=== PATIENT | female | born 1965 | race Caucasian/White ===

== ENCOUNTER 2022-05-13 11:18 | Outpatient (REF) | payer OTHER, SELFPAY ==
[2022-05-13 14:03] LABS: Hematocrit 38.7 % (37.0-47.0); Hemoglobin 13.1 g/dl (12.0-16.0); Mean Corpuscular HGB Conc 33.9 g/dl (31.0-35.0); Mean Corpuscular Hemoglobin 29.7 pg (27.0-33.0); Mean Corpuscular Volume 87.8 fL (80.0-98.0); Mean Platelet Volume 10.4 fL (9.4-12.3); Platelet Count 281 X10*3/uL (160-400); Red Blood Count 4.41 X10*6/uL (4.20-5.50); White Blood Count 8.4 X10*3/uL (4.8-10.8)
[2022-05-13 14:30] LABS: Alanine Aminotransferase 6 U/L (0-31); Albumin Level 4.1 g/dL (3.5-5.0); Alkaline Phosphatase 124 U/L (39-117); Anion Gap 16 (12-20); Aspartate Amino Transferase 16 U/L (5-31); Bilirubin Total 0.3 mg/dL (0.0-1.0); Blood Urea Nitrogen 9 mg/dL (9-16); Calcium 8.9 mg/dL (8.4-10.2); Carbon Dioxide 24 mmol/L (22-29); Chloride 100 mmol/L (96-108); Cholesterol 265 mg/dL; Estimated Glomerular Filt Rate > 60; Glucose Fasting 84 mg/dL (60-99); HDL Cholesterol 49 mg/dL; LDL Cholesterol Calculated 197 mg/dl; Potassium 4.6 mmol/L (3.3-5.1); Sodium 135 mmol/L (135-145); Total Protein 6.6 g/dL (6.5-8.0); Triglycerides 96 mg/dL
[2022-05-13 14:50] LABS: TSH reflex Free T4 3.21 uIU/mL (0.32-4.0)
[2022-05-17 15:56] LABS: Vitamin D 25-OH, D2 26 ng/mL; Vitamin D 25-OH, D3 8 ng/mL; Vitamin D 25-OH, Total 34 ng/mL (30-100)
== END 2022-05-13 11:19 | disposition home or self-care (01) ==
LOC: HO.WFDLDS 11:18
PROVIDERS: Visit Provider Hospitalist
DX: Z00.00 Encounter for general adult medical examination without abnormal findings (principal); E55.9 Vitamin D deficiency, unspecified
CPT/HCPCS: 36415; 80053; 80061; 82306; 84443; 85027

== ENCOUNTER 2022-11-09 12:59 | Outpatient (REF) | payer OTHER, SELFPAY ==
--- NOTE | ~2022-11-09 | XR_ITS ---
EXAMINATION: XR LUMBOSACRAL SPINE CLINICAL INFORMATION: Lumbar radiculopathy COMPARISON: None available. TECHNIQUE: Three views of the lumbosacral spine. FINDINGS: There is 8mm anterior subluxation of L4 with respect L5. Bone alignment is otherwise normal. No fracture or dislocation. Degenerative disc disease at T12-L1. Mild degenerative disc disease at L4-L5. Lower lumbar spine facet arthritis. Atherosclerotic disease. XR/XR lumbar spine 2-3V IMPRESSION: 8 mm anterior subluxation of L4 with respect L5. Degenerative disc disease at T12-L1 and L4-L5. Lower lumbar spine facet arthritis.
== END 2022-11-09 13:00 | disposition home or self-care (01) ==
LOC: HO.XRAY 12:59
PROVIDERS: PCP Hospitalist; Visit Provider Hospitalist
DX: M54.16 Radiculopathy, lumbar region (principal)
CPT/HCPCS: 72100

== ENCOUNTER 2022-11-17 12:06 | Outpatient (REF) | payer OTHER, SELFPAY ==
[2022-11-17 15:12] LABS: TSH reflex Free T4 2.74 uIU/mL (0.32-4.0)
[2022-11-22 15:39] LABS: Vitamin D 25-OH, D2 8 ng/mL; Vitamin D 25-OH, D3 15 ng/mL; Vitamin D 25-OH, Total 23 ng/mL (30-100)
== END 2022-11-17 12:07 | disposition home or self-care (01) ==
LOC: HO.WFDLDS 12:06
PROVIDERS: Visit Provider Hospitalist
DX: E66.01 Morbid (severe) obesity due to excess calories (principal); E55.9 Vitamin D deficiency, unspecified; E03.9 Hypothyroidism, unspecified
CPT/HCPCS: 36415; 82306; 84443

== ENCOUNTER 2022-11-27 15:02 | Outpatient (REF) | payer OTHER, SELFPAY ==
--- NOTE | ~2022-11-27 | XR_ITS ---
EXAMINATION: XR LUMBOSACRAL SPINE WITH OBLIQUES CLINICAL INFORMATION: Spondylolisthesis COMPARISON: Previous x-ray October 2022 TECHNIQUE: AP lateral and flexion-extension views of the lumbar spine, 4 views FINDINGS: There is 1 cm anterior subluxation of L4 respect L5. This increases to 1.3 cm with flexion. Is unchanged with extension. Bone alignment is otherwise normal. Degenerative changes of the lower thoracic spine and at T12-L1. Mild disc space narrowing at L4-L5. Lower lumbar spine facet arthritis. Atherosclerotic disease. XR/XR lumbar spine 4V min IMPRESSION: 1 cm anterior subluxation of L4 with respect L5. This increases to 1.3 cm with flexion.
== END 2022-11-27 15:03 | disposition home or self-care (01) ==
LOC: HO.HOSX 15:02
PROVIDERS: PCP Hospitalist; Visit Provider Physician Assistant
DX: M43.16 Spondylolisthesis, lumbar region (principal); R20.0 Anesthesia of skin
CPT/HCPCS: 72110; 99202

== ENCOUNTER → 2022-12-07 11:23 | Outpatient (BNVA) | payer OTHER, SELFPAY | PROVIDERS: PCP Hospitalist; Visit Provider Nurse Practitioner Family | DX: M43.16 Spondylolisthesis, lumbar region (principal); M54.16 Radiculopathy, lumbar region; S33.140A Subluxation of L4/L5 lumbar vertebra, initial encounter; R51.9 Headache, unspecified; B02.29 Other postherpetic nervous system involvement | CPT/HCPCS: 99202 ==

== ENCOUNTER → 2022-12-25 10:57 | Outpatient (BNVA) | payer OTHER, SELFPAY | PROVIDERS: PCP Hospitalist; Visit Provider Physician Assistant | DX: S33.140A Subluxation of L4/L5 lumbar vertebra, initial encounter (principal) | CPT/HCPCS: 99212 ==

== ENCOUNTER → 2023-01-20 14:03 | Outpatient (BNVA) | payer OTHER, SELFPAY | PROVIDERS: PCP Hospitalist; Visit Provider Neurological Surgery | DX: S33.140A Subluxation of L4/L5 lumbar vertebra, initial encounter (principal) | CPT/HCPCS: Q3014 ==

== ENCOUNTER → 2023-02-02 13:07 | Outpatient (BNV) | payer OTHER, SELFPAY | PROVIDERS: Admitting Provider Neurological Surgery; PCP Hospitalist; Visit Provider Internal Medicine Cardiovascular Disease | DX: R00.1 Bradycardia, unspecified (principal) | CPT/HCPCS: 93010 ==

== ENCOUNTER 2023-02-16 05:58 | Inpatient (IN) | payer OTHER, SELFPAY ==
--- NOTE | 2023-02-02 | ECG_ITS ---
Test Reason : preop Blood Pressure : / mmHG Vent. Rate : 057 BPM Atrial Rate : 057 BPM P-R Int : 156 ms QRS Dur : 076 ms QT Int : 422 ms P-R-T Axes : 058 054 053 degrees QTc Int : 410 ms Sinus bradycardia Otherwise normal ECG No previous ECGs available Referred By: Quin Adrian Electronically Signed By:Ralph Jeong
[2023-02-02 12:33] VITALS: BP 131/80; PULSE 58; RESP 20; O2SAT 97; BMI 39.9
--- NOTE | 2023-02-02 12:46 | P.CONAN_ITS ---
Documented by User: Quin Adrian NP 02/11/23 12:18 HPI - Anesthesia Eval Consult details Narrative: 57yo F for L4-5 Oblique Lumbar Interbody Fusion, 02/16/23 No recent illness No CP/SOB with housework, groceries (limited to back pain) Smoker GERD controlled with ppi Hypothyroid with nml TSH 11/2022 ON LICENSE OF [facility] Active Problems Active Problems: All Active Problems (Updated 02/02/23 @ 12:19 by Keila Stewart RN) Normal physical exam (Acute) Hypothyroidism (acquired) (Acute) High cholesterol (Acute) Obesity (BMI 30-39.9) (Acute) Lumbar back pain with radiculopathy affecting left lower extremity (Acute) Subluxation of L4-L5 lumbar vertebra (Acute) Spondylolisthesis, lumbar region (Acute) Numbness in both hands (Acute) Post herpetic neuralgia (Acute) Chronic daily headache (Acute) History of shingles (Acute) Morbid obesity (Acute) Feeling grief (Acute) Vitamin D deficiency (Acute) Past Medical History Medical History (Updated 02/02/23 @ 12:19 by Keila Stewart RN) Arthritis Back pain Chronic daily headache Depression Elevated cholesterol Feeling grief Fibromyalgia GERD (gastroesophageal reflux disease) History of shingles Morbid obesity Numbness Thyroid disease Vitamin D deficiency Family History Family history of problems with anesthesia: No Surgical History Surgical History (Updated 02/02/23 @ 12:20 by Keila Stewart RN) History of carpal tunnel repair Hx of bariatric surgery Hx of section Hx of neck surgery History of Problems with Anesthesia: No Social History Social History Household Members: Children Household Members Other:: son Housing: House Are you a primary resident care director to a significant other at home: No Do you presently have visiting nurse or other home services: No Alcohol intake: never Patient Tobacco Use Status: Current everyday Tobacco user Tobacco use type: Cigarette Cigarette Packs Per Day: 1 Cigarettes Per Day: 20.0 Years Smoked: 42 Smoked in Last 30 Days: Yes e-Cigarette/Vaping Use: Never Used Patient Interested in Nicotine Replacement: No Use of substances other than those prescribed or required for medical reasons: Yes Substance Use Type: Marijuana Substance Use Frequency: Daily Have you been hit, kicked, punched, or otherwise hurt by someone within the past year? If so, by whom?: No Are you DNR?: No Advance Directives: No Advance Directives Information Provided: No Advance Directives on File: No Eating poorly because of decreased appetite: No Nutrition Risks: No Nutritional Risk Patient : No : No Poor oral hygiene: No Meds Allergies Allergy/AdvReac Type Severity Reaction Status Date / Time prednisone Allergy Unknown Verified 12/07/22 11:33 Home Medications Medication Instructions Recorded Confirmed Last Taken Type sumatriptan succinate 100 mg tablet 100 mg PO DAILY PRN migraine 05/13/22 02/16/23 11/16/22 History cetirizine 10 mg tablet (Zyrtec) 10 mg PO DAILY 02/02/23 02/16/23 02/16/23 History hydroxyzine HCl 25 mg tablet 25 mg PO BEDTIME PRN Insomnia 02/02/23 02/16/23 02/15/23 History omeprazole 20 mg tablet,delayed 20 mg PO BID 02/02/23 02/16/23 02/15/23 History release sertraline 100 mg tablet 100 mg PO DAILY 02/02/23 02/16/23 02/16/23 History Exam Exam Date and Time: February 02, 2023 1246 Height,Weight and Vital Signs: Height 5 ft 2 in Weight 98.883 kg Last Vital Signs Pulse 58 02/02/23 12:33 Resp 20 02/02/23 12:33 BP 131/80 02/02/23 12:33 Pulse Ox 97 02/02/23 12:33 O2 Del Method Room Air 02/02/23 12:33 Pertinent Lab Results Pertinent Lab Results: Lab Results 02/02/23 02/02/23 Range/Units 13:18 13:18 WBC 6.6 (4.8-10.8) X10*3/uL RBC 4.39 (4.20-5.50) X10*6/uL Hgb 11.8 L (12.0-16.0) g/dl Hct 36.1 L (37.0-47.0) % MCV 82.2 (80.0-98.0) fL MCH 26.9 L (27.0-33.0) pg MCHC 32.7 (31.0-35.0) g/dl RDW 17.4 H (11.0-16.0) % Plt Count 261 (160-400) X10*3/uL MPV 10.9 (9.4-12.3) fL Absolute Nucleated RBC 0.000 (0.0-0.012) X10*3/uL Nucleated RBC % (auto) 0.0 (0.0-0.2) /100WBC Sodium 138 (135-145) mmol/L Potassium 4.3 (3.3-5.1) mmol/L Chloride 105 (96-108) mmol/L Carbon Dioxide 26 (22-29) mmol/L Anion Gap 11 L (12-20) BUN 8 L (9-16) mg/dL Creatinine 0.77 (0.5-1.4) mg/dL Estim Creat Clear Calc 87.5 Estimated GFR > 60 Random Glucose 84 (60-115) mg/dL Calcium 9.0 (8.4-10.2) mg/dL Narrative Narrative: EKG 01/2023 Vent. Rate : 057 BPM ? ? Atrial Rate : 057 BPM ?? P-R Int : 156 ms? QRS Dur : 076 ms ? ? QT Int : 422 ms ? ? ? P-R-T Axes : 058 054 053 degrees ?? QTc Int : 410 ms ? Sinus bradycardia Otherwise normal ECG No previous ECGs available Airway Mallampati Class: II TM Dist: >3cm Neck ROM: Limited Loose/Missing/Broken Teeth: No Heart: RRR Lungs: CTAB Assessment and Plan Assessment Anesthesia Assessment: Anesthesia Plan Discussed, Smoking Cess. Discussed and PAT Visit Final Anesthetic Review Family History of Problems with Anesthesia: No History of Problems with Anesthesia: No Documented by User: Moreno Doty MD 02/16/23 07:29 ON LICENSE OF [facility] Past Medical History Medical History (Updated 02/02/23 @ 12:19 by Keila Stewart RN) Arthritis Back pain Chronic daily headache Depression Elevated cholesterol Feeling grief Fibromyalgia GERD (gastroesophageal reflux disease) History of shingles Morbid obesity Numbness Thyroid disease Vitamin D deficiency Surgical History Surgical History (Updated 02/02/23 @ 12:20 by Keila Stewart RN) History of carpal tunnel repair Hx of bariatric surgery Hx of section Hx of neck surgery Social History Social History Household Members: Children Household Members Other:: son Housing: House Are you a primary resident care director to a significant other at home: No Do you presently have visiting nurse or other home services: No Alcohol intake: never Patient Tobacco Use Status: Current everyday Tobacco user Tobacco use type: Cigarette Cigarette Packs Per Day: 1 Cigarettes Per Day: 20.0 Years Smoked: 42 Smoked in Last 30 Days: Yes e-Cigarette/Vaping Use: Never Used Patient Interested in Nicotine Replacement: No Use of substances other than those prescribed or required for medical reasons: Yes Substance Use Type: Marijuana Substance Use Frequency: Daily Have you been hit, kicked, punched, or otherwise hurt by someone within the past year? If so, by whom?: No Are you DNR?: No Advance Directives: No Advance Directives Information Provided: No Advance Directives on File: No Eating poorly because of decreased appetite: No Nutrition Risks: No Nutritional Risk Patient : No : No Poor oral hygiene: No Meds Allergies Allergy/AdvReac Type Severity Reaction Status Date / Time prednisone Allergy Unknown Verified 12/07/22 11:33 Home Medications Medication Instructions Recorded Confirmed Last Taken Type sumatriptan succinate 100 mg tablet 100 mg PO DAILY PRN migraine 05/13/22 02/16/23 11/16/22 History cetirizine 10 mg tablet (Zyrtec) 10 mg PO DAILY 02/02/23 02/16/23 02/16/23 History hydroxyzine HCl 25 mg tablet 25 mg PO BEDTIME PRN Insomnia 02/02/23 02/16/23 02/15/23 History omeprazole 20 mg tablet,delayed 20 mg PO BID 02/02/23 02/16/23 02/15/23 History release sertraline 100 mg tablet 100 mg PO DAILY 02/02/23 02/16/23 02/16/23 History Assessment and Plan Final Anesthetic Review NPO: Yes ASA Class: III Final Preanesthetic Review: No Changes in Pt Med Stat, Meds/Allgs Chart Reviewed, Consent Obtained/Reviewed and Anes Risks/Benef Reviewed Patient Risk: Intermediate Procedure Risk: Intermediate Anesthetic Plan Anesthetic Plan: GA and Agree w/ Assess. and Plan Disposition: Standard PACU
[2023-02-02 14:08] LABS: Hematocrit 36.1 % (37.0-47.0); Hemoglobin 11.8 g/dl (12.0-16.0); Mean Corpuscular HGB Conc 32.7 g/dl (31.0-35.0); Mean Corpuscular Hemoglobin 26.9 pg (27.0-33.0); Mean Corpuscular Volume 82.2 fL (80.0-98.0); Mean Platelet Volume 10.9 fL (9.4-12.3); Platelet Count 261 X10*3/uL (160-400); Red Blood Count 4.39 X10*6/uL (4.20-5.50); Red Cell Distribution Width 17.4 % (11.0-16.0); White Blood Count 6.6 X10*3/uL (4.8-10.8)
[2023-02-02 14:46] LABS: Anion Gap 11 (12-20); Blood Urea Nitrogen 8 mg/dL (9-16); Carbon Dioxide 26 mmol/L (22-29); Chloride 105 mmol/L (96-108); Creatinine Clr Calc Pharmacy 87.5; Estimated Glomerular Filt Rate > 60; Glucose Random 84 mg/dL (60-115); Potassium 4.3 mmol/L (3.3-5.1); Sodium 138 mmol/L (135-145)
[2023-02-16] VITALS (13 sets, daily range): BP systolic 90–128; BP diastolic 50–74; PULSE 65–85; RESP 12–20; TEMP 36.1–36.8; O2SAT 92–98
--- NOTE | ~2023-02-16 | FL_ITS ---
EXAMINATION: XR FLUOROSCOPY WITH IMAGES CLINICAL INFORMATION: Low back pain. Interbody fusion. COMPARISON: None available. TECHNIQUE: Fluoroscopy Supervised By: Dr. Pineda. Fluoroscopy Time: 1.2 minutes. Cumulative Dose: 23.23 mGy. DAP: 0.927 Gy-cm2. Images: 3. FINDINGS: There are 3 digital images obtained with disc prosthesis at the L4-L5 disc level stabilized with bilateral L4 and L5 pedicle screws and interconnecting brynn. Visualized L4 and L5 vertebral height and L5-S1 disc level is preserved. FL/FL guidance in OR IMPRESSION: L4-L5 disc fusion with hardware as described above. Fluoroscopy guidance was provided to referring physician during surgery.
[2023-02-16] MEDS: Lactated Ringers 1,000 ML 100 ML IVCONT (06:28)
[2023-02-16] MEDS: Gabapentin 300 MG CAPSULE PO (06:29)
[2023-02-16] MEDS: methocarbamoL 750 MG TABLET PO (06:29)
--- NOTE | 2023-02-16 07:06 | MHC.SHP ---
Pre-Procedural Eval Section A Date of Service: 02/16/23 The patient is an INPATIENT: No Changes since office visit: No Cold of Flu in the past 2 weeks, No New Medical Problems, No Changes in Medication and No Patient answered all questions The History & Physical has been completed within 30 days and I have reviewed it.: No Section B Chief Complaint: Subluxation of L4/L5 lumbar vertebra, initial enco Allergies: Allergies Allergy/AdvReac Type Severity Reaction Status Date / Time prednisone Allergy Unknown Verified 12/07/22 11:33 Review of Systems Sugical H&P ROS: Negative: Constitution, Cardiovascular, Respiratory, Neurological, Psychiatric, Hem-Onc, Allergic/Immunologic, Gastrointestinal, Genitourinary, Musculoskeletal, Integumentary, Endocrine and Eyes/Ears/Nose/Throat Exam Surgical H&P Exam: Not Evaluated: HEENT, Not Evaluated: Heart, Not Evaluated: Lungs, Not Evaluated: Extremities, Not Evaluated: Abdomen, Not Evaluated: Skin and Not Evaluated: Neurological Plan Diagnosis/Plan: Unchanged I have reviewed the history and physical and performed a pertinent physical examination on my patient. No changes have occurred unless specified. L4-5 OLIF Time Spent With Patient Time: Total time managing care of this patient today _10___ minutes.
--- NOTE | 2023-02-16 08:04 | PM.DS ---
DS: Providers Provider Date of Service: 02/16/23 Date of admission: 02/16/23 05:58 Date of discharge: 02/16/23 Primary care physician: Yamel Ann NP Admitting clinician: Ta Pineda DS: Diagnosis Discharge Diagnosis (1) Subluxation of L4-L5 lumbar vertebra: Status: Acute DS: Summary Time Spent with Patient Time attestation: Total time managing care of this patient today ____ minutes. Discharge coordination time: Less than 30 minutes Quality: Safe Use of Opioids Does Pt have an Active Cancer Diagnosis on the Problem List?: No Quality: Stroke Does the patient have a stroke diagnosis?: No Physical Exam Vital Signs: Vital Signs: Last Vital Signs Temp 98.2 F 02/16/23 06:02 Pulse 65 02/16/23 06:02 Resp 20 02/16/23 06:02 BP 128/69 02/16/23 06:02 Pulse Ox 96 02/16/23 06:02 O2 Del Method Room Air 02/16/23 06:02 BMI result Body Mass Index 39.9 Discharge Plan Discharge Anticipated Discharge Date/Time: 02/16/23 15:06 Patient Disposition: Home, Self-Care Discharge Diagnosis: L4-5 spondylolisthesis Referrals: Yamel nAn NP [Primary Care Provider] - 1 Week Discharge Medications: New docusate sodium [Colace] 100 mg capsule 100 mg PO BID Qty: 20 0RF oxycodone 5 mg tablet See Rx Instructions .ROUTE .COMPLEX PRN (Reason: pain) Qty: 40 0RF Rx Instructions: 1-2 tabs po q 4 hours prn pain Partial Fill upon patient request. 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 We ask you avoid heavy lifting or acitivities that cause pain. As a general rule, 8lbs is a safe limit for lifting right after surgery. Walk as much as you feel comfortable but not to exhaustion. You will feel extra tired the first few days after surgery. Stay well hydrated. It is OK to walk up and down stairs You may return to driving when you are off narcotics (such as vicodin, oxycodone, dilaudid, etc), and you are back to normal functional capacity. If you have any concerns please check with office before driving. Return to work is specific to each patient and each surgery, so please speak with your doctor/PA at first follow up. Please bring paperwork such as FMLA at that time if you need it filled out. Medications: For optimum pain control, it is best to start with a combination of 500 mg of Tylenol every 4 hours with 600 mg of Motrin every 8 hours, and use narcotics as needed in between for breakthrough pain. We will give you a short supply of narcotics after surgery (usually one weeks worth). If you need more please call the office but do not use more than prescribed. You will need to give our office 48 hours notice if you need narcotics refilled and we do not fill narcotics on weekends or evenings. If you are on a narcotic, it is a good idea to take a stool softener such as colace or senna to avoid constipation If you take blood thinner such as aspirin, Plavix, Coumadin, Effient, Eliquis etc for conditions such as Afib, DVT, Pulmonary embolus, coronary disease, stents etc please speak with your surgeon about specific details as to when you can resume these medications. Follow up: Please call the office, , after surgery to arrange a 3 week follow up for wound check. Wound Care: You may remove your dressing on the first day after surgery. You may leave open to air. Please do not remove the steri strips underneath. they will fall off on their own in one week. IT IS NORMAL FOR THE WOUND TO OOZE OR BE BLOODY FOR A FEW DAYS AFTER SURGERY. IF THIS HAPPENS JUST PLACE NEW DRESSING OVER IT TO AVOID STAINING CLOTHES. You may shower on post op day # 1 We ask that you do not let the water soak the wound. If it does get wet, just towel dry lightly. Please do not scrub your incision or place any type of chemical/ointment on the wound. No tub baths, pools or jacuzzis for one month. If you have any leaking or redness from your wound, or fevers, please call office Care Plan Goals: discharge home Health Concerns: none Plan of Treatment: discharge home Assessment: stable
--- NOTE | 2023-02-16 10:54 | W.PM.OPN ---
Operative Note Operative Note Date of Service: 02/16/23 Narrative: Preop Diagnosis: 1.) lumbar degenerative spondylolisthesis L4-5 with neurogenic claudication Procedure: L4-5 discectomy, arthrodesis and implantation cage through an anterolateral, retroperitoneal approach; posterior instrumented fusion L4- L5; allograft Consent Informed Consent was obtained for this operation. I have explained the nature, purpose and benefits of the operation. I have discussed the risks and benefit of the operation including possible complications or adverse events with patient/family. Alternative(s) were discussed with the patient with their relative benefits and risks as well as the consequences of not accepting the operation were included in obtaining consent. Surgeon: BRENDAN BRENNER MD, PHD Procedure Assisted By: Guilherme Lira PA-C Description of Procedure Tthis 57-year-old female is suffering from back pain and neurogenic claudication due to a grade 2 spondylolisthesis The patient was offered an oblique lumbar interbody fusion L4-5. The procedure complications were explained. The patient was consented. The patient was brought to the operating room and endotracheally intubated. The patient was turned in a lateral position with the left side up. Prep and drape was done followed by timeout. A small incision was made in the left lower abdominal quadrant. The muscle fascia was opened after which the 3 muscle layer was split to enter the retroperitoneal space. Dilators were docked in the anterior one third of the L4-5 disc space followed by a retractor. The retractor was opened. The L4-5 disc space was exposed. An annulotomy was done after which an elevator Childs was used to release the disc material from its endplates and to perforate the contralateral side. A partial discectomy was done. An 8 and 10 mm height trial implant were inserted. The discectomy was completed. The endplates were prepared. An 10 x 45 mm with 6 degree lordosis 4 web cage filled with allograft was inserted into the disc space under fluoroscopic guidance. This resulted in reduction of the spondylolisthesis. The retractor was removed. Hemostasis was done. The incision was closed in 2 layers. Steri-Strips used to approximate incision. An OpSite with Tegaderm was used to cover the incision. This marked first part of the procedure. The patient was turned prone on the David spine table. 2C arms were installed for fluoroscopy. Prep and drape was done followed by a second timeout. 2 paramedian incisions were made lateral from the L4-5 pedicles. The muscle fascia was opened after which the muscle layer was split bluntly to expose the posterolateral gutter. The following steps were taken. A pediguard tap was used to create a transpedicular trajectory into the vertebral body. A K wire was placed. A specially designed instrument was advanced over the K wire to decorticate the posterolateral gutter in preparation for the posterolateral fusion. A pedicle screw was advanced over the K wire and the K wire was removed. The steps were done for the bilateral L4-5 pedicles. A total of 4 screws were placed with a diameter of 6.5 x 40 mm. Pedicle screws were connected with 40 mm brynn bilaterally and locked down with locking caps. The extension towers were removed. The posterolateral gutter was filled with allograft to complete the posterolateral [] fusion Hemostasis was done and the incision was closed in 2 layers. Steri-Strips were used to approximate the incision. An OpSite were taken and was used to cover the incision. All sponge and needle counts were correct. Patient was extubated and transferred in stable is to recovery room. Anesthesia: General Estimated Blood Loss (ml): 30 Duration of Surgery: 2 hours Postoperative Plan: Admit to inpatient for observation Complications: None
[2023-02-16] MEDS: oxyCODONE HCl Immed Release 5 MG TABLET PO (11:24)
[2023-02-16] MEDS: fentaNYL citrate/PF 100 MCG/2 ML VIAL 25 MCG IVPUSH (11:24)
--- NOTE | 2023-02-16 12:50 | HO.NEURO.PN ---
Neurosurgery Operative Note Date of Service: 02/16/23 Narrative: Postop day 0 minimally invasive L4-5 oblique lumbar interbody fusion patient seen in PACU, overall looks great, pain is reasonably well controlled. She has been able to drink some liquids and hold that down without an issue. She has been up walking with PT and did well. She has been able to void on her own. Afebrile, vital signs are stable physical exam: Patient is awake alert oriented sitting up in a chair, full strength of bilateral lower extremities, abdomen obese nondistended nontender, no signs of hematoma the left lower quadrant incision, back dressings of small amount of standing but no signs of hematoma. Impression: Patient is postop day 0 minimally invasive L4-5 oblique lumbar interbody fusion for correction of spondylolisthesis. Patient requesting for discharge same day of surgery. She otherwise looks okay and has met criteria as outlined above. Dr. Pineda aware. I I gave the patient's family thorough discharge instructions and will contact him later just to check on her home.
--- NOTE | 2023-02-16 13:41 | PM.DS ---
DS: Providers Provider Date of Service: 02/16/23 Date of admission: 02/16/23 05:58 Date of discharge: 02/16/23 Primary care physician: Yamel Ann NP Admitting clinician: Ta Pineda DS: Diagnosis Discharge Diagnosis (1) Subluxation of L4-L5 lumbar vertebra: Status: Acute DS: Summary Time Spent with Patient Time attestation: Total time managing care of this patient today ____ minutes. Discharge coordination time: Less than 30 minutes Quality: Safe Use of Opioids Does Pt have an Active Cancer Diagnosis on the Problem List?: No Quality: Stroke Does the patient have a stroke diagnosis?: No Physical Exam Vital Signs: Vital Signs: Last Vital Signs Temp 97.0 F 02/16/23 12:33 Pulse 85 02/16/23 12:45 Resp 20 02/16/23 12:33 BP 116/74 02/16/23 12:45 Pulse Ox 96 02/16/23 12:45 O2 Del Method Room Air 02/16/23 12:33 O2 Flow Rate 2 02/16/23 12:03 BMI result Body Mass Index 39.9 Discharge Plan Discharge Anticipated Discharge Date/Time: 02/16/23 15:06 Patient Disposition: Home, Self-Care Discharge Diagnosis: L4-5 spondylolisthesis Referrals: Yamel Ann NP [Primary Care Provider] - 1 Week Discharge Medications: New docusate sodium [Colace] 100 mg capsule 100 mg PO BID Qty: 20 0RF oxycodone 5 mg tablet See Rx Instructions .ROUTE .COMPLEX PRN (Reason: pain) Qty: 40 0RF Rx Instructions: 1-2 tabs po q 4 hours prn pain Partial Fill upon patient request. 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 We ask you avoid heavy lifting or acitivities that cause pain. As a general rule, 8lbs is a safe limit for lifting right after surgery. Walk as much as you feel comfortable but not to exhaustion. You will feel extra tired the first few days after surgery. Stay well hydrated. It is OK to walk up and down stairs You may return to driving when you are off narcotics (such as vicodin, oxycodone, dilaudid, etc), and you are back to normal functional capacity. If you have any concerns please check with office before driving. Return to work is specific to each patient and each surgery, so please speak with your doctor/PA at first follow up. Please bring paperwork such as FMLA at that time if you need it filled out. Medications: For optimum pain control, it is best to start with a combination of 500 mg of Tylenol every 4 hours with 600 mg of Motrin every 8 hours, and use narcotics as needed in between for breakthrough pain. We will give you a short supply of narcotics after surgery (usually one weeks worth). If you need more please call the office but do not use more than prescribed. You will need to give our office 48 hours notice if you need narcotics refilled and we do not fill narcotics on weekends or evenings. If you are on a narcotic, it is a good idea to take a stool softener such as colace or senna to avoid constipation If you take blood thinner such as aspirin, Plavix, Coumadin, Effient, Eliquis etc for conditions such as Afib, DVT, Pulmonary embolus, coronary disease, stents etc please speak with your surgeon about specific details as to when you can resume these medications. Follow up: Please call the office, , after surgery to arrange a 3 week follow up for wound check. Wound Care: You may remove your dressing on the first day after surgery. You may leave open to air. Please do not remove the steri strips underneath. they will fall off on their own in one week. IT IS NORMAL FOR THE WOUND TO OOZE OR BE BLOODY FOR A FEW DAYS AFTER SURGERY. IF THIS HAPPENS JUST PLACE NEW DRESSING OVER IT TO AVOID STAINING CLOTHES. You may shower on post op day # 1 We ask that you do not let the water soak the wound. If it does get wet, just towel dry lightly. Please do not scrub your incision or place any type of chemical/ointment on the wound. No tub baths, pools or jacuzzis for one month. If you have any leaking or redness from your wound, or fevers, please call office Care Plan Goals: discharge home Health Concerns: none Plan of Treatment: discharge home Assessment: stable
== END 2023-02-16 13:25 | disposition home or self-care (01) | DRG 459 ==
PROVIDERS: Nurse Practitioner; Admitting Provider Neurological Surgery; PCP Hospitalist; Visit Provider Neurological Surgery
PROC: 0SG00A0 Fusion of Lumbar Vertebral Joint with Interbody Fusion Device, Anterior Approach, Anterior Column, Open Approach (ICD-10-PCS; principal; 2023-02-16 07:30)
DX: M43.16 Spondylolisthesis, lumbar region (principal); G95.19 Other vascular myelopathies; M79.7 Fibromyalgia; K21.9 Gastro-esophageal reflux disease without esophagitis; Z98.84 Bariatric surgery status; F17.210 Nicotine dependence, cigarettes, uncomplicated; Z71.6 Tobacco abuse counseling; Z79.899 Other long term (current) drug therapy
CPT/HCPCS: 36415; 80048; 85027; 93005; 97161; C1713; J0131; J0690; J1100; J1170; J1885; J2250; J2370; J2405; J3010; L8699

== ENCOUNTER → 2023-02-16 05:58 | Outpatient (BNV) | payer OTHER, SELFPAY | PROVIDERS: Admitting Provider Neurological Surgery; PCP Hospitalist; Visit Provider Neurological Surgery | DX: M48.062 Spinal stenosis, lumbar region with neurogenic claudication (principal); Z48.89 Encounter for other specified surgical aftercare | CPT/HCPCS: 22558; 22612; 22840; 22853 ==

== ENCOUNTER 2023-03-09 13:47 | Outpatient (REF) | payer OTHER, SELFPAY ==
--- NOTE | ~2023-03-09 | XR_ITS ---
EXAMINATION: XR LUMBOSACRAL SPINE WITH OBLIQUES CLINICAL INFORMATION: Pain COMPARISON: 11/27/2022 TECHNIQUE: AP, both oblique, and lateral views of the lumbar spine. Lateral view of the lumbosacral junction. FINDINGS: Patient is status post L5-L4 fusion and placement of intervertebral disc spacer. There is no instability on flexion and extension views. There is persistent mild L4 over L5 listhesis no evidence of fractures. And soft tissues are unremarkable. XR/XR lumbar spine 4V min IMPRESSION: Stable position of hardware at the level of L4-L5
--- NOTE | ~2023-03-09 | XR_ITS ---
EXAMINATION: XR CHEST CLINICAL INFORMATION: Pain after fall COMPARISON: None available. TECHNIQUE: 2 views of the chest were obtained. FINDINGS: No significant abnormality is noted involving the heart, lungs, mediastinum, bony thorax or soft tissues. XR/XR chest 2V IMPRESSION: Unremarkable examination.
== END 2023-03-09 13:48 | disposition home or self-care (01) ==
LOC: HO.HOSX 13:47
PROVIDERS: PCP Hospitalist; Visit Provider Physician Assistant
DX: M54.16 Radiculopathy, lumbar region (principal); W19.XXXA Unspecified fall, initial encounter
CPT/HCPCS: 71046; 72110; 99212

== ENCOUNTER 2023-03-09 13:47 | Outpatient (AMB) | payer OTHER, SELFPAY ==
--- NOTE | 2023-03-09 14:21 | HO.SPINEOV ---
Intake Intake Visit Reasons: 3 weeks after surgery Intake Note: Ms. Duenas is here today for her 1st post-op visit. 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 She is 3 weeks s/p ?L4-5 discectomy and fusion. She reports continued concern that she fell on her first day home post op. She states she fell off her toilet into her bathtub, hitting her R ribs under the breast area. She called the office after and was encouraged at that time to seek emergency medical services if she felt her rib pain was severe enough to warrant concern or affect breathing. She opted out of receiving treatment and came into the office today concerned about her rib pain. She also endorsed continued L leg pain and weakness, but reports her low back pain is significantly reduced. She inquired about X-ray imaging to rule out a rib fracture. She was informed that a CT scan would be the best diagnostic modality to review rib fractures, and she was encouraged to go to [facility] across the street for this imaging. She declined to do so and continued to request XR imaging of her chest. On physical exam the patients incision sites have healed well without signs of erythema or flutuance. No erythema or abraison noted on the ribs where the patient reports she fell. She has 5/5 strength in her RLE and 4/5 strength in her LLE (pain limiting). She is hyper-reflexive more so on the R than the L (both upper extremities and lower extremities). She has (+) non-sustained clonus, (+) duran's. (-) straight leg raise bilaterally. Sensation grossly intact. This exam is relatively consistent with JOHN Lira's previous exam which states Cervical MRI shows spondylolisthesis at C7-T1 with some foraminal narrowing.? There is artifact in the study, I do not see any significant central canal stenosis or any T2 cord signal change that would explain her hyperreflexia on the right side. It was determined the patients back was her primary issue of concern. The patient does endorse this. Due to the patient's obvious continued concern for injury post-fall, we will order lumbar X-rays to ensure there is no damage to the instruments placed during surgery. We will also order a 2 view CXR to evaluate for any gross injury to the area where the patient claims to have fallen. We will see her back in the office in 6 weeks for her second post-operative visit. Patient case was discussed with Dr. Pineda and he is agreeable to this plan. Total amount of time spent in this visit was 30 minutes in discussion of symptoms, MRI imaging review and subsequent plan of care. Timothy Pineda MD,PhD [facility] Orders: Orders XR lumbar spine 4V min Today M54.16 - Radiculopathy, lumbar region XR chest 2V Today W19.XXXA - Unspecified fall, initial encounter Medications: Discontinued sertraline 150 mg (1.5 x 100 mg) PO DAILY 45 tabs 2RF hydroxyzine HCl 25 mg PO DAILY PRN 20 tabs 3RF for anxiety lorazepam Take one tab 30-60 min prior to a rescheduled MRI on 12/19/22 1 mg PO DAILY 1 day 1 tab 0RF anxiety F40.240 - Claustrophobia, M54.16 - Radiculopathy, lumbar region Coding Level of Care Code Est Pt Level 4 (17624) Diagnoses Lumbar back pain with radiculopathy affecting left lower extremity M54.16
== END 2023-03-09 14:41 | disposition home or self-care (01) ==
PROVIDERS: PCP Hospitalist; Visit Provider Physician Assistant
DX: M54.16 Radiculopathy, lumbar region (principal)
CPT/HCPCS: 99214

== ENCOUNTER 2023-03-10 08:47 | Outpatient (AMB) | payer OTHER, SELFPAY ==
--- NOTE | 2023-03-10 08:51 | MHC.PC.OV ---
Vital Signs 03/10/23 08:52 Height 5 ft 2 in Weight 214 lb BMI 39.1 BP 122/82 Blood Pressure Location Lt brachial Position Sitting Pulse 63 Pulse Source Pulse Oximeter Pulse Oximetry (%) 97 Oxygen Delivery Method Room Air Intake Visit Reasons: f/u fall, redness/irritation on abdomen Intake Note: Patient is here to follow up on fall, and redness, irritation in armpit area, and some on her scalp. Allergies prednisone Allergy (Verified 03/10/23 08:56) Unknown Medication List - Last Reconciled 03/10/23 by Favian Kelly MD bupropion HCl 300 mg PO DAILY 90 days calcitriol 0.25 mcg PO DAILY cetirizine (Zyrtec) 10 mg PO DAILY docusate sodium (Colace) 100 mg PO BID hydroxyzine HCl 25 mg PO BEDTIME PRN levothyroxine 137 mcg PO DAILY 30 days omeprazole 20 mg PO BID oxycodone 5 mg PO Q6H PRN pregabalin 200 mg PO TID sertraline 100 mg PO DAILY 90 days sumatriptan succinate 100 mg PO DAILY PRN Tobacco use date assessed: 03/10/23 Dental Screening Dental Screen Date: 03/10/23 Did you have a dental visit in the last 12 months?: No Did you have a dental problem in the last 6 months where you did not have access to dental care?: No Was dental information given to patient?: Patient declined HPI f/u fall, redness/irritation on abdomen HPI Details 57 y/o female presents to f/u fall. She had fallen and had hit her ribs on her tub. X-ray yesterday and reading unavailable yet. She also reports redness/irritation on abdomen. She also reports irritation on her armpit area and scalp. HPI Comments History of Present Illness Details Documentation assistance for Favian Kelly MD, was provided by Milton Braden,? [employer] on 03/10/2023 9:46 AM EST. Arias, Dr. Kelly, have read, observed, and verified documentation.? [facility] Medical History (Updated 03/10/23 @ 09:54 by Milton Braden) Arthritis Back pain Chronic daily headache Depression Elevated cholesterol Feeling grief Fibromyalgia GERD (gastroesophageal reflux disease) History of shingles Morbid obesity Numbness Thyroid disease Vitamin D deficiency Surgical History (Updated 03/10/23 @ 08:58 by Rowena Aggarwal CMA) History of back surgery History of carpal tunnel repair Hx of bariatric surgery Hx of section Hx of neck surgery Social History Household Members: Children Household Members Other:: son Housing: House Are you a primary inpatient care manager rn to a significant other at home: No Do you presently have visiting nurse or other home services: No Alcohol intake: never Patient Tobacco Use Status: Current everyday Tobacco user Tobacco use type: Cigarette Cigarette Packs Per Day: 1 Cigarettes Per Day: 20.0 Years Smoked: 42 e-Cigarette/Vaping Use: Never Used Substance Use Type: Marijuana service: No Current occupational status: disabled Questionnaire PHQ-9 Over the last 2 weeks, how often have you been bothered by any of the following problems? 1. Little interest or pleasure in doing things: several days 2. Feeling down, depressed, or hopeless: nearly every day 3. Trouble falling or staying asleep, or sleeping too much: nearly every day 4. Feeling tired or having little energy: nearly every day 5. Poor appetite or overeating: more than half the days 6. Feeling bad about yourself - or that you are a failure or have let yourself or your family down: several days 7. Trouble concentrating on things, such as reading the newspaper or watching television: several days 8. Moving or speaking so slowly that other people could have noticed. Or the opposite - being so fidgety or restless that you have been moving around a lot more than usual: several days 9. Thoughts that you would be better off or of hurting yourself in some way: not at all Total score: 15 Source: Developed by Drs. Ab Rosales, Ruba Barnes, Kash Edwards and colleagues, with an educational kristyn from [employer]. Physical exam (Primary Care) Vital Signs: Last Vital Signs Pulse 63 03/10/23 08:52 BP 122/82 03/10/23 08:52 Pulse Ox 97 03/10/23 08:52 Oxygen Delivery Method Room Air 03/10/23 08:52 BMI result Body Mass Index 39.1 Tobacco/Smoking Status: Tobacco use Status Tobacco use date assessed 03/10/23 03/10/23 08:58 Patient Tobacco Use Status Current everyday Tobacco 03/10/23 08:58 Tobacco use type Cigarette 03/10/23 08:58 e-Cigarette/Vaping Use Never Used 03/10/23 08:58 PHQ-9: PHQ-9 Score PHQ-9: Total score 15 03/10/23 09:39 Assessment and Plan Assessment & Plan (1) Rib pain: Code(s): R07.81 - Pleurodynia Plan: Anterior rib pain after fall with impact of anterior chest in to tub wall Official x-ray read her chest x-ray is not available but I do not see any fractures of her ribs. No step-off or deformity of the ribs either. She can use meloxicam, ice/heat and splinting with a pillow when coughing or sneezing (2) Rash: Code(s): R21 - Rash and other nonspecific skin eruption Plan: Appears to be mild yeast rash under arms, at crease under pannus and in her scalp She can use not has rales shampoo Medications: New meloxicam 15 mg PO DAILY 30 tabs 2RF 30 days ketoconazole 1% (Nizoral A-D) 1 appl topical Q3D 200 mL 0RF 15 days Discontinued sertraline 150 mg (1.5 x 100 mg) PO DAILY 45 tabs 2RF hydroxyzine HCl 25 mg PO DAILY PRN 20 tabs 3RF for anxiety lorazepam Take one tab 30-60 min prior to a rescheduled MRI on 12/19/22 1 mg PO DAILY 1 day 1 tab 0RF anxiety F40.240 - Claustrophobia, M54.16 - Radiculopathy, lumbar region oxycodone s/p Discontinued Reason: Doctor's Order 5 mg PO Q6H PRN 20 tabs 0RF severe pain Coding Level of Care Code Est Pt Level 4 (87197) Diagnoses Rib pain R07.81 Rash R21
[2023-03-10 08:52] VITALS: BP 122/82; PULSE 63; O2SAT 97; BMI 39.1
== END 2023-03-10 09:56 | disposition home or self-care (01) ==
PROVIDERS: PCP Hospitalist; Visit Provider Family Medicine
DX: R07.81 Pleurodynia (principal); R21 Rash and other nonspecific skin eruption
CPT/HCPCS: 99214

== ENCOUNTER 2023-04-20 13:46 | Outpatient (AMB) | payer OTHER, SELFPAY ==
--- NOTE | 2023-04-20 14:17 | A.SPINEOV_ITS ---
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 She is s/p ?L4-5 discectomy and fusion performed on 02/16/2023. She initially had a complicated postoperative course, including a fall from a seated position to about up which caused her to fear for broken ribs. We did have a x- ray of her chest completed per her request (unremarkable), and called her with the results once it was read by Radiology. She states that today she is feeling much better than she previously did. She was initially having significant low back pain / leg pain with standing / ambulation. She is now walking much better, and reports less pain with standing from a seated position. She is accomplishing a large majority of her ADLs around the home, and feels her pain is well managed with [id number] pain remedies. X-ray imaging reveals stable posterior instrumentation and cage placement of L4-5. Her strength is full and symmtric. She is able to ambulate well and can rise from a seated position without much difficulty. Mobility is grossly intact. Sensation is grossly intact. Incision sites are well healed. No signs of drainage or edema. Radha reported that she would like to schedule follow-up appointment with Dr. Pineda to discuss the possibility of cervical spine surgery. She will be scheduled to see Dr. Pineda in the next few weeks. She no longer has any concerns reported and can be discharged the patient from this surgical course without further follow-up. Timothy Pineda MD,PhD [facility] Orders: Orders XR lumbar spine 4V min Today M54.16 - Radiculopathy, lumbar region Coding Level of Care Code Global (84911) Diagnoses Lumbar radiculopathy M54.16
== END 2023-04-20 14:44 | disposition home or self-care (01) ==
PROVIDERS: PCP Hospitalist; Visit Provider Physician Assistant
DX: M54.16 Radiculopathy, lumbar region (principal)
CPT/HCPCS: 99024

== ENCOUNTER 2023-04-20 13:46 | Outpatient (REF) | payer OTHER, SELFPAY | END 2023-04-20 13:47 | disposition home or self-care (01) | LOC: HO.HOSX 13:46 | PROVIDERS: PCP Hospitalist; Visit Provider Physician Assistant | DX: Z48.89 Encounter for other specified surgical aftercare (principal); Z98.1 Arthrodesis status | CPT/HCPCS: 72110; 99212 ==

== ENCOUNTER 2023-05-03 15:50 | Outpatient (AMB) | payer OTHER, SELFPAY ==
[2023-05-03 16:05] VITALS: BP 116/78; PULSE 72; RESP 13; TEMP 36.3; O2SAT 96; BMI 40.1
--- NOTE | 2023-05-03 16:05 | MHC.PC.OV ---
Vital Signs 05/03/23 16:05 Height 5 ft 2 in Weight 219 lb 2 oz BMI 40.1 BP 116/78 Blood Pressure Location Lt brachial Position Sitting Respiration 13 Pulse 72 Pulse Source Pulse Oximeter Temp 97.3 F Temp Source Temporal Artery Scan Pulse Oximetry (%) 96 Oxygen Delivery Method Room Air Intake Visit Reasons: fu for derm and pain Intake Note: Patient states that her dermatitis is still the same if not worse. Patient states that under her arms are are so itchy and irritated that shes unable to shave. Patient states that her dermatitis is getting worse. 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 Accompanied by: Self / Same As Patient Allergies prednisone Allergy (Verified 05/03/23 16:34) Unknown Medication List - Last Reconciled 05/03/23 by Kiara Winslow CNP bupropion HCl 300 mg PO DAILY 90 days calcitriol 0.25 mcg PO DAILY cetirizine (Zyrtec) 10 mg PO DAILY docusate sodium (Colace) 100 mg PO BID hydroxyzine HCl 25 mg PO BEDTIME PRN 30 days ketoconazole 1% (Nizoral A-D) 1 appl topical Q3D 15 days levothyroxine 137 mcg PO DAILY 30 days meloxicam 15 mg PO DAILY 30 days omeprazole 20 mg PO BID pregabalin 200 mg PO TID sertraline 100 mg PO DAILY 90 days sumatriptan succinate 100 mg PO DAILY PRN Tobacco use date assessed: 03/10/23 Dental Screening Dental Screen Date: 05/03/23 Did you have a dental visit in the last 12 months?: No Did you have a dental problem in the last 6 months where you did not have access to dental care?: No Was dental information given to patient?: Patient has dentist HPI HPI Comments History of Present Illness Details 57-year-old female presents with complaints of persistent rash to her scalp and armpits. She notes that the rash is itchy. She was evaluated in the office on 03/09/2023 for irritation or her armpit and scalp. She was prescribed ketoconazole shampoo. She notes that she has been using the sample without improvement. [facility] Medical History Arthritis Back pain Thyroid disease GERD (gastroesophageal reflux disease) Depression Numbness Elevated cholesterol Fibromyalgia Chronic daily headache History of shingles Feeling grief Vitamin D deficiency Morbid obesity Surgical History History of back surgery Hx of neck surgery Hx of bariatric surgery History of carpal tunnel repair Hx of section Family History Other Mental health disorder Substance abuse Social History Household Members: Children Household Members Other:: son Housing: House Are you a primary rn long term care to a significant other at home: No Do you presently have visiting nurse or other home services: No Alcohol intake: never Patient Tobacco Use Status: Current everyday Tobacco user Tobacco use type: Cigarette Cigarette Packs Per Day: 1 Cigarettes Per Day: 20.0 Years Smoked: 42 e-Cigarette/Vaping Use: Never Used Substance Use Type: Marijuana service: No Current occupational status: disabled Cognitive needs: No Hearing needs: No Vision needs: Yes Review of Systems Const Details: Const Denies chills, Denies fatigue, Denies fever(s), Denies headache(s) and Denies weakness ENT Denies dizziness and Denies headache(s) Card Denies chest pain, Denies lightheadedness, Denies dyspnea and Denies other (Palpitations) Resp Denies cough, Denies dyspnea, Denies wheezing and Denies other ( shortness of breath) GI Denies abdominal pain, Denies melena, Denies hematochezia, Denies change in bowel habits, Denies dyspepsia and Denies nausea Denies hematuria and Denies dysuria Musc Denies abnormal gait, Denies myalgias, Denies arthralgias, Denies numbness and Denies tingling Skin/Breast Reports as per HPI Neuro Denies abnormal gait, Denies dizziness, Denies headache(s), Denies memory loss, Denies numbness, Denies Sensory deficit (Neuro), Denies tingling and Denies weakness Psych Denies anxiety, Denies depression, Denies memory loss Endo Denies cold intolerance, Denies fatigue, Denies heat intolerance, Denies polydipsia and Denies polyuria Aller/Immun Denies wheezing Physical exam (Primary Care) Vital Signs: Last Vital Signs Temp 97.3 F 05/03/23 16:05 Pulse 72 05/03/23 16:05 Resp 13 05/03/23 16:05 BP 116/78 05/03/23 16:05 Pulse Ox 96 05/03/23 16:05 Oxygen Delivery Method Room Air 05/03/23 16:05 BMI result Body Mass Index 40.1 Tobacco/Smoking Status: Tobacco use Status Tobacco use date assessed 03/10/23 05/03/23 16:14 Patient Tobacco Use Status Current everyday Tobacco 05/03/23 16:14 Tobacco use type Cigarette 05/03/23 16:14 e-Cigarette/Vaping Use Never Used 05/03/23 16:14 Const Other: General: no acute distress and well developed Nutritional Appearance: well nourished Orientation/consciousness: patient oriented x3 HENMT Head: Yes normocephalic and Yes atraumatic Eyes General: appearance normal, both eyes and all related structures Pupils: Equal, round and reactive pupils present EOM: EOMs intact bilaterally Resp Effort & Inspection: normal respiratory effort Auscultation: clear to auscultation bilaterally Cardio Rate: regular rate Rhythm: regular rhythm Heart sounds: S1 normal heart sound present, S2 normal heart sound present, no gallops, no murmurs and no rubs GI Palpation (GI): No Abdominal aortic bruit present, Soft to palpation, nontender, No hepatosplenomegaly present and No Rebound tenderness present Auscultation: normal bowel sounds General: Yes no CVA tenderness Back/Spine/Pelvis Back: no CVA tenderness Cervical Spine: cervical ROM normal and No Cervical spine tenderness Thoracic/Lumbar Spine: thoraco-lumbar ROM normal, No pain with thoraco-lumbar ROM, No thoracic spinal tenderness and No lumbar spinal tenderness Extrem General: Yes normal to inspection, No edema and No calf tenderness Skin General: warm and dry. Normal skin color. Normal skin turgor Lesions: no lesions Rashes: Red, slightly raised rash noted to portions of both armpits and scalp, no drainage, skin it is intact Trauma: no lacerations or abrasions Wounds: no wounds Nails: normal Neuro General: patient oriented x3, gait normal and no focal neuro deficit Cranial nerves: Yes Equal, round and reactive pupils present Cognition (Neuro): normal cognition Gait exam (Neuro): Normal gait present Sensory Exam: No Sensory deficit (Neuro) Psych Appearance: grossly normal Affect: normal affect Attitude: cooperative Thought process: Normal thought process present Assessment and Plan Assessment & Plan (1) Rash: Code(s): R21 - Rash and other nonspecific skin eruption Plan: Reports persistent rash to her scalp and armpits. She notes that the rash is itchy. She was evaluated in the office on 03/09/2023 for irritation or her armpit and scalp. She was prescribed ketoconazole shampoo. She notes that she has been using the sample without improvement. Red, slightly raised rash noted to portions of both armpits and scalp, no drainage, skin it is intact. Likely fungal, although dermatitis as possible. May apply clotrimazole to the rash twice daily. Use hydrocortisone cream if no improvement with clotrimazole. Soak hair and apply Selsun Blue shampoo to the scalp 3 times a week, wash off completely after few minutes. May use here oral to moisturize the scalp. Return with worsening or new signs and symptoms. Verbalized understanding and agreed with treatment plan. Coding Level of Care Code Est Pt Level 3 (64182) Diagnoses Rash R21
== END 2023-05-03 16:50 | disposition home or self-care (01) ==
PROVIDERS: PCP Hospitalist; Visit Provider Nurse Practitioner Family
DX: R21 Rash and other nonspecific skin eruption (principal)
CPT/HCPCS: 99213

== ENCOUNTER 2023-05-04 13:13 | Outpatient (AMB) | payer OTHER, SELFPAY ==
--- NOTE | 2023-05-04 13:29 | A.SPINEOV_ITS ---
Intake Intake Visit Reasons: discuss 2nd sx Intake Note: Ms. Duenas is here today to discuss surgery. 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 This is a known problem. We decided to 1st address her low back pain with a L4-5 lumbar fusion to address does symptoms before we would discuss her neck pathology. The MRI of the neck shows degenerative disc disease C4-C5 C5-C6 and C6-C7 and to make the matters more complicated, she also has a grade 1-2 anterolisthesis of C7-T1. I obtained an x-ray today with sore Owen view which confirmed the C7-T1 anterolisthesis. We had an extensive discussion on how to treat her debilitating symptoms surgically. The options are to address the three-level degenerative disc disease or at the C7-T1 spondylolisthesis to the surgery, which would until a 4 level cervical fusion. The other option would be to address the anterolisthesis only in attempt to afford the extensive cervical fusion. I decided to offer her a C7-T1 anterior diskectomy fusion with plating to address the anterolisthesis C7-T1. If this does not alleviate her symptoms and then we have to extend the fusion to C4-C5. She is scheduled for 06/29/2023. She does not need new preoperative clearance as she recently underwent a lumbar fusion. I spent 35 minutes in this consult to review imaging and discussing plan of care. Ta Pineda MD, PhD Spine Fellowship Trained Neurosurgeon Director, [facility] (2) Degenerative cervical spinal stenosis: Code(s): M48.02 - Spinal stenosis, cervical region Orders: Orders XR cervical spine 3V Today M43.12 - Spondylolisthesis, cervical region, M48.02 - Spinal stenosis, cervical region Coding Level of Care Code Est Pt Level 4 (48215) Diagnoses Spondylolisthesis of cervical region M43.12 Degenerative cervical spinal stenosis M48.02
== END 2023-05-04 14:30 | disposition home or self-care (01) ==
PROVIDERS: PCP Hospitalist; Visit Provider Neurological Surgery
DX: M43.12 Spondylolisthesis, cervical region (principal); M48.02 Spinal stenosis, cervical region
CPT/HCPCS: 99214

== ENCOUNTER 2023-05-04 13:13 | Outpatient (REF) | payer OTHER, SELFPAY ==
--- NOTE | ~2023-05-04 | XR_ITS ---
EXAMINATION: XR CERVICAL SPINE CLINICAL INFORMATION: Cervical pain, spinal stenosis COMPARISON: None available. TECHNIQUE: 3 views of the cervical spine were obtained. FINDINGS: Examination is limited due to highly positioned shoulders. On L5 vertebral bodies well seen on lateral view. There is straightening of cervical lordosis with mild reversal of cervical lordosis. There is no fractures or subluxations seen. There is mild narrowing of C4-C5 and C5-C6 intervertebral disc spaces. Pedicles are preserved and there is mild changes of uncovertebral osteophytosis at the level of C5 and C6. Soft tissues unremarkable. XR/XR cervical spine 3V IMPRESSION: Multilevel degenerative changes as described
== END 2023-05-04 13:14 | disposition home or self-care (01) ==
LOC: HO.HOSX 13:13
PROVIDERS: PCP Hospitalist; Visit Provider Neurological Surgery
DX: M43.12 Spondylolisthesis, cervical region (principal); M48.02 Spinal stenosis, cervical region
CPT/HCPCS: 72040; 99212

== ENCOUNTER 2023-05-25 11:13 | Outpatient (AMB) | payer OTHER, SELFPAY ==
--- NOTE | 2023-05-25 11:16 | MHC.PC.OV ---
Vital Signs 05/25/23 11:19 Height 5 ft 2 in Weight 220 lb 8 oz BMI 40.3 BP 124/62 Blood Pressure Location Lt brachial Position Sitting Respiration 13 Pulse 98 Pulse Source Pulse Oximeter Temp 97.9 F Temp Source Oral Pulse Oximetry (%) 98 Oxygen Delivery Method Room Air Intake Visit Reasons: Transfer of Care Intake Note: Patient is here for transfer of care from Yamel Ann DNP to Kiara Winslow DNP. Patient's last physical was completed on 05/13/22 by Yamel Ann DNP. Patient's last labs were obtained on 02/02/23. Patient reports she has been unable to obtain her hydroxyzine 25mg at bedtime for insomnia due to the pharmacy sending a form to our office they have no received back. Upon further investigating the pharmacy sent a 90 day supply request per the patient's insurance. Patient is requesting for this to be completed today, if possible. Pest Control Technician Required: No Accompanied by: Self / Same As Patient Allergies prednisone Allergy (Verified 05/25/23 11:46) Unknown Medication List - Last Reconciled 05/25/23 by Kiara Winslow CNP bupropion HCl 300 mg PO DAILY 90 days calcitriol 0.25 mcg PO DAILY cetirizine (Zyrtec) 10 mg PO DAILY docusate sodium (Colace) 100 mg PO BID hydroxyzine HCl 25 mg PO BEDTIME PRN 30 days ketoconazole 1% (Nizoral A-D) 1 appl topical Q3D 15 days levothyroxine 137 mcg PO DAILY 30 days meloxicam 15 mg PO DAILY 30 days omeprazole 20 mg PO BID pregabalin 200 mg PO TID sertraline 100 mg PO DAILY 90 days sumatriptan succinate 100 mg PO DAILY PRN Tobacco use date assessed: 03/10/23 HPI HPI Comments History of Present Illness Details 57-year-old female presents for transfer of care. Her former PCP was CHONG who is no longer with the practice. She has past medical history significant for chronic cervical and lumbar spine disease, chronic headache, hypothyroidism, fibromyalgia, hyperlipidemia, obesity, GERD, vitamin-D deficiency, insomnia, anxiety, and depression. She admits to taking her medications as prescribed. She notes that she has not followed by a psychiatrist or therapist. Recent complete physical exam was on 05/13/2022. Recent blood work was on 02/02/2023; H&H were slightly low, 11.8/36.1. Recent TSH was in November 2022, normal. Recent vitamin-D level was in November 2022, low 23. She has not had her lipid levels checked in over a year. She notes that she was diagnosed with fibromyalgia by a neurologist a year ago. She has never been evaluated by a coil rewind machine operator. She is on pregabalin 200 mg 3 times daily for fibromyalgia. She is followed by [facility] neuro technology infusion specialist, Dr. Pineda. She notes that she is scheduled for a surgical procedure for her cervical spine next month. [facility] Medical History (Updated 05/25/23 @ 12:36 by Kiara Winslow CNP) Arthritis Back pain Thyroid disease GERD (gastroesophageal reflux disease) Depression Numbness Elevated cholesterol Fibromyalgia Chronic daily headache History of shingles Feeling grief Vitamin D deficiency Morbid obesity Surgical History History of back surgery Hx of neck surgery Hx of bariatric surgery History of carpal tunnel repair Hx of section Family History Other Mental health disorder Substance abuse Social History Household Members: Children Household Members Other:: son Housing: House Are you a primary medicare insurance specialist to a significant other at home: No Do you presently have visiting nurse or other home services: No Alcohol intake: never Patient Tobacco Use Status: Current everyday Tobacco user Tobacco use type: Cigarette Cigarette Packs Per Day: 1 Cigarettes Per Day: 20.0 Years Smoked: 42 e-Cigarette/Vaping Use: Never Used Substance Use Type: Marijuana service: No Current occupational status: disabled Current occupational exposures/hazards: No Cognitive needs: No Hearing needs: No Vision needs: Yes Questionnaire PHQ-9 Over the last 2 weeks, how often have you been bothered by any of the following problems? 1. Little interest or pleasure in doing things: several days 2. Feeling down, depressed, or hopeless: several days 3. Trouble falling or staying asleep, or sleeping too much: more than half the days 4. Feeling tired or having little energy: more than half the days 5. Poor appetite or overeating: more than half the days 6. Feeling bad about yourself - or that you are a failure or have let yourself or your family down: several days 7. Trouble concentrating on things, such as reading the newspaper or watching television: more than half the days 8. Moving or speaking so slowly that other people could have noticed. Or the opposite - being so fidgety or restless that you have been moving around a lot more than usual: not at all 9. Thoughts that you would be better off or of hurting yourself in some way: not at all Total score: 11 Depression Screening Interpretation: Positive Depression Screening Follow-up: Existing condition and In treatment Depression Screening Done: Yes 64580 - PHQ-9 Billing: Yes Source: Developed by Drs. Ab Rosales, Ruba Barnes, Kash Edwards and colleagues, with an educational kristyn from [employer]. Thrive Questionnaire Date Thrive assessed: 05/25/23 I am a: Patient What is your living situation today?: I have a steady place to live Within the past 12 months, did the food you bought not last and you didn't have the money to get more?: Sometimes True Within the past 12 months, did you worry whether your food would run out before you got money to buy more?: Sometimes True Do you have trouble paying for medicines?: No Do you have trouble getting transportation to medical appointments?: No Do you have trouble paying your heating and electricity bill?: Yes Do you have trouble taking care of your child, family member or friend?: No Do you have trouble with day-to-day activities such as bathing, preparing meals, shopping, managing finances, etc.?: No Are you currently unemployed and looking for a job?: No Are you interested in more education?: Yes Please select the resources that you would like help with: Daily support AUDIT C Alcohol Use Questionnaire (AUDIT-C) 1. How often do you have a drink containing alcohol?: Never 3. How often do you have six or more drinks on one occasion?: Never Total Score: 0 CARLY-7 AMB Questionnaire CARLY-7 Date CARLY - 7 assessed: 05/25/23 Feeling nervous, anxious, or on edge: 1 = Several days Not being able to stop or control worryin = Several days Worrying too much about different things: 1 = Several days Trouble relaxin = Several days Being so restless that it is hard to sit still: 1 = Several days Becoming easily annoyed or irritable: 2 = More than half the days Feeling afraid as if something awful might happen: 1 = Several days Total CARLY-7 score (0-4 normal; 5-9 mild; 10-14 moderate; 15-21 severe): 8 Source: Developed by Drs. Ab Rosales, Ruba Barnes, Kash Edwards and colleagues, with an educational kristyn from [employer]. CARLY-7 Assessment Billing CARLY-7 Assessment Tool: CARLY-7 Assessment 71428 Review of Systems Const Details: Const Denies chills, Denies fatigue, Denies fever(s), Reports headache(s) and Denies weakness ENT Denies dizziness, Reports headache(s), Reports neck pain Card Denies chest pain, Denies lightheadedness, Denies dyspnea and Denies other (Palpitations) Resp Denies cough, Denies dyspnea, Denies wheezing and Denies other ( shortness of breath) GI Denies abdominal pain, Denies melena, Denies hematochezia, Denies change in bowel habits, Denies dyspepsia and Denies nausea Denies hematuria and Denies dysuria Musc Denies abnormal gait, reports neck pain, reports low back pain Skin/Breast Denies rash, Denies unusual bruising and Denies wounds Neuro Denies abnormal gait, Denies dizziness, Reports headache(s), Denies memory loss, Denies numbness, Denies Sensory deficit (Neuro), Denies tingling and Denies weakness Psych Reports anxiety, Reports depression, Denies memory loss Endo Denies cold intolerance, Denies fatigue, Denies heat intolerance, Denies polydipsia and Denies polyuria Aller/Immun Denies wheezing Physical exam (Primary Care) Vital Signs: Last Vital Signs Temp 97.9 F 05/25/23 11:19 Pulse 98 05/25/23 11:19 Resp 13 05/25/23 11:19 BP 124/62 05/25/23 11:19 Pulse Ox 98 05/25/23 11:19 Oxygen Delivery Method Room Air 05/25/23 11:19 BMI result Body Mass Index 40.3 Tobacco/Smoking Status: Tobacco use Status Tobacco use date assessed 03/10/23 05/25/23 11:18 Patient Tobacco Use Status Current everyday Tobacco 05/25/23 11:18 Tobacco use type Cigarette 05/25/23 11:18 e-Cigarette/Vaping Use Never Used 05/25/23 11:18 PHQ-9: PHQ-9 Score PHQ-9: Total score 11 05/25/23 11:41 Depression Screening Interpretation: Positive Depression Screening Follow-up: Existing condition and In treatment Thrive Assessment: Date of Thrive Assessment Date Thrive assessed 05/25/23 05/25/23 11:39 Const Other: General: no acute distress and well developed Nutritional Appearance: well nourished Orientation/consciousness: patient oriented x3 HENMT Head: Yes normocephalic and Yes atraumatic Eyes General: appearance normal, both eyes and all related structures Pupils: Equal, round and reactive pupils present EOM: EOMs intact bilaterally Resp Effort & Inspection: normal respiratory effort Auscultation: clear to auscultation bilaterally Cardio Rate: regular rate Rhythm: regular rhythm Heart sounds: S1 normal heart sound present, S2 normal heart sound present, no gallops, no murmurs and no rubs GI Palpation (GI): No Abdominal aortic bruit present, Soft to palpation, nontender, No hepatosplenomegaly present and No Rebound tenderness present Auscultation: normal bowel sounds General: Yes no CVA tenderness Back/Spine/Pelvis Back: no CVA tenderness Cervical Spine: cervical ROM normal and Cervical spine tenderness Thoracic/Lumbar Spine: thoraco-lumbar ROM normal, No pain with thoraco-lumbar ROM, No thoracic spinal tenderness and lumbar spinal tenderness Extrem General: Yes normal to inspection, No edema and No calf tenderness Skin General: warm and dry. Normal skin color. Normal skin turgor Neuro General: patient oriented x3, gait normal and no focal neuro deficit Cranial nerves: Yes Equal, round and reactive pupils present Cognition (Neuro): normal cognition Gait exam (Neuro): Normal gait present Sensory Exam: No Sensory deficit (Neuro) Psych Appearance: grossly normal Affect: normal affect Attitude: cooperative Thought process: Normal thought process present Assessment and Plan Assessment & Plan (1) Spondylolisthesis of cervical region: Code(s): M43.12 - Spondylolisthesis, cervical region Plan: Reports chronic neck and low back pain Cervical and lumbar spine tenderness to palpation Meloxicam as prescribed Warm/cold compresses encouraged Continue to follow-up with technology infusion specialist as planned Return with worsening or new symptoms Verbalized understanding and agreed with treatment plan. (2) Degenerative cervical spinal stenosis: Code(s): M48.02 - Spinal stenosis, cervical region Plan: As above (3) Lumbar radiculopathy: Code(s): M54.16 - Radiculopathy, lumbar region Plan: As above (4) Hypothyroidism (acquired): Code(s): E03.9 - Hypothyroidism, unspecified Plan: Recent TSH was in November 2022, normal. Will recheck TSH level. Advised to get blood work done before her next visit. Follow-up in 1-2 months for complete physical exam and labs review. Return sooner with symptoms or concerns. Verbalized understanding and agreed with treatment plan. (5) High cholesterol: Code(s): E78.00 - Pure hypercholesterolemia, unspecified Plan: She has not had her lipid levels checked in over a year. Total cholesterol and LDL were elevated, 265 and 197 respectively. Triglycerides and HDL levels were normal. Will recheck lipid levels. Advised to fast for 10-12 hours (may drink water only) and get blood work done 2-3 days before her next visit Verbalized understanding and agreed with the plan. (6) Morbid obesity with BMI of 40.0-44.9, adult: Code(s): E66.01 - Morbid (severe) obesity due to excess calories; Z68.41 - Body mass index [BMI] 40.0-44.9, adult Plan: She weighs 220 lb, BMI is 40.3 Healthy diet and routine exercise encouraged Follow-up with symptoms or concerns. May refer to addictions recovery specialist/dietitian or weight management Verbalized understanding and agreed with the plan. (7) Vitamin D deficiency: Code(s): E55.9 - Vitamin D deficiency, unspecified Plan: Recent vitamin-D level was in November 2022, low 23. She is not currently taking vitamin D supplement. Will recheck vitamin-D level and make changes to her care plan as needed Encouraged to get blood work done before next visit Verbalized understanding and agreed with the plan. (8) Fibromyalgia: Code(s): M79.7 - Fibromyalgia Plan: She notes that she was diagnosed with fibromyalgia by a neurologist a year ago. She has never been evaluated by a coil rewind machine operator. She is on pregabalin 200 mg 3 times daily for fibromyalgia. Encouraged to continue current treatment regimen Referred to rheumatology Return with worsening or new symptoms Verbalized understanding and agreed with treatment plan. (9) Anemia: Code(s): D64.9 - Anemia, unspecified Plan: Recent H&H are slightly low, 11.8/36.1 Will check CBC and make changes to her care plan if warranted Advised to get blood work done before next visit Verbalized understanding and agreed with the plan. (10) Anxiety and depression: Code(s): F41.9 - Anxiety disorder, unspecified; F32.A - Depression, unspecified Plan: CARLY-7 in PHQ-9 scores revealed mild anxiety and moderate depression respectively Advised to continue to take bupropion, sertraline, and hydroxyzine as prescribed Routine exercise encouraged Declines referral to a therapist or psychiatrist Follow-up with worsening or new symptoms Verbalized understanding and agreed with treatment plan. (11) GERD (gastroesophageal reflux disease): Code(s): K21.9 - Gastro-esophageal reflux disease without esophagitis Plan: Stable Continue take omeprazole as prescribed Return with symptoms or concerns Verbalized understanding and agreed with treatment plan. (12) Chronic daily headache: Code(s): R51.9 - Headache, unspecified Plan: Reports chronic generalized headache Likely due to chronic cervical spine pain Sumatriptan as prescribed Follow-up with worsening or new symptoms Verbalized understanding and agreed with treatment plan. (13) Insomnia: Code(s): G47.00 - Insomnia, unspecified Plan: Reports history of poor sleep which responds well to hydroxyzine Continue with current treatment regimen Routine exercise encouraged Return with worsening or new symptoms Verbalized understanding and agreed with treatment plan. Orders: Orders Vitamin D 25-OH Total Today E55.9 - Vitamin D deficiency, unspecified Lipid Panel Today E78.00 - Pure hypercholesterolemia, unspecified TSH reflex Free T4 Today E03.9 - Hypothyroidism, unspecified Complete Blood Count no Diff Today D64.9 - Anemia, unspecified Referrals Rheumatology Referral M79.7 - Fibromyalgia Medications: Changed From hydroxyzine HCl 25 mg PO BEDTIME 30 days PRN 30 tabs 0RF Insomnia To hydroxyzine HCl 25 mg PO BEDTIME 90 days PRN 90 tabs 1RF Insomnia Coding Level of Care Code Est Pt Level 4 (15360) Diagnoses Spondylolisthesis of cervical region M43.12 Degenerative cervical spinal stenosis M48.02 Lumbar radiculopathy M54.16 Hypothyroidism (acquired) E03.9 High cholesterol E78.00 Morbid obesity with BMI of 40.0-44.9, adult E66.01; Z68.41 Vitamin D deficiency E55.9 Fibromyalgia M79.7 Anemia D64.9 Anxiety and depression F41.9; F32.A GERD (gastroesophageal reflux disease) K21.9 Chronic daily headache R51.9 Insomnia G47.00 Additional Codes CARLY-7 Assessment Billing - CARLY-7 Assessment Tool: CARLY-7 Assessment 22522 ([id number])
[2023-05-25 11:19] VITALS: BP 124/62; PULSE 98; RESP 13; TEMP 36.6; O2SAT 98; BMI 40.3
== END 2023-05-25 12:12 | disposition home or self-care (01) ==
PROVIDERS: PCP Hospitalist; Visit Provider Nurse Practitioner Family
DX: F41.9 Anxiety disorder, unspecified (principal)
CPT/HCPCS: 96127; 99214

== ENCOUNTER 2023-06-29 08:13 | Day surgery (SDC) | payer OTHER, SELFPAY ==
[2023-06-16 08:40] VITALS: BMI 39.3
--- NOTE | 2023-06-28 08:51 | HO.ANESPROP2 ---
Documented by User: Quin Adrian NP 06/28/23 08:53 HPI - Anesthesia Eval Consult details Narrative: 57yo F for C1 - T1 Ant Cerv Discectomy w/ fusion s/p OLIF 02/16/23 with GA-ETT 7 No recent illness No CP/SOB with housework, groceries (limited to back pain) Smoker GERD controlled with ppi Hypothyroid with nml TSH 11/2022 PMF Active Problems Active Problems: All Active Problems (Updated 05/25/23 @ 12:36 by Kiara Winslow CNP) Insomnia (Acute) Morbid obesity with BMI of 40.0-44.9, adult (Acute) Anxiety and depression (Acute) Anemia (Acute) Spondylolisthesis of cervical region (Acute) Degenerative cervical spinal stenosis (Acute) Lumbar radiculopathy (Acute) Rash (Acute) Rib pain (Acute) Fall (Acute) Post herpetic neuralgia (Acute) Numbness in both hands (Acute) Spondylolisthesis, lumbar region (Acute) Subluxation of L4-L5 lumbar vertebra (Acute) Lumbar back pain with radiculopathy affecting left lower extremity (Acute) Obesity (BMI 30-39.9) (Acute) High cholesterol (Acute) Hypothyroidism (acquired) (Acute) Normal physical exam (Acute) GERD (gastroesophageal reflux disease) (Acute) Fibromyalgia (Acute) Chronic daily headache (Acute) History of shingles (Acute) Morbid obesity (Acute) Feeling grief (Acute) Vitamin D deficiency (Acute) Past Medical History Medical History Arthritis Back pain Thyroid disease GERD (gastroesophageal reflux disease) Depression Numbness Elevated cholesterol Fibromyalgia Chronic daily headache History of shingles Feeling grief Vitamin D deficiency Morbid obesity Family History Family History Other Mental health disorder Substance abuse Family history of problems with anesthesia: No Surgical History Surgical History History of back surgery Hx of neck surgery Hx of bariatric surgery History of carpal tunnel repair Hx of section History of Problems with Anesthesia: No Social History Social History Household Members: Children Household Members Other:: son Housing: House Are you a primary chronic care nurse to a significant other at home: No Do you presently have visiting nurse or other home services: 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 If so, by whom?: No Are you DNR?: No Advance Directives: No Advance Directives Information Provided: Yes Advance Directives on File: No Recently lost weight without trying: No Eating poorly because of decreased appetite: No Nutrition Risks: No Nutritional Risk Patient : No : No Poor oral hygiene: No service: No Current occupational status: disabled Current occupational exposures/hazards: No Cognitive needs: No Hearing needs: No Vision needs: Yes Meds Allergies Allergy/AdvReac Type Severity Reaction Status Date / Time prednisone Allergy Unknown Verified 05/25/23 11:46 Home Medications Medication Instructions Recorded Confirmed Last Taken Type cetirizine 10 mg tablet (Zyrtec) 10 mg PO DAILY 02/02/23 06/16/23 02/16/23 History omeprazole 20 mg tablet,delayed 20 mg PO BID 02/02/23 06/16/23 06/29/23 History release Exam Height,Weight and Vital Signs: Height 5 ft 2 in Weight 97.522 kg Pertinent Lab Results Pertinent Lab Results: Lab Results 02/02/23 02/02/23 Range/Units 13:18 13:18 WBC 6.6 (4.8-10.8) X10*3/uL RBC 4.39 (4.20-5.50) X10*6/uL Hgb 11.8 L (12.0-16.0) g/dl Hct 36.1 L (37.0-47.0) % MCV 82.2 (80.0-98.0) fL MCH 26.9 L (27.0-33.0) pg MCHC 32.7 (31.0-35.0) g/dl RDW 17.4 H (11.0-16.0) % Plt Count 261 (160-400) X10*3/uL MPV 10.9 (9.4-12.3) fL Absolute Nucleated RBC 0.000 (0.0-0.012) X10*3/uL Nucleated RBC % (auto) 0.0 (0.0-0.2) /100WBC Sodium 138 (135-145) mmol/L Potassium 4.3 (3.3-5.1) mmol/L Chloride 105 (96-108) mmol/L Carbon Dioxide 26 (22-29) mmol/L Anion Gap 11 L (12-20) BUN 8 L (9-16) mg/dL Creatinine 0.77 (0.5-1.4) mg/dL Estim Creat Clear Calc 87.5 Estimated GFR > 60 Random Glucose 84 (60-115) mg/dL Calcium 9.0 (8.4-10.2) mg/dL Narrative Narrative: EKG 01/2023 Vent. Rate : 057 BPM ? ? Atrial Rate : 057 BPM ?? P-R Int : 156 ms? QRS Dur : 076 ms ? ? QT Int : 422 ms ? ? ? P-R-T Axes : 058 054 053 degrees ?? QTc Int : 410 ms ? Sinus bradycardia Otherwise normal ECG No previous ECGs available Assessment and Plan Assessment Anesthesia Assessment: Chart Reviewed Final Anesthetic Review Family History of Problems with Anesthesia: No History of Problems with Anesthesia: No Documented by User: Lakhwinder Cruz MD 06/29/23 11:39 [facility] Past Medical History Medical History Arthritis Back pain Thyroid disease GERD (gastroesophageal reflux disease) Depression Numbness Elevated cholesterol Fibromyalgia Chronic daily headache History of shingles Feeling grief Vitamin D deficiency Morbid obesity Family History Family History Other Mental health disorder Substance abuse Surgical History Surgical History History of back surgery Hx of neck surgery Hx of bariatric surgery History of carpal tunnel repair Hx of section Social History Social History Household Members: Children Household Members Other:: son Housing: House Are you a primary chronic care nurse to a significant other at home: No Do you presently have visiting nurse or other home services: 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 If so, by whom?: No Are you DNR?: No Advance Directives: No Advance Directives Information Provided: Yes Advance Directives on File: No Recently lost weight without trying: No Eating poorly because of decreased appetite: No Nutrition Risks: No Nutritional Risk Patient : No : No Poor oral hygiene: No service: No Current occupational status: disabled Current occupational exposures/hazards: No Cognitive needs: No Hearing needs: No Vision needs: Yes Meds Allergies Allergy/AdvReac Type Severity Reaction Status Date / Time prednisone Allergy Unknown Verified 05/25/23 11:46 Home Medications Medication Instructions Recorded Confirmed Last Taken Type cetirizine 10 mg tablet (Zyrtec) 10 mg PO DAILY 02/02/23 06/16/23 02/16/23 History omeprazole 20 mg tablet,delayed 20 mg PO BID 02/02/23 06/16/23 06/29/23 History release Exam Airway Mallampati Class: II TM Dist: >3cm Neck ROM: Full Loose/Missing/Broken Teeth: Yes (Poor dentition, loose front teeth) Assessment and Plan Assessment Anesthesia Assessment: Anesthesia Plan Discussed Final Anesthetic Review NPO: Yes ASA Class: III Final Preanesthetic Review: No Changes in Pt Med Stat, Meds/Allgs Chart Reviewed, Consent Obtained/Reviewed and Anes Risks/Benef Reviewed Patient Risk: Intermediate Procedure Risk: Intermediate Anesthetic Plan Anesthetic Plan: GA Disposition: Standard PACU
[2023-06-29] VITALS (7 sets, daily range): BP systolic 125–145; BP diastolic 53–92; PULSE 62–84; RESP 13–20; TEMP 36.2–36.8; O2SAT 91–97; BMI 39.3
--- NOTE | ~2023-06-29 | FL_ITS ---
EXAMINATION: XR FLUOROSCOPY WITH IMAGES CLINICAL INFORMATION: C7-T1 anterior cervical discectomy with fusion. COMPARISON: None available. TECHNIQUE: Fluoroscopy Supervised By: Dr. Ta Pineda. Fluoroscopy Time: 0.2 minutes. Cumulative Dose: 6.76 mGy. DAP: 0.878 Gycm2. Images: 5. FINDINGS: Fluoroscopy guidance provided for ACDF of the lower cervical spine. FL/FL guidance in OR IMPRESSION: Fluoroscopy guidance for cervical spine surgery
--- NOTE | 2023-06-29 07:22 | MHC.SHP ---
Pre-Procedural Eval Section A Date of Service: 06/29/23 Section B Chief Complaint: Spondylolisthesis, cervical region Allergies: Allergies Allergy/AdvReac Type Severity Reaction Status Date / Time prednisone Allergy Unknown Verified 05/25/23 11:46 Review of Systems Sugical H&P ROS: Negative: Constitution, Cardiovascular, Respiratory, Neurological, Psychiatric, Hem-Onc, Allergic/Immunologic, Gastrointestinal, Genitourinary, Musculoskeletal, Integumentary, Endocrine and Eyes/Ears/Nose/Throat Exam Surgical H&P Exam: Not Evaluated: HEENT, Not Evaluated: Heart, Not Evaluated: Lungs, Not Evaluated: Extremities, Not Evaluated: Abdomen, Not Evaluated: Skin and Not Evaluated: Neurological Plan Diagnosis/Plan: Unchanged I have reviewed the history and physical and performed a pertinent physical examination on my patient. No changes have occurred unless specified. Plan remains the same, C7-T1 ACDF. Time Spent With Patient Time: Total time managing care of this patient today _10___ minutes.
[2023-06-29] MEDS: methocarbamoL 750 MG TABLET PO (08:39)
[2023-06-29] MEDS: Gabapentin 300 MG CAPSULE PO (08:39)
[2023-06-29] MEDS: Lactated Ringers 1,000 ML 100 ML IVCONT (09:02)
--- NOTE | 2023-06-29 12:15 | W.PM.OPN ---
Operative Note Operative Note Date of Service: 06/29/23 Narrative: Preoperative Diagnosis: Chronic neck pain; anterolisthesis C7-T1 Procedure: C7-T1 Anterior discectomy, arthrodesis and implantation cage ; C7-T1 anterior instrumentation ; local autograft and allograft; microscope Informed Consent was obtained for this operation. I have explained the nature, purpose and benefits of the operation. I have discussed the risks and benefit of the operation including possible complications or adverse events with patient/family. Alternative(s) were discussed with the patient with their relative benefits and risks as well as the consequences of not accepting the operation were included in obtaining consent. Surgeon: BRENDAN BRENNER MD, PHD Procedure Assisted By: JOHN Harris Description of Procedure: This 57-year-old female suffer from chronic neck pain. An MRI shows multilevel degenerative disc disease and a C7-T1 anterolisthesis. We decided to 1st address the anterolisthesis to see if this is the origin of her pain. Additional cervical fusions may be required. The procedure complications were explained. The patient was consented. The patient was brought to the operating room and endotracheally intubated. The patient was put in supine position with slight extension of the neck. Prep and drape was done followed by timeout. A mid cervical incision was made followed by opening of the platysma. The prevertebral fascia was reached following the natural planes while the physician health care assistant provided manual retraction. The prevertebral fascia was opened to expose the disc space. A spinal needle was placed in the disk space to confirm the correct level with xray. The longus colli muscles were released bilaterally and a self retaining retractor was inserted. Two [place] pins were placed in the C7 and T1 vertebral bodies and distraction was give over the interspace. An initial diskectomy was done but did appear to be the inferior part of body. In other words this patient has osteoporosis. I was able to find the disc space distally from the original entrance and completed a diskectomy. The microscope was brought into further complete the diskectomy. The posterior ligament was opened and resected to expose the underlying dura. The endplate of T1 was prepared and eventually a 10 mm cage filled with a combination of allograft and allograft was inserted into the disc space under fluoroscopic guidance. 2x12 mm screws were inserted to secure the cage. Finally a 14 mm plate was locked down with 4 x 14 mm screws as anterior instrumentation. Final x-rays in AP and lateral projection showed a satisfactory position of the implant and anterior instrumentation. The physician health care assistant took over. The [place] pin was removed. Hemostasis was done. He closed the incision in 2 layers with a 3-0 Vicryl. Steri-Strips used to approximate incision. An OpSite with Tegaderm was used to cover the incision. All sponge and needle counts were correct. Patient was extubated and transported in stable is to recovery room. Anesthesia: General Estimated Blood Loss (ml): Minimal Duration of Surgery: 2 hours Postoperative Plan: Discharge home Complications: None
--- NOTE | 2023-06-29 12:22 | PM.DS ---
DS: Providers Provider Date of Service: 06/29/23 Primary care physician: Kiara Winslow CNP DS: Summary Time Attestation Discharge coordination time: Less than 30 minutes Quality: Safe Use of Opioids Does Pt have an Active Cancer Diagnosis on the Problem List?: No Quality: Stroke Does the patient have a stroke diagnosis?: No Physical Exam Vital Signs: Vital Signs: Last Vital Signs Temp 97.1 F 06/29/23 08:53 Pulse 62 06/29/23 08:53 Resp 18 06/29/23 08:53 BP 137/53 L 06/29/23 08:53 Pulse Ox 97 06/29/23 08:53 O2 Del Method Room Air 06/29/23 08:53 BMI result Body Mass Index 39.3 DS: Data Data Completed and Pending Completed studies during hospitalization [Text1]: Procedures Fusion of Lumbar Vertebral Joint with Interbody Fusion Device, Anterior Approach, Anterior Column, Open Approach (02/16/23) Insertion of Interspinous Process Spinal Stabilization Device into Lumbar Vertebral Joint, Open Approach (02/16/23) Discharge Plan Discharge Patient Disposition: Home, Self-Care Referrals: Kiara Winslow CNP [Primary Care Provider] - 1 Week Discharge Medications: New oxycodone 5 mg tablet 5 mg PO Q6H PRN (Reason: severe pain (scale score 7-10)) Qty: 30 0RF Rx Instructions: Partial Fill upon patient request. Continued sertraline 100 mg tablet 100 mg PO DAILY 90 Days Qty: 90 3RF bupropion HCl 300 mg tablet extended release 24 hr 300 mg PO DAILY 90 Days Qty: 90 2RF calcitriol 0.25 mcg capsule 0.25 mcg PO DAILY Qty: 30 5RF levothyroxine 137 mcg tablet 137 mcg PO DAILY 30 Days Qty: 30 1RF meloxicam 15 mg tablet 15 mg PO DAILY 30 Days Qty: 30 2RF pregabalin 200 mg capsule 200 mg PO TID Qty: 90 0RF omeprazole 20 mg Tablet,Delayed Release (Dr/Ec) 20 mg PO BID cetirizine [Zyrtec] 10 mg Tablet 10 mg PO DAILY hydroxyzine HCl 25 mg tablet 25 mg PO BEDTIME PRN (Reason: Insomnia) 90 Days Qty: 90 1RF Discharge Orders: Discharge Order (Routine); Ordered 06/29/23 Ordered By: Timothy Pitrat Diet: Advance to usual diet Activity on Discharge: As tolerated Activity Restrictions/Additional Instructions: After your spinal surgery we ask you to observe the following restrictions/guidelines: Activity: It is normal to feel some discomfort as you increase your activity, but that will improve with time. We ask you avoid heavy lifting or acitivities that cause pain. As a general rule, 8lbs is a safe limit for lifting right after surgery. Walk as much as you feel comfortable but not to exhaustion. You will feel extra tired the first few days after surgery. Stay well hydrated. It is OK to walk up and down stairs You may return to driving when you are off narcotics (such as vicodin, oxycodone, dilaudid, etc), and you are back to normal functional capacity. If you have any concerns please check with office before driving. Return to work is specific to each patient and each surgery, so please speak with your doctor/PA at first follow up. Please bring paperwork such as FMLA at that time if you need it filled out. Medications: We will give you a short supply of narcotics after surgery (usually one weeks worth). If you need more please call the office but do not use more than prescribed. You will need to give our office 48 hours notice if you need narcotics refilled and we do not fill narcotics on weekends or evenings. If you are on a narcotic, it is a good idea to take a stool softener such as colace or senna to avoid constipation If you take blood thinner such as aspirin, Plavix, Coumadin, Effient, Eliquis etc for conditions such as Afib, DVT, Pulmonary embolus, coronary disease, stents etc please speak with your surgeon about specific details as to when you can resume these medications. You can resume NSAIDs on post op day 1 (eg: Motrin, Naproxen, etc). Follow up: Please call the office, , after surgery to arrange a 3 week follow up for wound check. Wound Care: You may remove your dressing on the first day after surgery. You may leave open to air. Please do not remove the steri strips underneath. they will fall off on their own in one week. IT IS NORMAL FOR THE WOUND TO OOZE OR BE BLOODY FOR A FEW DAYS AFTER SURGERY. IF THIS HAPPENS JUST PLACE NEW DRESSING OVER IT TO AVOID STAINING CLOTHES. You may shower on post op day # 1 We ask that you do not let the water soak the wound. If it does get wet, just towel dry lightly. Please do not scrub your incision or place any type of chemical/ointment on the wound. No tub baths, pools or jacuzzis for one month. If you have any leaking or redness from your wound, or fevers, please call the office.
[2023-06-29] MEDS: oxyCODONE HCl Immed Release 5 MG TABLET PO (12:29)
== END 2023-06-29 14:12 | disposition home or self-care (01) ==
PROVIDERS: PCP Nurse Practitioner Family; Visit Provider Neurological Surgery
PROC: (CPT 22551; principal; 2023-06-29 11:40)
DX: M43.12 Spondylolisthesis, cervical region (principal); M48.02 Spinal stenosis, cervical region; G89.29 Other chronic pain; M50.321 Other cervical disc degeneration at C4-C5 level; M50.322 Other cervical disc degeneration at C5-C6 level; M50.323 Other cervical disc degeneration at C6-C7 level; Z88.8 Allergy status to other drugs, medicaments and biological substances
CPT/HCPCS: 22551; 22853; 20931; 20936; 22845; C1713; J0131; J0690; J1100; J1170; J2405; J2704; J3010; L8699

== ENCOUNTER → 2023-06-29 08:13 | Outpatient (BNV) | payer OTHER, SELFPAY | PROVIDERS: PCP Nurse Practitioner Family; Visit Provider Neurological Surgery | DX: M43.12 Spondylolisthesis, cervical region (principal) | CPT/HCPCS: 20936; 22551; 22845; 22853; 99499 ==

== ENCOUNTER 2023-07-20 14:45 | Outpatient (AMB) | payer OTHER, SELFPAY ==
--- NOTE | 2023-07-20 15:01 | MHC.OFFVIS ---
Intake Intake Visit Reasons: 1st post op Intake Note: pt here for 1st post op Allergies prednisone Allergy (Verified 05/25/23 11:46) Unknown [facility] Medical History Arthritis Back pain Thyroid disease GERD (gastroesophageal reflux disease) Depression Numbness Elevated cholesterol Fibromyalgia Chronic daily headache History of shingles Feeling grief Vitamin D deficiency Morbid obesity Surgical History (Updated 07/20/23 @ 15:14 by JOHN Harris) History of back surgery Hx of neck surgery Hx of bariatric surgery History of carpal tunnel repair Hx of section Family History Other Mental health disorder Substance abuse Social History Household Members: Children Household Members Other:: son Housing: House Are you a primary care team coordinator scheduler to a significant other at home: No 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 She reports that she is satisfied with her surgery, however continues to have moderate pain in her bilateral shoulders and posterior neck. She reports that she has been utilizing her oxycodone sparingly since her surgery, and does not want to continue taking it if she does not have to. We discussed other alternatives for pain/symptom control postoperatively. She would like to attempt utilizing a nonnarcotic muscle relaxer. I will prescribe a short course of methocarbamol for her to utilize when she has flare-ups of pain. She was encouraged to continue her remaining active and we extensively discussed postoperative healing course, including the waxing/waning nature of inflammation. No neurological deficits. Patient is able to ambulate well, rises from a seated position without difficulty. Incision sites are closed, well healing, with no signs of drainage. We will follow-up with the patient in 6 weeks for her 2nd postoperative visit. At that time we will get x-rays to review with the patient. Timothy Pineda MD,PhD [facility] Medications: New methocarbamol 750 mg PO Q8H 21 tabs 0RF moderate pain Coding Level of Care Code Global (49641) Diagnoses H/O cervical spine surgery Z98.890
== END 2023-07-20 15:14 | disposition home or self-care (01) ==
PROVIDERS: PCP Nurse Practitioner Family; Visit Provider Physician Assistant
DX: Z98.890 Other specified postprocedural states (principal)
CPT/HCPCS: 99024

== ENCOUNTER → 2023-07-20 14:45 | Outpatient (BNVA) | payer OTHER, SELFPAY | PROVIDERS: PCP Nurse Practitioner Family; Visit Provider Physician Assistant | DX: Z48.89 Encounter for other specified surgical aftercare (principal) | CPT/HCPCS: 99212 ==

== ENCOUNTER 2023-08-12 10:46 | Outpatient (AMB) | payer OTHER, SELFPAY ==
--- NOTE | 2023-08-12 11:05 | MHC.OFFVIS ---
Intake Vital Signs 08/12/23 11:06 Height 5 ft 2 in Weight 219 lb 9.286 oz BMI 40.2 BP 102/68 Blood Pressure Location Rt brachial Position Sitting Pulse 67 Pulse Source Pulse Oximeter Temp 97.0 F Temp Source Skin Pulse Oximetry (%) 97 Oxygen Delivery Method Room Air Intake Visit Reasons: Fibromyalgia Intake Note: New patient presents today for FM consult. 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 Accompanied by: Self / Same As Patient Allergies prednisone Allergy (Verified 08/12/23 11:14) Unknown Medication List - Last Reconciled 08/12/23 by Kiara Russell MD bupropion HCl 300 mg PO DAILY 90 days calcitriol 0.25 mcg PO DAILY cetirizine (Zyrtec) 10 mg PO DAILY hydroxyzine HCl 25 mg PO BEDTIME PRN 90 days levothyroxine 137 mcg PO DAILY 30 days meloxicam 15 mg PO DAILY 30 days methocarbamol 750 mg PO Q8H omeprazole 20 mg PO BID pregabalin 200 mg PO TID rosuvastatin 20 mg PO BEDTIME sertraline 100 mg PO DAILY 90 days HPI HPI Comments History of Present Illness Details This is a 57-year-old female who presents for evaluation of fibromyalgia. She states that she has been diagnosed with fibromyalgia for more than 5 years. She was being treated by a neurologist. She states that she had numerous tests done and they were negative. She states that she was on gabapentin 900 mg 3 times a day for some time which was changed to Lyrica 200 mg Twice daily. She not tell whether the Lyrica is helping but when she misses a dose she does feel worsening pain. She mentioned that she did aquatherapy in the past for COVID and it did help while she was doing it but did not help afterwards. She has history of depression and over the last 5 years she has had significant grief with the of her in 2020, her father, her best friend and her dog past 2 weeks ago. She continues to complain of diffuse joint pain. Recently her right ring finger has been getting stuck, about twice a day. She has to get it unstuck with the other hand. [facility] Medical History Arthritis Back pain Thyroid disease GERD (gastroesophageal reflux disease) Depression Numbness Elevated cholesterol Fibromyalgia Chronic daily headache History of shingles Feeling grief Vitamin D deficiency Morbid obesity Surgical History History of back surgery Hx of neck surgery Hx of bariatric surgery History of carpal tunnel repair Hx of section Family History Mother Bone cancer Father Arthralgia Other Mental health disorder Substance abuse Social History Household Members: Children Household Members Other:: son Housing: House Are you a primary healthcare representative to a significant other at home: No 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) Alcohol intake: never Patient Tobacco Use Status: Current everyday Tobacco user Tobacco use type: Cigarette Cigarette Packs Per Day: 1 Cigarettes Per Day: 20.0 Years Smoked: 42 e-Cigarette/Vaping Use: Never Used Substance Use Type: Marijuana service: No Current occupational status: disabled Current occupational exposures/hazards: No Cognitive needs: No Hearing needs: No Vision needs: Yes Female Reproductive History Menstrual Total pregnancies: 3 Number of Living Children: 2 Ab spontaneous: 1 Review of Systems Const Reports fatigue, Reports headache(s) and Reports weakness Eyes Reports blurry vision ENT Reports dry mouth, Reports headache(s) and Reports neck pain Musc Reports back pain, Reports myalgias, Reports arthralgias, Reports limited range of motion, Reports neck pain and Reports stiffness Neuro Reports headache(s), Reports memory loss and Reports weakness Psych Reports anxiety, Reports depression and Reports memory loss Endo Reports fatigue Physical Exam Vital Signs: Last Vital Signs Temp 97.0 F 08/12/23 11:06 Pulse 67 08/12/23 11:06 BP 102/68 08/12/23 11:06 Pulse Ox 97 08/12/23 11:06 Oxygen Delivery Method Room Air 08/12/23 11:06 BMI result Body Mass Index 40.2 Const General: cooperative, healthy appearing and comfortable Nutritional Appearance: obese morbidly obese Orientation/consciousness: patient oriented x3 Limitations: no limitations HEENT Head: Yes normocephalic and Yes atraumatic Mouth: moist mucous membranes Resp Effort & Inspection: normal respiratory effort and able to speak in complete sentences Skin General skin exam: no rashes or lesions noted Neuro General: patient oriented x3 Extrem Other: Normal range of motion of her wrists, hands, elbows, shoulders without pain Multiple fibromyalgia tender points No active synovitis Mildly tender nodule of the right 4th flexor tendon with some triggering Psych Other: Depressed affect. Became tearful Office Procedures Tendon Injection Tendon Injection Details: Patient's consent. The right palm was prepped with ChloraPrep and alcohol. Under a topical ethyl chloride spray the [4th] flexor tendon sheath was injected with 20 mg of triamcinolone and 0.1 cc of 1% lidocaine. The patient tolerated the procedure without any acute adverse effects. [id number] Tendon Sheath Injection All charges added?: Procedure code (CPT) selection complete Assessment & Plan Assessment & Plan (1) Fibromyalgia: Code(s): M79.7 - Fibromyalgia Plan: 57-year-old female with fibromyalgia presents for fibromyalgia evaluation Do not see any signs of an autoimmune rheumatic disease. Discussed management of fibromyalgia with patient. Is a noninflammatory, non-autoimmune central afferent processing disorder leading to a diffuse pain syndrome. I suggested that patient try to address her underlying psychiatric issues, anxiety/depression/grief. I suggested evaluation by a therapist and/or a psychiatrist. Try to follow sleep hygiene practices. Discuss a referral for a sleep study by her PCP to rule out obstructive sleep apnea. Patient would benefit from increased physical activity, either through formal physical therapy or by joining a gym. Advised patient that she should start activity slowly and increase as tolerated. Consider low-impact exercises such as walking, swimming, aqua therapy stretching, yoga. Patient had done aquatherapy in the past and it was helpful. She is currently on Lyrica 200 mg Twice daily. She feels much worse when she misses a dose. She can continue with that. Follow-up with PCP (2) Trigger finger of right hand: Code(s): M65.30 - Trigger finger, unspecified finger Qualifiers: Trigger finger location: ring finger Qualified Code(s): M65.341 - Trigger finger, right ring finger Plan: With patient's consent, right ring trigger finger was injected with Kenalog today Plan I spent 36 minutes reviewing patient's chart, evaluating patient, counseling patient and documenting in the chart Orders: Orders AMB Injection-Tendon Today M65.30 - Trigger finger, unspecified finger Coding Level of Care Code New Pt Level 3 (36430) Diagnoses Fibromyalgia M79.7 Trigger ring finger of right hand M65.341 Trigger finger location: ring finger CPT Codes Tendon Injection - Tendon Injection 1: [id number] Tendon Sheath Injection ([id number])
[2023-08-12 11:06] VITALS: BP 102/68; PULSE 67; TEMP 36.1; O2SAT 97; BMI 40.2
== END 2023-08-12 11:53 | disposition home or self-care (01) ==
PROVIDERS: PCP Nurse Practitioner Family; Visit Provider Student in an Organized Health Care Education/Training Program
DX: M79.7 Fibromyalgia (principal); M65.341 Trigger finger, right ring finger
CPT/HCPCS: 20550; 99204

== ENCOUNTER → 2023-08-12 10:46 | Outpatient (BNVA) | payer OTHER, SELFPAY | PROVIDERS: PCP Nurse Practitioner Family; Visit Provider Student in an Organized Health Care Education/Training Program | DX: M65.341 Trigger finger, right ring finger (principal); M79.7 Fibromyalgia | CPT/HCPCS: 20550; 99202 ==

== ENCOUNTER 2023-09-03 13:49 | Outpatient (AMB) | payer OTHER, SELFPAY ==
--- NOTE | 2023-09-03 14:28 | HO.SPINEOV ---
Intake Intake Visit Reasons: 2nd post op with xrays Intake Note: Ms. Duenas is here today for her 2nd post-op visit. 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 She reports that she is satisfied with her surgery and she feels as though the bulk of her symptoms have resolved. She states that she no longer needs to take medication to help her manage the pain or discomfort. She states she has no issues throughout the day unless she ?pushes herself? which can cause some discomfort which resolves by the morning. She did report having some pain in her low back which has been constant since before the surgery. She is hoping that this resolves as she continues to heal. She is encouraged to make a follow-up appointment with our office in the next month or so she finds her back pain is persistent and does not resolve. I discussed with her how this likely does not have anything to do with the cervical spine surgery. I reviewed her x-rays that we had completed today, which shows stable placement of her instrumentation and no changes from fluoroscopy. No new neurological deficits. Patient is able to ambulate well, rises from a seated position without difficulty. Incision sites are closed, well healing, with no signs of drainage. There is no need for continued routine follow-up with Radha, she may follow-up as needed. Timothy Pineda MD,PhD [facility] Orders: Orders XR lumbar spine 4V min Today XR cervical spine 4V Today Coding Level of Care Code Global (02037) Diagnoses H/O cervical spine surgery Z98.890
== END 2023-09-03 14:54 | disposition home or self-care (01) ==
PROVIDERS: PCP Nurse Practitioner Family; Visit Provider Physician Assistant
DX: Z98.890 Other specified postprocedural states (principal)
CPT/HCPCS: 99024

== ENCOUNTER 2023-09-03 13:49 | Outpatient (REF) | payer OTHER, SELFPAY ==
--- NOTE | ~2023-09-03 | XR_ITS ---
EXAMINATION: XR CERVICAL SPINE CLINICAL INFORMATION: Pain, fluoroscopy 06/29/2023 for C7-T1 anterior discectomy with fusion. COMPARISON: Cervical spine radiographs of 05/04/2023, fluoroscopy in OR radiographs of 06/29/2023. TECHNIQUE: 5 views of the cervical spine inclusive of flexion and extension views. FINDINGS: Mild anterolisthesis of C2 on C3, and C3 on C4 with flexion which decreases with extension. Visualization of C5-C6-C7 levels severely limited due to overlying bony and soft tissues. Advanced degenerative changes with loss of disc space height at C4-C5, C5-C6 and C6-C7. Status post ACDF at C7-T1, although hardware is very difficult to visualize due to overlying bone and soft tissues. Degenerative changes in the minimally imaged upper thoracic spine. XR/XR cervical spine 4V IMPRESSION: 1. Status post ACDF at C7-T1, although hardware is very difficult to visualize due to overlying bone and soft tissues. 2. Advanced degenerative changes with loss of disc space height at C4-C5, C5-C6 and C6-C7.
== END 2023-09-03 13:50 | disposition home or self-care (01) ==
LOC: HO.HOSX 13:49
PROVIDERS: Visit Provider Physician Assistant
DX: Z47.89 Encounter for other orthopedic aftercare (principal); Z98.890 Other specified postprocedural states
CPT/HCPCS: 72050; 99212

== ENCOUNTER 2023-09-09 07:35 | Outpatient (REF) | payer OTHER, SELFPAY ==
[2023-09-09 11:34] LABS: Hematocrit 34.7 % (37.0-47.0); Hemoglobin 11.2 g/dl (12.0-16.0); Mean Corpuscular HGB Conc 32.3 g/dl (31.0-35.0); Mean Corpuscular Hemoglobin 24.8 pg (27.0-33.0); Mean Corpuscular Volume 76.8 fL (80.0-98.0); Mean Platelet Volume 10.7 fL (9.4-12.3); Platelet Count 268 X10*3/uL (160-400); Red Blood Count 4.52 X10*6/uL (4.20-5.50); Red Cell Distribution Width 18.3 % (11.0-16.0)
[2023-09-09 12:00] LABS: Cholesterol 164 mg/dL (<200); HDL Cholesterol 49 mg/dL (>40); LDL Cholesterol Calculated 99 mg/dL (<100); Triglycerides 83 mg/dL (<150)
[2023-09-09 12:06] LABS: TSH reflex Free T4 2.51 uIU/mL (0.32-4.0); Vitamin D 25-OH Total 34.8 ng/mL (>30)
== END 2023-09-09 07:36 | disposition home or self-care (01) ==
LOC: HO.WFDLDS 07:35
PROVIDERS: Visit Provider Nurse Practitioner Family
DX: E55.9 Vitamin D deficiency, unspecified (principal); E78.00 Pure hypercholesterolemia, unspecified; E03.9 Hypothyroidism, unspecified; D64.9 Anemia, unspecified
CPT/HCPCS: 36415; 80061; 82306; 84443; 85027

== ENCOUNTER 2023-09-13 11:35 | Outpatient (AMB) | payer OTHER, SELFPAY ==
[2023-09-13 11:39] VITALS: BP 134/78; PULSE 80; RESP 13; TEMP 36.4; O2SAT 99; BMI 39.6
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
== END 2023-09-13 12:29 | disposition home or self-care (01) ==
PROVIDERS: PCP Nurse Practitioner Family; Visit Provider Nurse Practitioner Family
DX: Z00.00 Encounter for general adult medical examination without abnormal findings (principal); D64.9 Anemia, unspecified; M54.16 Radiculopathy, lumbar region; Z12.11 Encounter for screening for malignant neoplasm of colon; B02.29 Other postherpetic nervous system involvement; Z12.31 Encounter for screening mammogram for malignant neoplasm of breast; Z12.4 Encounter for screening for malignant neoplasm of cervix; Z71.85 Encounter for immunization safety counseling; Z12.2 Encounter for screening for malignant neoplasm of respiratory organs
CPT/HCPCS: 99396

== ENCOUNTER 2023-09-13 12:31 | Outpatient (REF) | payer OTHER, SELFPAY ==
[2023-09-13 15:10] LABS: Immature Retic Fraction 16.7 % (3.0-15.9); Retic HGB Equivalent 25.5 pg (30.0-35.0); Reticulocyte Percent 1.1 % (0.5-1.8); Reticulocytes Absolute 0.049 X10*6/uL (0.026-0.095)
[2023-09-13 15:43] LABS: Iron 23 mcg/dL (30-160); Percent Iron Saturation 6 % (15-50); Total Iron Binding Capacity 363 mcg/dL (228-428); Unsaturated Iron Binding 340 ug/dL
[2023-09-13 15:50] LABS: Ferritin 9 ng/mL (10-250)
[2023-09-13 16:00] LABS: Folate 10.9 ng/mL (> or = 4.0); Vitamin B12 293 pg/mL (200-900)
== END 2023-09-13 12:32 | disposition home or self-care (01) ==
LOC: HO.WFDLDS 12:31
PROVIDERS: Visit Provider Nurse Practitioner Family
DX: D64.9 Anemia, unspecified (principal)
CPT/HCPCS: 36415; 82607; 82728; 82746; 83540; 85045

== ENCOUNTER 2023-09-24 14:53 | Outpatient (REF) | payer OTHER, SELFPAY ==
--- NOTE | ~2023-09-24 | XR_ITS ---
EXAMINATION: XR LUMBOSACRAL SPINE WITH OBLIQUES CLINICAL INFORMATION: Lumbar radiculopathy. COMPARISON: Lumbar spine radiographs dated 04/20/2023. TECHNIQUE: AP and lateral (neutral, flexion and extension) views of the lumbosacral spine are submitted. FINDINGS: There is bony demineralization. At T11, there is an age-indeterminate mild anterior wedge compression fracture. At L2-L3, there is a 3 mm retrolisthesis and mild posterior disc space narrowing. There has been a prior posterior fusion at L4-L5, with intact posterior fixator rods, fixator screws and disc spacer. No hardware failure or loosening is seen. There is a stable 7 mm anterolisthesis at this level, which remains constant with flexion and extension. There is mild disc space narrowing at L5-S1. No acute fracture or spondylolisthesis is seen. This multi-level moderate lower thoracic and mild lumbar spondylosis. There are aortoiliac atherosclerotic calcifications. XR/XR lumbar spine 4V min IMPRESSION: 1. There has been a prior posterior fusion at L4-L5, without hardware failure or loosening noted. No instability is noted at this level with flexion or extension. 2. There is mild degenerative disc disease at L2-L3 and L5-S1. 3. There is multi-level thoracolumbar spondylosis.
== END 2023-09-24 14:54 | disposition home or self-care (01) ==
LOC: HO.HOSX 14:53
PROVIDERS: PCP Nurse Practitioner Family; Visit Provider Physician Assistant
DX: M54.16 Radiculopathy, lumbar region (principal)
CPT/HCPCS: 72110; 99212

== ENCOUNTER 2023-09-24 14:53 | Outpatient (AMB) | payer OTHER, SELFPAY ==
--- NOTE | 2023-09-24 14:55 | A.SPINEOV_ITS ---
Intake Intake Visit Reasons: back pain Intake Note: Ms. Duenas is here today c/o Back pain Foreign Language Interpreter Required: No Allergies prednisone Allergy (Verified 09/13/23 11:54) Unknown Assessment & Plan Assessment & Plan (1) Lumbar radiculopathy: Code(s): M54.16 - Radiculopathy, lumbar region Plan Mrs Duenas is returning today to the office to discuss issues with her low back. She underwent an L4-5 minimally invasive fusion with evidence of good correction of her spondylolisthesis on x-ray but unfortunately she has not really felt the improvement in her back discomfort that she was hoping. She is still dealing with chronic back pain and having a lot of difficulty going up and downstairs. For the most part she has not seen any significant improvement since surgery. I went back and looked at her last x-rays that were done in April in the placement of the hardware looked good and the alignment looked excellent. I am going to repeat those x-rays today, in order a noncontrast CT of the lumbar spine to evaluate for graft subsidence or evidence of any pseudoarthrosis. If those are normal, then we could be dealing with a failed back syndrome. We know that there is 20-30% of patients who undergo fusion who do not see significant improvement in the back pain postoperatively. I would like to rule out issues with the hardware 1st however before we make that diagnosis. Total amount of time spent in this visit was 20 minutes in discussion of symptoms, lumbar X imaging results and subsequent plan of care Guilherme Pineda MD,PhD [facility] Orders: Orders XR lumbar spine 4V min Today M54.16 - Radiculopathy, lumbar region CT lumbar spine wo IV con Today M54.16 - Radiculopathy, lumbar region Coding Level of Care Code Est Pt Level 3 (72170) Diagnoses Lumbar radiculopathy M54.16
== END 2023-09-24 15:25 | disposition home or self-care (01) ==
PROVIDERS: PCP Nurse Practitioner Family; Visit Provider Physician Assistant
DX: M54.16 Radiculopathy, lumbar region (principal)
CPT/HCPCS: 99024

== ENCOUNTER 2023-11-05 15:06 | Outpatient (REF) | payer OTHER, SELFPAY ==
--- NOTE | ~2023-11-05 | CT_ITS ---
EXAMINATION: CT LUMBAR SPINE WITHOUT CONTRAST CLINICAL INFORMATION: Lumbar radiculopathy, status post L4-L5 fusion in February 2023 COMPARISON: Lumbar spine x-ray on 09/24/2023 TECHNIQUE: Multiple 2 and 1.5 mm axial images of the lumbar spine were obtained from lower T12 to S1 levels without IV contrast enhancement. Bone window and soft tissue window images were reconstructed. Coronal and Sagittal bone window images were also reconstructed from the axial image data. This CT examination was performed using dose optimization techniques as appropriate, variously including the following: *Automated exposure control *Adjustment of mA and/or kV according to patient size (this includes techniques or standardized protocols for targeted exams where dose is matched to indication/reason for exam; i.e. extremities or head) *Use of iterative reconstruction technique DLP; 1461 mGy-cm FINDINGS: There is mild wedge compression fracture of T11. Advanced T10-T11, T11-T12 degenerative thoracic disc disease with marked loss of disc height and vacuum disc phenomenon is present. The visualized lumbar vertebrae are intact. T12/L1: Bony structures are intact with normal alignment. Intervertebral disc height is markedly reduced, with vacuum disc phenomenon. Sclerotic vertebral endplate changes are seen at T12-L1 junction. Bilateral neuroforamina are patent. Bilateral apophyseal joints are intact with normal alignment. L-1/L-2: Bony structures are intact with normal alignment. Intervertebral disc height is normal. Bilateral neuroforamina are patent. Bilateral apophyseal joints are intact with normal alignment. L2/L3: Bony structures are intact with normal alignment. Intervertebral disc height is normal. Bilateral neuroforamina are patent. Bilateral apophyseal joints are intact with normal alignment. L3/L4: Bony structures are intact with normal alignment. Intervertebral disc height is normal. Bilateral neuroforamina are patent. Bilateral apophyseal joints are intact with normal alignment. Bilateral apophyseal joints show loss of joint space, sclerosis, facet hypertrophy and osteophytosis. L4/L5: Bony structures are intact with anterior L4 on L5 displacement by 0.3 cm. Intervertebral metallic spacer is present. Posterior spinal fixation with transpedicular screws and vertical bars are present. Bilateral neuroforamina are patent. Bilateral apophyseal joints are intact with normal alignment. L5/S1: Bony structures are intact with normal alignment. Intervertebral disc height is normal. Bilateral neuroforamina are patent. Bilateral apophyseal joints are intact with normal alignment. Left adrenal body tumor is seen measuring 3.5 cm in AP diameter, 1.8 cm in width, mean attenuation of -10 Hounsfield units. Surgical suture line is seen along the gastric body. A large left lateral mid renal cortical simple cyst is partially visualized, measuring 6.2 cm in diameter in the visible portion. CT/CT lumbar spine wo IV con IMPRESSION: 1. Mild wedge compression fracture of T11. 2. Advanced T10-T11, T11-T12, T12-L1 degenerative thoracic disc disease. 3. Grade 1 L4-L5 anterolisthesis. Status post L4-L5 posterior spinal fixation with intervertebral metallic spacer. 4. 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 5. Large left lateral mid renal cortical simple cyst is partially visualized, measuring 6.2 cm in diameter in the visible portion, for which no follow up imaging is recommended.
== END 2023-11-05 15:07 | disposition home or self-care (01) ==
LOC: HO.CT 15:06
PROVIDERS: PCP Nurse Practitioner Family; Visit Provider Physician Assistant
DX: M54.16 Radiculopathy, lumbar region (principal)
CPT/HCPCS: 72132

== ENCOUNTER 2023-11-16 11:22 | Outpatient (AMB) | payer OTHER, SELFPAY ==
[2023-11-16 12:19] VITALS: BP 122/78; PULSE 58; RESP 16; O2SAT 98; BMI 39.7
--- NOTE | 2023-11-16 12:19 | A.OFFPC_ITS ---
Vital Signs 11/16/23 12:19 Height 5 ft 2 in Weight 217 lb BMI 39.7 BP 122/78 Blood Pressure Location Lt brachial Position Sitting Respiration 16 Pulse 58 Pulse Source Pulse Oximeter Pulse Oximetry (%) 98 Oxygen Delivery Method Room Air Intake Visit Reasons: anxiety, depression, anemia Intake Note: Follow up anxiety, depression Seismic Survey Assistant Required: No Allergies prednisone Allergy (Verified 11/16/23 12:53) Unknown Medication List - Last Reconciled 11/16/23 by Kiara Winslow CNP bupropion HCl XL 300 mg PO DAILY 90 days calcitriol 0.25 mcg PO DAILY cetirizine (Zyrtec) 10 mg PO DAILY ferrous sulfate 325 mg PO DAILY 30 days hydroxyzine HCl 25 mg PO BEDTIME PRN 90 days levothyroxine 137 mcg PO DAILY 30 days meloxicam 15 mg PO DAILY 30 days methocarbamol 750 mg PO Q8H omeprazole 20 mg PO BID pregabalin 200 mg PO TID rosuvastatin 20 mg PO BEDTIME sertraline 100 mg PO DAILY 90 days Tobacco use date assessed: 09/13/23 Dental Screening Dental Screen Date: 09/13/23 HPI HPI Comments History of Present Illness Details 58-year-old female presents for anxiety, depression, and anemia follow- up She admits to taking her medications as prescribed without adverse reactions She reports controlled anxiety and depression symptoms She reports continued chronic low back pain. She is followed by [facility] neuro spine She did not get CBC, iron profile, and ferritin blood work done but notes she would do so today [facility] Medical History Arthritis Back pain Thyroid disease GERD (gastroesophageal reflux disease) Depression Numbness Elevated cholesterol Fibromyalgia Chronic daily headache History of shingles Feeling grief Vitamin D deficiency Morbid obesity Surgical History History of back surgery Hx of neck surgery Hx of bariatric surgery History of carpal tunnel repair Hx of section Family History Mother Bone cancer Father Arthralgia Other Mental health disorder Substance abuse Social History Household Members: Children Household Members Other:: son Housing: House Are you a primary inspector health care facilities to a significant other at home: No Do you presently have visiting nurse or other home services: Yes (restorative aide) Alcohol intake: never Patient Tobacco Use Status: Current everyday Tobacco user Tobacco use type: Cigarette Cigarette Packs Per Day: 1 Cigarettes Per Day: 20.0 Years Smoked: 42 e-Cigarette/Vaping Use: Never Used Substance Use Type: Marijuana service: No Current occupational status: disabled Current occupational exposures/hazards: No Cognitive needs: No Hearing needs: No Vision needs: Yes Questionnaire PHQ-9 Over the last 2 weeks, how often have you been bothered by any of the following problems? 1. Little interest or pleasure in doing things: several days 2. Feeling down, depressed, or hopeless: several days 3. Trouble falling or staying asleep, or sleeping too much: several days 4. Feeling tired or having little energy: several days 5. Poor appetite or overeating: several days 6. Feeling bad about yourself - or that you are a failure or have let yourself or your family down: not at all 7. Trouble concentrating on things, such as reading the newspaper or watching television: not at all 8. Moving or speaking so slowly that other people could have noticed. Or the opposite - being so fidgety or restless that you have been moving around a lot more than usual: not at all 9. Thoughts that you would be better off or of hurting yourself in some way: not at all Total score: 5 Depression Screening Interpretation: Positive Depression Screening Follow-up: Existing condition and In treatment Depression Screening Done: Yes 73660 - PHQ-9 Billing: Yes Source: Developed by Drs. Ab Rosales, Ruba Barnes, Kash Edwards and colleagues, with an educational kristyn from [email or web address]. Thrive Questionnaire Date Thrive assessed: 09/13/23 CARLY-7 AMB Questionnaire CARLY-7 Date CARLY - 7 assessed: 11/16/23 Feeling nervous, anxious, or on edge: 1 = Several days Not being able to stop or control worryin = Several days Worrying too much about different things: 1 = Several days Trouble relaxin = Nearly every day Being so restless that it is hard to sit still: 2 = More than half the days Becoming easily annoyed or irritable: 2 = More than half the days Feeling afraid as if something awful might happen: 0 = Not at all Total CARLY-7 score (0-4 normal; 5-9 mild; 10-14 moderate; 15-21 severe): 10 Source: Developed by Drs. Ab Rosales, Ruba Barnes, Kash Edwards and colleagues, with an educational kristyn from [email or web address]. CARLY-7 Assessment Billing CARLY-7 Assessment Tool: CARLY-7 Assessment 43359 Review of Systems Const Details: Const Denies chills, Denies fatigue, Denies fever(s), Denies headache(s) and Denies weakness ENT Denies dizziness and Denies headache(s) Card Denies chest pain, Denies lightheadedness, Denies dyspnea and Denies other (Palpitations) Resp Denies cough, Denies dyspnea, Denies wheezing and Denies other ( shortness of breath) GI Denies abdominal pain, Denies melena, Denies hematochezia, Denies change in bowel habits, Denies dyspepsia and Denies nausea Denies hematuria and Denies dysuria Musc Denies abnormal gait, Denies myalgias, Denies arthralgias, Denies numbness and Denies tingling Skin/Breast Denies rash, Denies unusual bruising and Denies wounds Neuro Denies abnormal gait, Denies dizziness, Denies headache(s), Denies memory loss, Denies numbness, Denies Sensory deficit (Neuro), Denies tingling and Denies weakness Psych Denies anxiety, Denies depression, Denies memory loss Endo Denies cold intolerance, Denies fatigue, Denies heat intolerance, Denies polydipsia and Denies polyuria Aller/Immun Denies wheezing Physical exam (Primary Care) Vital Signs: Last Vital Signs Pulse 58 11/16/23 12:19 Resp 16 11/16/23 12:19 BP 122/78 11/16/23 12:19 Pulse Ox 98 11/16/23 12:19 Oxygen Delivery Method Room Air 11/16/23 12:19 BMI result Body Mass Index 39.7 Tobacco/Smoking Status: Tobacco use Status Tobacco use date assessed 09/13/23 11/16/23 12:21 Patient Tobacco Use Status Current everyday Tobacco 11/16/23 12:21 Tobacco use type Cigarette 11/16/23 12:21 e-Cigarette/Vaping Use Never Used 11/16/23 12:21 PHQ-9: PHQ-9 Score PHQ-9: Total score 5 11/16/23 12:55 Depression Screening Interpretation: Positive Depression Screening Follow-up: Existing condition and In treatment Thrive Assessment: Date of Thrive Assessment Date Thrive assessed 09/13/23 11/16/23 12:21 Const Other: General: no acute distress and well developed Nutritional Appearance: well nourished Orientation/consciousness: patient oriented x3 HENAZ Head: Yes normocephalic and Yes atraumatic Eyes General: appearance normal, both eyes and all related structures Pupils: Equal, round and reactive pupils present EOM: EOMs intact bilaterally Resp Effort & Inspection: normal respiratory effort Auscultation: clear to auscultation bilaterally Cardio Rate: regular rate Rhythm: regular rhythm Heart sounds: S1 normal heart sound present, S2 normal heart sound present, no gallops, no murmurs and no rubs GI Palpation (GI): No Abdominal aortic bruit present, Soft to palpation, nontender, No hepatosplenomegaly present and No Rebound tenderness present Auscultation: normal bowel sounds General: Yes no CVA tenderness Back/Spine/Pelvis Back: no CVA tenderness Cervical Spine: cervical ROM normal and No Cervical spine tenderness Thoracic/Lumbar Spine: thoraco-lumbar ROM normal, No pain with thoraco-lumbar ROM, No thoracic spinal tenderness and No lumbar spinal tenderness Extrem General: Yes normal to inspection, No edema and No calf tenderness Skin General: warm and dry. Normal skin color. Normal skin turgor Neuro General: patient oriented x3, gait normal and no focal neuro deficit Cranial nerves: Yes Equal, round and reactive pupils present Cognition (Neuro): normal cognition Gait exam (Neuro): Normal gait present Sensory Exam: No Sensory deficit (Neuro) Psych Appearance: grossly normal Affect: normal affect Attitude: cooperative Thought process: Normal thought process present Assessment and Plan Assessment & Plan (1) Iron deficiency anemia: Code(s): D50.9 - Iron deficiency anemia, unspecified Plan: She did not get CBC, iron profile, and ferritin blood work done but notes she would do so today Will review results and make changes as needed Recent iron and ferritin levels in August were low, 23 and 9 respectively Continue to take ferrous sulfate 325 mg daily Encouraged to get nonfasting CBC and iron studies blood work before her next visit Follow-up in 3 months or return sooner with symptoms or concerns Verbalized understanding and agreed with the plan (2) Anxiety and depression: Code(s): F41.9 - Anxiety disorder, unspecified; F32.A - Depression, unspecified Plan: Reports controlled anxiety and depression symptoms PHQ-9 and CARLY-7 scores revealed mild depression and moderate anxiety respectively Continue to take sertraline, bupropion, and hydroxyzine as prescribed Routine exercise encouraged Follow-up in 3 months or return sooner with worsening or new symptoms Verbalized understanding and agreed with treatment plan (3) Lumbar radiculopathy: Code(s): M54.16 - Radiculopathy, lumbar region Plan: Reports chronic low back pain Lumbar tenderness to palpation Continue to take meloxicam, methocarbamol, and pregabalin as prescribed Follow-up with [facility] neuro spine as planned Return with worsening or new symptoms Verbalized understanding and agreed with treatment plan Orders: Orders Reticulocyte Count Today D50.9 - Iron deficiency anemia, unspecified Coding Level of Care Code Est Pt Level 4 (70300) Complex EM visit Add On G2211 Diagnoses Iron deficiency anemia D50.9 Anxiety and depression F41.9; F32.A Lumbar radiculopathy M54.16 Additional Codes CARLY-7 Assessment Billing - CARLY-7 Assessment Tool: CARLY-7 Assessment 46953 ([id number])
== END 2023-11-16 13:10 | disposition home or self-care (01) ==
PROVIDERS: PCP Nurse Practitioner Family; Visit Provider Nurse Practitioner Family
DX: D50.9 Iron deficiency anemia, unspecified (principal); F41.9 Anxiety disorder, unspecified; F32.A Depression, unspecified; M54.16 Radiculopathy, lumbar region
CPT/HCPCS: 99214; G2211

== ENCOUNTER 2023-11-16 13:02 | Outpatient (REF) | payer OTHER, SELFPAY ==
[2023-11-16 14:23] LABS: Hematocrit 37.4 % (37.0-47.0); Hemoglobin 12.6 g/dl (12.0-16.0); Immature Retic Fraction 20.8 % (3.0-15.9); Mean Corpuscular HGB Conc 33.7 g/dl (31.0-35.0); Mean Corpuscular Hemoglobin 26.9 pg (27.0-33.0); Mean Corpuscular Volume 79.7 fL (80.0-98.0); Mean Platelet Volume 10.6 fL (9.4-12.3); Platelet Count 245 X10*3/uL (160-400); Red Blood Count 4.69 X10*6/uL (4.20-5.50); Reticulocyte Percent 1.9 % (0.5-1.8); Reticulocytes Absolute 0.089 X10*6/uL (0.026-0.095); White Blood Count 8.2 X10*3/uL (4.8-10.8)
[2023-11-16 15:00] LABS: Iron 48 mcg/dL (30-160); Percent Iron Saturation 16 % (15-50); Total Iron Binding Capacity 295 mcg/dL (228-428); Unsaturated Iron Binding 247 ug/dL
[2023-11-16 15:15] LABS: Ferritin 18 ng/mL (10-250)
== END 2023-11-16 13:03 | disposition home or self-care (01) ==
LOC: HO.WFDLDS 13:02
PROVIDERS: Visit Provider Nurse Practitioner Family
DX: D50.9 Iron deficiency anemia, unspecified (principal)
CPT/HCPCS: 36415; 82728; 83540; 85027; 85045

== ENCOUNTER 2024-01-19 14:56 | Outpatient (REF) | payer OTHER, SELFPAY ==
[2024-01-19 17:31] LABS: Hematocrit 39.2 % (37.0-47.0); Hemoglobin 13.1 g/dl (12.0-16.0); Mean Corpuscular HGB Conc 33.4 g/dl (31.0-35.0); Mean Corpuscular Hemoglobin 28.4 pg (27.0-33.0); Mean Corpuscular Volume 84.8 fL (80.0-98.0); Mean Platelet Volume 10.9 fL (9.4-12.3); Platelet Count 254 X10*3/uL (160-400); Red Blood Count 4.62 X10*6/uL (4.20-5.50); Red Cell Distribution Width 17.2 % (11.0-16.0); White Blood Count 7.5 X10*3/uL (4.8-10.8)
[2024-01-19 17:54] LABS: Iron 79 mcg/dL (30-160); Percent Iron Saturation 26 % (15-50); Total Iron Binding Capacity 302 mcg/dL (228-428); Unsaturated Iron Binding 223 ug/dL
[2024-01-19 18:11] LABS: Ferritin 14 ng/mL (10-250)
== END 2024-01-19 14:57 | disposition home or self-care (01) ==
LOC: HO.WFDLDS 14:56
PROVIDERS: Visit Provider Nurse Practitioner Family
DX: D50.9 Iron deficiency anemia, unspecified (principal)
CPT/HCPCS: 36415; 82728; 83540; 85027

== ENCOUNTER 2024-01-25 11:08 | Outpatient (AMB) | payer OTHER, SELFPAY ==
--- NOTE | 2024-01-25 11:09 | MHC.PC.OV ---
Vital Signs 01/25/24 11:18 Weight 225 lb BP 122/70 Blood Pressure Location Lt brachial Position Sitting Pulse 62 Pulse Source Pulse Oximeter Temp 97.7 F Temp Source Temporal Artery Scan Pulse Oximetry (%) 98 Oxygen Delivery Method Room Air Intake Visit Reasons: 3 mos anxiety, depression, BARBARA Intake Note: patient here for follow up on depression and anxiety. Zipper Cutter Required: No Is last menstrual period known: No Post menopausal: No Patient : No Allergies prednisone Allergy (Verified 01/25/24 11:35) Unknown Medication List - Last Reconciled 01/25/24 by Kiara Winslow CNP bupropion HCl XL 300 mg PO DAILY 90 days calcitriol 0.25 mcg PO DAILY cetirizine (Zyrtec) 10 mg PO DAILY ferrous sulfate 325 mg PO DAILY 30 days hydroxyzine HCl 25 mg PO BEDTIME PRN 90 days levothyroxine 137 mcg PO DAILY 30 days meloxicam 15 mg PO DAILY 30 days omeprazole 20 mg PO BID pregabalin 200 mg PO TID rosuvastatin 20 mg PO BEDTIME 90 days sertraline 100 mg PO DAILY 90 days Tobacco use date assessed: 01/25/24 Dental Screening Dental Screen Date: 01/25/24 Did you have a dental visit in the last 12 months?: Yes Did you have a dental problem in the last 6 months where you did not have access to dental care?: No Was dental information given to patient?: Patient has dentist HPI HPI Comments History of Present Illness Details 58-year-old female presents for anxiety, depression, and anemia follow-up She admits to taking her medications as prescribed without adverse reactions She reports controlled anxiety and depression symptoms. However, the past month has been challenging because it was the anniversary of of her 's . He 3 years ago, followed by the of her father, and dog. Her family and friends have been supportive. She tried psychotherapy but does not want to do it again because she can talk to her friends and family. She reports continued chronic low back pain. She was followed by [facility] neuro spine. She notes that they recommended she follow up with pain management but declined. She does not want to be be followed by pain management. She has not tried physical therapy but will hold off on that until she has a home evaluation by her health plan which is scheduled. She notes that she generally eats healthy. She works frequently for exercise. Her sleep is usually interrupted by back pain. [facility] Medical History Arthritis Back pain Thyroid disease GERD (gastroesophageal reflux disease) Depression Numbness Elevated cholesterol Fibromyalgia Chronic daily headache History of shingles Feeling grief Vitamin D deficiency Morbid obesity Surgical History History of back surgery Hx of neck surgery Hx of bariatric surgery History of carpal tunnel repair Hx of section Family History Mother Bone cancer Father Arthralgia Other Mental health disorder Substance abuse Social History Household Members: Children Household Members Other:: son Housing: House Are you a primary healthcare architect to a significant other at home: No Do you presently have visiting nurse or other home services: Yes (ball assembler) Alcohol intake: never Patient Tobacco Use Status: Current everyday Tobacco user Tobacco use type: Cigarette Cigarette Packs Per Day: 1 Cigarettes Per Day: 20.0 Years Smoked: 42 e-Cigarette/Vaping Use: Never Used Substance Use Type: Marijuana service: No Current occupational status: disabled Current occupational exposures/hazards: No Cognitive needs: No Hearing needs: No Vision needs: Yes Questionnaire PHQ-9 Over the last 2 weeks, how often have you been bothered by any of the following problems? 1. Little interest or pleasure in doing things: more than half the days 2. Feeling down, depressed, or hopeless: more than half the days 3. Trouble falling or staying asleep, or sleeping too much: several days 4. Feeling tired or having little energy: several days 5. Poor appetite or overeating: several days 6. Feeling bad about yourself - or that you are a failure or have let yourself or your family down: more than half the days 7. Trouble concentrating on things, such as reading the newspaper or watching television: more than half the days 8. Moving or speaking so slowly that other people could have noticed. Or the opposite - being so fidgety or restless that you have been moving around a lot more than usual: not at all 9. Thoughts that you would be better off or of hurting yourself in some way: not at all Total score: 11 Depression Screening Interpretation: Positive Depression Screening Follow-up: Existing condition and In treatment Depression Screening Done: Yes 12744 - PHQ-9 Billing: Yes Source: Developed by Drs. Ab Rosales, Kash Spear and colleagues, with an educational kristyn from [email or web address] Thrive Questionnaire Date Thrive assessed: 09/13/23 CARLY-7 AMB Questionnaire CARLY-7 Date CARLY - 7 assessed: 01/25/24 Feeling nervous, anxious, or on edge: 2 = More than half the days Not being able to stop or control worryin = More than half the days Worrying too much about different things: 1 = Several days Trouble relaxin = More than half the days Being so restless that it is hard to sit still: 2 = More than half the days Becoming easily annoyed or irritable: 2 = More than half the days Feeling afraid as if something awful might happen: 2 = More than half the days Total CARLY-7 score (0-4 normal; 5-9 mild; 10-14 moderate; 15-21 severe): 13 Source: Developed by Drs. Ab Rosales, Ruba Barnes, Kash Edwards and colleagues, with an educational kristyn from [employer] ([email or web address] CARLY-7 Assessment Billing CARLY-7 Assessment Tool: CARLY-7 Assessment 98378 Review of Systems Const Details: Const Denies chills, Denies fatigue, Denies fever(s), Denies headache(s) and Denies weakness ENT Denies dizziness and Denies headache(s) Card Denies chest pain, Denies lightheadedness, Denies dyspnea and Denies other (Palpitations) Resp Denies cough, Denies dyspnea, Denies wheezing and Denies other ( shortness of breath) GI Denies abdominal pain, Denies melena, Denies hematochezia, Denies change in bowel habits, Denies dyspepsia and Denies nausea Denies hematuria and Denies dysuria Musc Denies abnormal gait, Denies myalgias, Denies numbness and Denies tingling Skin/Breast Denies rash, Denies unusual bruising and Denies wounds Neuro Denies abnormal gait, Denies dizziness, Denies headache(s), Denies memory loss, Denies numbness, Denies Sensory deficit (Neuro), Denies tingling and Denies weakness Psych Reports anxiety, Reports depression, Denies memory loss Endo Denies cold intolerance, Denies fatigue, Denies heat intolerance, Denies polydipsia and Denies polyuria Aller/Immun Denies wheezing Physical exam (Primary Care) Vital Signs: Last Vital Signs Temp 97.7 F 01/25/24 11:18 Pulse 62 01/25/24 11:18 BP 122/70 01/25/24 11:18 Pulse Ox 98 01/25/24 11:18 Oxygen Delivery Method Room Air 01/25/24 11:18 Tobacco/Smoking Status: Tobacco use Status Tobacco use date assessed 01/25/24 01/25/24 11:22 Patient Tobacco Use Status Current everyday Tobacco 01/25/24 11:11 Tobacco use type Cigarette 01/25/24 11:11 e-Cigarette/Vaping Use Never Used 01/25/24 11:11 PHQ-9: PHQ-9 Score PHQ-9: Total score 11 01/25/24 11:25 Depression Screening Interpretation: Positive Depression Screening Follow-up: Existing condition and In treatment Thrive Assessment: Date of Thrive Assessment Date Thrive assessed 09/13/23 01/25/24 11:11 Const Other: General: no acute distress and well developed Nutritional Appearance: well nourished Orientation/consciousness: patient oriented x3 HENMT Head: Yes normocephalic and Yes atraumatic Eyes General: appearance normal, both eyes and all related structures Pupils: Equal, round and reactive pupils present EOM: EOMs intact bilaterally Resp Effort & Inspection: normal respiratory effort Auscultation: clear to auscultation bilaterally Cardio Rate: regular rate Rhythm: regular rhythm Heart sounds: S1 normal heart sound present, S2 normal heart sound present, no gallops, no murmurs and no rubs GI Palpation (GI): No Abdominal aortic bruit present, Soft to palpation, nontender, No hepatosplenomegaly present and No Rebound tenderness present Auscultation: normal bowel sounds General: Yes no CVA tenderness Back/Spine/Pelvis Back: no CVA tenderness Cervical Spine: cervical ROM normal and No Cervical spine tenderness Thoracic/Lumbar Spine: thoraco-lumbar ROM normal, No pain with thoraco-lumbar ROM, No thoracic spinal tenderness and No lumbar spinal tenderness Extrem General: Yes normal to inspection, No edema and No calf tenderness Skin General: warm and dry. Normal skin color. Normal skin turgor Neuro General: patient oriented x3, gait normal and no focal neuro deficit Cranial nerves: Yes Equal, round and reactive pupils present Cognition (Neuro): normal cognition Gait exam (Neuro): Normal gait present Sensory Exam: No Sensory deficit (Neuro) Psych Appearance: grossly normal Affect: normal affect Attitude: cooperative Thought process: Normal thought process present Assessment and Plan Assessment & Plan (1) Anxiety and depression: Code(s): F41.9 - Anxiety disorder, unspecified; F32.A - Depression, unspecified Plan: Controlled anxiety and depression symptoms. However, the past month has been challenging due to the anniversary of her 's PHQ-9 and CARLY-7 scores revealed moderate depression and anxiety History of psychotherapy will declines at this time Her family and friends have been supportive Continue current treatment regimen Routine exercise encouraged Follow-up in 3 months or sooner with worsening or new symptoms Verbalized understanding and agreed with the treatment plan (2) Iron deficiency anemia: Code(s): D50.9 - Iron deficiency anemia, unspecified Plan: CBC level and iron studies on 01/19/2024 were normal Continue current treatment regimen Advised to do CBC and iron study blood work a few days before her next visit Verbalized understanding and agreed with the plan (3) Lumbar radiculopathy: Code(s): M54.16 - Radiculopathy, lumbar region Plan: Was followed by [facility] neuro spine. Declined referral to pain management as recommended Continue current treatment regimen May referred to physical therapy as needed Follow-up with worsening or new symptoms Verbalized understanding and agreed with the treatment plan Orders: Orders IRON PROFILE 3 Months D50.9 - Iron deficiency anemia, unspecified Ferritin 3 Months D50.9 - Iron deficiency anemia, unspecified Complete Blood Count no Diff 3 Months D50.9 - Iron deficiency anemia, unspecified Coding Level of Care Code New Pt Level 4 (08236) Complex EM visit Add On G2211 Diagnoses Anxiety and depression F41.9; F32.A Iron deficiency anemia D50.9 Lumbar radiculopathy M54.16 Additional Codes CARLY-7 Assessment Billing - CARLY-7 Assessment Tool: CARLY-7 Assessment [id number] ([id number])
[2024-01-25 11:18] VITALS: BP 122/70; PULSE 62; TEMP 36.5; O2SAT 98
== END 2024-01-25 11:52 | disposition home or self-care (01) ==
PROVIDERS: PCP Nurse Practitioner Family; Visit Provider Nurse Practitioner Family
DX: D50.9 Iron deficiency anemia, unspecified (principal); F41.9 Anxiety disorder, unspecified; F32.A Depression, unspecified; M54.16 Radiculopathy, lumbar region
CPT/HCPCS: 99214; G2211

== ENCOUNTER 2024-02-17 10:02 | Outpatient (AMB) | payer OTHER, SELFPAY ==
--- NOTE | 2024-02-17 10:22 | AM.OFFWIN_ITS ---
Intake Vital Signs 02/17/24 10:24 Height 5 ft 2 in Weight 226 lb BMI 41.3 BP 122/60 Blood Pressure Location Lt brachial Position Sitting Respiration 12 Pulse 67 Pulse Source Pulse Oximeter Pulse Oximetry (%) 96 Oxygen Delivery Method Room Air Intake Visit Reasons: swollen legs Intake Note: Patient is here for swollen legs without other symptoms x2 days. Patient reports no changes in meds, no changes in diet, and no improvement with elevation. Patient Tobacco Use Status: Current everyday Tobacco user Technologist Development Required: No Accompanied by: Self / Same As Patient Allergies prednisone Allergy (Severe, Verified 02/17/24 10:29) Swelling Medication List - Last Reconciled 02/17/24 by Cherie Eli PA-C bupropion HCl XL 300 mg PO DAILY 90 days calcitriol 0.25 mcg PO DAILY cetirizine (Zyrtec) 10 mg PO DAILY 30 days ferrous sulfate 325 mg PO DAILY 30 days hydroxyzine HCl 25 mg PO BEDTIME PRN 90 days levothyroxine 137 mcg PO DAILY 30 days meloxicam 15 mg PO DAILY 30 days omeprazole 20 mg PO BID pregabalin 200 mg PO TID rosuvastatin 20 mg PO BEDTIME 90 days sertraline 100 mg PO DAILY 90 days Do you need a note to return to daycare/school/sports/work: No HPI swollen legs HPI Details Pt is a 58 y/o female with a significant past medical history of back pain, anxiety, depression, morbid obesity, GERD who presents today to the walk in with complaints of bilateral lower leg swelling. She states it started yesterday and by the late afternoon she noticed that her feet were swollen and very puffy. She tried elevating it for most of the day which did help slightly. Overnight it felt like the swelling got better but this morning when she was walking around it returned. She states it is her lower legs, ankles and feet. There is no calf pain. No recent illness, trauma, surgery or travel. Denies any erythema, chest pain, shortness a breath. No weight changes. Her urination has been normal. Overall feeling fine. States that she does not really put a lot of salt on her food so does not know why this happened. She does have a history of varicose veins and did have a procedure to the left leg years ago. [facility] [place] Medical History Arthritis Back pain Thyroid disease GERD (gastroesophageal reflux disease) Depression Numbness Elevated cholesterol Fibromyalgia Chronic daily headache History of shingles Feeling grief Vitamin D deficiency Morbid obesity Surgical History History of back surgery Hx of neck surgery Hx of bariatric surgery History of carpal tunnel repair Hx of section Family History Mother Bone cancer Father Arthralgia Other Mental health disorder Substance abuse Social History Household Members: Children Household Members Other:: son Housing: House Are you a primary housekeeper child care to a significant other at home: No Do you presently have visiting nurse or other home services: Yes (housekeeper hospital) Alcohol intake: never Patient Tobacco Use Status: Current everyday Tobacco user Tobacco use type: Cigarette Cigarette Packs Per Day: 1 Cigarettes Per Day: 20.0 Years Smoked: 42 e-Cigarette/Vaping Use: Never Used Substance Use Type: Marijuana service: No Current occupational status: disabled Current occupational exposures/hazards: No Cognitive needs: No Hearing needs: No Vision needs: Yes Physical Exam Vital Signs: Last Vital Signs Pulse 67 02/17/24 10:24 Resp 12 02/17/24 10:24 BP 122/60 02/17/24 10:24 Pulse Ox 96 02/17/24 10:24 Oxygen Delivery Method Room Air 02/17/24 10:24 BMI result Body Mass Index 41.3 Const Orientation/consciousness: patient oriented x3 Neck Thyroid: Thyroid normal Lymphatic: no lymphadenopathy noted Resp Auscultation: clear to auscultation bilaterally Cardio Rate: regular rate Rhythm: regular rhythm Heart sounds: S1 normal heart sound present and S2 normal heart sound present GI Inspection: Yes normal to inspection Palpation (GI): Soft to palpation and Other GI palpation findings present (nontender, no cva tenderness) Auscultation: normoactive bowel sounds Skin General skin exam: no rashes or lesions noted Neuro General: patient oriented x3, gait normal and no focal motor deficits Extrem Other: DP pulses 2+ bilaterally. The calves are nontender. The legs are symmetrical and both 46.5 cm, 8 cm from the tibial plateau. There is 2+ pitting edema noted over the dorsum of the bilateral feet and ankles. Trace pitting edema noted over the lower legs. Assessment & Plan Assessment & Plan (1) Bilateral lower extremity edema: Code(s): R60.0 - Localized edema Plan: We will check labs today although I did discuss with her I think this is likely related to venous insufficiency, the humidity and possibly diet. I have encouraged her to elevate. Furosemide ordered to use short term for the swelling. We discussed risks, benefits and adverse effects of this medication. Advised to follow up with PCP. Orders: Orders Basic Metabolic Panel Today R60.0 - Localized edema D Dimer High Sensitivity Today R60.0 - Localized edema Medications: New furosemide 20 mg PO DAILY 7 tabs 0RF Coding Level of Care Code Est Pt Level 4 (69487) Diagnoses Bilateral lower extremity edema R60.0
[2024-02-17 10:24] VITALS: BP 122/60; PULSE 67; RESP 12; O2SAT 96; BMI 41.3
== END 2024-02-17 11:17 | disposition home or self-care (01) ==
PROVIDERS: PCP Nurse Practitioner Family; Visit Provider Physician Assistant
DX: R60.0 Localized edema (principal)
CPT/HCPCS: 99214

== ENCOUNTER 2024-02-17 11:13 | Outpatient (REF) | payer OTHER, SELFPAY ==
[2024-02-17 15:14] LABS: D Dimer High Sensitivity 230 NG/ML
[2024-02-17 15:52] LABS: Anion Gap 11 (12-20); Blood Urea Nitrogen 8 mg/dL (9-16); Calcium 9.3 mg/dL (8.4-10.2); Carbon Dioxide 28 mmol/L (22-29); Chloride 104 mmol/L (96-108); Estimated Glomerular Filt Rate > 60; Glucose Random 82 mg/dL (60-115); Potassium 4.2 mmol/L (3.3-5.1); Sodium 139 mmol/L (135-145)
== END 2024-02-17 11:14 | disposition home or self-care (01) ==
LOC: HO.WFDLDS 11:13
PROVIDERS: Visit Provider Physician Assistant
DX: R60.0 Localized edema (principal)
CPT/HCPCS: 36415; 80048; 85379

== ENCOUNTER 2024-04-20 13:56 | Outpatient (REF) | payer OTHER, SELFPAY ==
[2024-04-20 17:48] LABS: Hematocrit 43.1 % (37.0-47.0); Hemoglobin 14.8 g/dl (12.0-16.0); Mean Corpuscular HGB Conc 34.3 g/dl (31.0-35.0); Mean Corpuscular Volume 90.2 fL (80.0-98.0); Mean Platelet Volume 10.4 fL (9.4-12.3); Platelet Count 238 X10*3/uL (160-400); Red Blood Count 4.78 X10*6/uL (4.20-5.50); White Blood Count 7.6 X10*3/uL (4.8-10.8)
[2024-04-20 18:05] LABS: Iron 88 mcg/dL (30-160); Percent Iron Saturation 32 % (15-50); Total Iron Binding Capacity 273 mcg/dL (228-428); Unsaturated Iron Binding 185 ug/dL
[2024-04-20 18:11] LABS: Ferritin 24 ng/mL (10-250)
== END 2024-04-20 13:57 | disposition home or self-care (01) ==
LOC: HO.WFDLDS 13:56
PROVIDERS: Visit Provider Nurse Practitioner Family
DX: D50.9 Iron deficiency anemia, unspecified (principal)
CPT/HCPCS: 36415; 82728; 83540; 85027

== ENCOUNTER 2024-05-01 12:46 | Outpatient (AMB) | payer OTHER, SELFPAY ==
--- NOTE | 2024-05-01 12:55 | A.OFFPC_ITS ---
Vital Signs 05/01/24 13:02 Height 5 ft 2 in Weight 230 lb 2 oz BMI 42.1 BP 128/84 Blood Pressure Location Lt brachial Position Sitting Respiration 16 Pulse 64 Pulse Source Pulse Oximeter Temp 97.3 F Temp Source Oral Pulse Oximetry (%) 95 Oxygen Delivery Method Room Air Intake Visit Reasons: 3 mos anxiety, depression, BARBARA- see comments Intake Note: patient here for 3 month follow up on anxiety, depression, BARBARA. c/o ? sinus infection. 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: No Is last menstrual period known: No Post menopausal: No Patient : No Allergies prednisone Allergy (Severe, Verified 05/01/24 13:07) Swelling Medication List - Last Reconciled 05/01/24 by Kiara Winslow CNP bupropion HCl XL 300 mg PO DAILY 90 days calcitriol 0.25 mcg PO DAILY cetirizine (Zyrtec) 10 mg PO DAILY 30 days ferrous sulfate 325 mg PO DAILY 30 days furosemide 20 mg PO DAILY hydroxyzine HCl 25 mg PO BEDTIME PRN 90 days levothyroxine 137 mcg PO DAILY 30 days meloxicam 15 mg PO DAILY 30 days omeprazole 20 mg PO BID pregabalin 200 mg PO TID rosuvastatin 20 mg PO BEDTIME 90 days sertraline 100 mg PO DAILY 90 days Tobacco use date assessed: 05/01/24 Dental Screening Dental Screen Date: 05/01/24 Did you have a dental visit in the last 12 months?: Yes Did you have a dental problem in the last 6 months where you did not have access to dental care?: No Was dental information given to patient?: Patient has dentist HPI HPI Comments History of Present Illness Details 58-year-old female presents for ID, anxi ety, and depression follow-up She admits to taking her medications as prescribed without adverse reactions She reports controlled anxiety and depressive symptoms. Sleep is still an issue; her sleep is interrupted by chronic generalized pain She wants to be referred for pain management but declines physical therapy. She states that, I just don't want anyone touching me. It hurts more. She admits that she snores but never had a sleep study done She reports pressure sensation in a frontal and maxillary sinuses for the past 2-3 days. No runny nose, cough, sore throat, nasal congestion, headache, visual disturbances. No constitutional symptoms [facility] Medical History Arthritis Back pain Thyroid disease GERD (gastroesophageal reflux disease) Depression Numbness Elevated cholesterol Fibromyalgia Chronic daily headache History of shingles Feeling grief Vitamin D deficiency Morbid obesity Surgical History History of back surgery Hx of neck surgery Hx of bariatric surgery History of carpal tunnel repair Hx of section Family History Mother Bone cancer Father Arthralgia Other Mental health disorder Substance abuse Social History Household Members: Children Household Members Other:: son Housing: House Are you a primary hearing care practitioner to a significant other at home: No Do you presently have visiting nurse or other home services: Yes (spray unit feeder) Alcohol intake: never Patient Tobacco Use Status: Current everyday Tobacco user Tobacco use type: Cigarette Cigarette Packs Per Day: 1 Cigarettes Per Day: 20.0 Years Smoked: 42 e-Cigarette/Vaping Use: Never Used Substance Use Type: Marijuana service: No Current occupational status: disabled Current occupational exposures/hazards: No Cognitive needs: No Hearing needs: No Vision needs: Yes Questionnaire PHQ-9 Over the last 2 weeks, how often have you been bothered by any of the following problems? 1. Little interest or pleasure in doing things: more than half the days 2. Feeling down, depressed, or hopeless: several days 3. Trouble falling or staying asleep, or sleeping too much: nearly every day 4. Feeling tired or having little energy: nearly every day 5. Poor appetite or overeating: nearly every day 6. Feeling bad about yourself - or that you are a failure or have let yourself or your family down: several days 7. Trouble concentrating on things, such as reading the newspaper or watching television: several days 8. Moving or speaking so slowly that other people could have noticed. Or the opposite - being so fidgety or restless that you have been moving around a lot more than usual: not at all 9. Thoughts that you would be better off or of hurting yourself in some way: not at all Total score: 14 Depression Screening Interpretation: Positive Depression Screening Follow-up: Existing condition and In treatment Depression Screening Done: Yes 07157 - PHQ-9 Billing: Yes Source: Developed by Drs. Ab Rosales, Kash Spear and colleagues, with an educational kristyn from [employer]. Thrive Questionnaire Date Thrive assessed: 09/13/23 CARLY-7 AMB Questionnaire CARLY-7 Date CARLY - 7 assessed: 05/01/24 Feeling nervous, anxious, or on edge: 1 = Several days Not being able to stop or control worryin = Several days Worrying too much about different things: 1 = Several days Trouble relaxin = Several days Being so restless that it is hard to sit still: 1 = Several days Becoming easily annoyed or irritable: 1 = Several days Feeling afraid as if something awful might happen: 0 = Not at all Total CARLY-7 score (0-4 normal; 5-9 mild; 10-14 moderate; 15-21 severe): 6 Source: Developed by Drs. Ab Rosales, Kash Spear and colleagues, with an educational kristyn from [employer]. CARLY-7 Assessment Billing CARLY-7 Assessment Tool: CARLY-7 Assessment 79087 Review of Systems Const Details: Const Denies chills, Denies fatigue, Denies fever(s), Denies headache(s) and Denies weakness ENT Reports as per HPI Card Denies chest pain, Denies lightheadedness, Denies dyspnea and Denies other (Palpitations) Resp Denies cough, Denies dyspnea, Denies wheezing and Denies other ( shortness of breath) GI Denies abdominal pain, Denies melena, Denies hematochezia, Denies change in bowel habits, Denies dyspepsia and Denies nausea Denies hematuria and Denies dysuria Musc Denies abnormal gait, Denies myalgias, Denies arthralgias, Denies numbness and Denies tingling Skin/Breast Denies rash, Denies unusual bruising and Denies wounds Neuro Denies abnormal gait, Denies dizziness, Denies headache(s), Denies memory loss, Denies numbness, Denies Sensory deficit (Neuro), Denies tingling and Denies weakness Psych Denies anxiety, Denies depression, Denies memory loss Endo Denies cold intolerance, Denies fatigue, Denies heat intolerance, Denies polydipsia and Denies polyuria Aller/Immun Denies wheezing Physical exam (Primary Care) Tobacco/Smoking Status: Tobacco use Status Tobacco use date assessed 01/25/24 05/01/24 12:58 Patient Tobacco Use Status Current everyday Tobacco 05/01/24 12:58 Tobacco use type Cigarette 05/01/24 12:58 e-Cigarette/Vaping Use Never Used 05/01/24 12:58 Depression Screening Interpretation: Positive Depression Screening Follow-up: Existing condition and In treatment Thrive Assessment: Date of Thrive Assessment Date Thrive assessed 09/13/23 05/01/24 12:58 Const Other: General: no acute distress and well developed Nutritional Appearance: well nourished Orientation/consciousness: patient oriented x3 HENMT Head is normocephalic Bilateral ear canal and TM are normal Nasal turbinates and oropharynx are pink and moist Frontal and maxillary sinus tenderness to palpation No auricular or cervical lymphadenopathy Eyes General: appearance normal, both eyes and all related structures Pupils: Equal, round and reactive pupils present EOM: EOMs intact bilaterally Resp Effort & Inspection: normal respiratory effort Auscultation: clear to auscultation bilaterally Cardio Rate: regular rate Rhythm: regular rhythm Heart sounds: S1 normal heart sound present, S2 normal heart sound present, no gallops, no murmurs and no rubs GI Palpation (GI): No Abdominal aortic bruit present, Soft to palpation, nontender, No hepatosplenomegaly present and No Rebound tenderness present Auscultation: normal bowel sounds General: Yes no CVA tenderness Back/Spine/Pelvis Back: no CVA tenderness Cervical Spine: cervical ROM normal and No Cervical spine tenderness Thoracic/Lumbar Spine: thoraco-lumbar ROM normal, No pain with thoraco-lumbar ROM, thoracic spinal tenderness and lumbar spinal tenderness Extrem General: Yes normal to inspection, No edema and No calf tenderness Skin General: warm and dry. Normal skin color. Normal skin turgor Neuro General: patient oriented x3, gait normal and no focal neuro deficit Cranial nerves: Yes Equal, round and reactive pupils present Cognition (Neuro): normal cognition Gait exam (Neuro): Normal gait present Sensory Exam: No Sensory deficit (Neuro) Psych Appearance: grossly normal Affect: normal affect Attitude: cooperative Thought process: Normal thought process present Coding Level of Care Code Est Pt Level 4 (45725) Diagnoses Iron deficiency anemia D50.9 Anxiety and depression F41.9; F32.A Lumbar radiculopathy M54.16 Chronic pain syndrome G89.4 Snoring R06.83 Allergic rhinitis J30.9 Additional Codes CARLY-7 Assessment Billing - CARLY-7 Assessment Tool: CARLY-7 Assessment 38525 ([id number]) Assessment & Plan Assessment & Plan (1) Iron deficiency anemia: Code(s): D50.9 - Iron deficiency anemia, unspecified Category: Medical Plan: Recent H&H and iron studies are unremarkable. Her H&H and iron studies have been stable for several months Will discontinue ferrous sulfate at this time Will recheck CBC in 3 months Verbalized understanding and agreed with the plan (2) Anxiety and depression: Code(s): F41.9 - Anxiety disorder, unspecified; F32.A - Depression, unspecified Category: Medical Plan: Reports controlled anxiety and depressive symptoms. Sleep is an issue but attributes that to chronic generalized pain. She snores and has never had a sleep study PHQ-9 and CARLY-7 scores revealed moderate depression and mild anxiety respectively Continue current treatment regimen Routine exercise encouraged Will referral for sleep study Follow-up in 3 months or sooner with symptoms or concerns Verbalized understanding and agreed with the treatment plan (3) Lumbar radiculopathy: Code(s): M54.16 - Radiculopathy, lumbar region Category: Medical Plan: She reports chronic back and generalized pain. Sleep is an issue but attributes that to chronic back pain. She snores and has never had a sleep study. She was initially evaluated by Rheumatology for fibromyalgia and was advised to follow- up with her PCP She initially declined pain management referral but wants to be referred at this time. She declines referral for physical therapy Thoracic and lumbar spine tenderness to palpation Continue current treatment regimen Referred to pain management and sleep medicine Warm/cool compresses encouraged Follow-up with worsening or new symptoms Verbalized understanding and agreed with the treatment plan (4) Chronic pain syndrome: Code(s): G89.4 - Chronic pain syndrome Category: Medical Plan: Plan as above (5) Snoring: Code(s): R06.83 - Snoring Category: Medical Plan: Plan as above (6) Allergic rhinitis: Code(s): J30.9 - Allergic rhinitis, unspecified Category: Medical Plan: Reports pressure sensation in a frontal and maxillary sinuses for the past 2-3 days. No associated symptoms Tenderness to palpation of the frontal and maxillary sinuses No evidence of bacterial infection Continue to take Zyrtec daily May take Tylenol ibuprofen for pain or discomfort Adequate hydration encouraged Follow-up with worsening or new symptoms Verbalized understanding and agreed with the treatment plan Orders: Orders Lipid Panel 3 Months E78.00 - Pure hypercholesterolemia, unspecified Complete Blood Count no Diff 3 Months D50.9 - Iron deficiency anemia, unspecified Referrals Sleep Medicine Referral R06.83 - Snoring Pain Management Referral G89.4 - Chronic pain syndrome, M54.16 - Radiculopathy, lumbar region Medications: Refilled cetirizine (Zyrtec) 10 mg PO DAILY 30 days 30 tabs 3RF Discontinued ferrous sulfate Discontinued Reason: Doctor's Order 325 mg PO DAILY 30 days 30 tabs 1RF
[2024-05-01 13:02] VITALS: BP 128/84; PULSE 64; RESP 16; TEMP 36.3; O2SAT 95; BMI 42.1
== END 2024-05-01 13:31 | disposition home or self-care (01) ==
PROVIDERS: PCP Nurse Practitioner Family; Visit Provider Nurse Practitioner Family
DX: D50.9 Iron deficiency anemia, unspecified (principal); F41.9 Anxiety disorder, unspecified; F32.A Depression, unspecified; M54.16 Radiculopathy, lumbar region; G89.4 Chronic pain syndrome; R06.83 Snoring; J30.9 Allergic rhinitis, unspecified

== ENCOUNTER → 2024-05-01 12:46 | Outpatient (BNVA) | payer OTHER, SELFPAY | PROVIDERS: PCP Nurse Practitioner Family; Visit Provider Nurse Practitioner Family | DX: D50.9 Iron deficiency anemia, unspecified (principal); F41.9 Anxiety disorder, unspecified; F32.A Depression, unspecified; M54.16 Radiculopathy, lumbar region; G89.4 Chronic pain syndrome; R06.83 Snoring; J30.9 Allergic rhinitis, unspecified | CPT/HCPCS: 96127; 99212 ==

== ENCOUNTER 2024-05-23 12:42 | Outpatient (AMB) | payer OTHER, SELFPAY ==
--- NOTE | 2024-05-23 12:46 | A.OFFPC_ITS ---
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 She notes associated chills, watery eyes, and fluid build up around her eyes upon waking up every morning. No fever, unusual body aches, or body aches. She denies sick contact. [facility] Medical History Arthritis Back pain Thyroid disease GERD (gastroesophageal reflux disease) Depression Numbness Elevated cholesterol Fibromyalgia Chronic daily headache History of shingles Feeling grief Vitamin D deficiency Morbid obesity Surgical History History of back surgery Hx of neck surgery Hx of bariatric surgery History of carpal tunnel repair Hx of section Family History Mother Bone cancer Father Arthralgia Other Mental health disorder Substance abuse Social History Household Members: Children Household Members Other:: son Housing: House Are you a primary senior care manager to a significant other at home: No 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) Alcohol intake: never Patient Tobacco Use Status: Current everyday Tobacco user Tobacco use type: Cigarette Cigarette Packs Per Day: 1 Cigarettes Per Day: 20.0 Years Smoked: 42 e-Cigarette/Vaping Use: Never Used Substance Use Type: Marijuana service: No Current occupational status: disabled Current occupational exposures/hazards: No Cognitive needs: No Hearing needs: No Vision needs: Yes Questionnaire Thrive Questionnaire Date Thrive assessed: 05/23/24 I am a: Patient What is your living situation today?: I choose not to answer this question Within the past 12 months, did the food you bought not last and you didn't have the money to get more?: I choose not to answer this question Within the past 12 months, did you worry whether your food would run out before you got money to buy more?: I choose not to answer this question Do you have trouble paying for medicines?: I choose not to answer this question Do you have trouble getting transportation to medical appointments?: I choose not to answer this question Do you have trouble paying your heating and electricity bill?: I choose not to answer this question Do you have trouble taking care of your child, family member or friend?: I choose not to answer this question Do you have trouble with day-to-day activities such as bathing, preparing meals, shopping, managing finances, etc.?: I choose not to answer this question Are you currently unemployed and looking for a job?: I choose not to answer this question Are you interested in more education?: I choose not to answer this question Please select the resources that you would like help with: None Currently or been in a relationship where the following occur: I choose not to answer THRIVE Score: 0 CARLY-7 AMB Questionnaire CARLY-7 Date CARLY - 7 assessed: 05/01/24 Source: Developed by Drs. Ab Rosales, Ruba Barnes, Kash Edwards and colleagues, with an educational kristyn from [employer] across [employer]. Review of Systems Const Details: Const Denies chills, Denies fatigue, Denies fever(s), Reports headache(s) and Denies weakness ENT Reports as per HPI Card Denies chest pain, Denies lightheadedness, Denies dyspnea and Denies other (Palpitations) Resp Denies cough, Denies dyspnea, Denies wheezing and Denies other ( shortness of breath) GI Denies abdominal pain, Denies melena, Denies hematochezia, Denies change in bowel habits, Denies dyspepsia and Denies nausea Denies hematuria and Denies dysuria Musc Denies abnormal gait Skin/Breast Denies rash, Denies unusual bruising and Denies wounds Neuro Denies abnormal gait, Denies dizziness, Denies headache(s), Denies memory loss, Denies numbness, Denies Sensory deficit (Neuro), Denies tingling and Denies weakness Psych Denies anxiety, Denies depression, Denies memory loss Endo Denies cold intolerance, Denies fatigue, Denies heat intolerance, Denies po lydipsia and Denies polyuria Aller/Immun Denies wheezing Physical exam (Primary Care) Vital Signs: Last Vital Signs Temp 97.6 F 05/23/24 12:50 Pulse 62 05/23/24 12:50 Resp 16 05/23/24 12:50 BP 132/76 05/23/24 12:50 Pulse Ox 98 05/23/24 12:50 Oxygen Delivery Method Room Air 05/23/24 12:50 BMI result Body Mass Index 42.6 Tobacco/Smoking Status: Tobacco use Status Tobacco use date assessed 05/23/24 05/23/24 12:53 Patient Tobacco Use Status Current everyday Tobacco 05/23/24 12:48 Tobacco use type Cigarette 05/23/24 12:48 e-Cigarette/Vaping Use Never Used 05/23/24 12:48 Thrive Assessment: Date of Thrive Assessment Date Thrive assessed 05/23/24 05/23/24 12:48 Currently or been in a relationship where the following occur: I choose not to answer Const Other: General: no acute distress and well developed Nutritional Appearance: well nourished Orientation/consciousness: patient oriented x3 HENMT Head is normocephalic Bilateral ear canal and TM are normal Nasal turbinates and oropharynx are pink and moist Frontal and maxillary sinus tenderness with palpation No auricular or cervical lymphadenopathy Eyes General: appearance normal, both eyes and all related structures Pupils: Equal, round and reactive pupils present EOM: EOMs intact bilaterally Resp Effort & Inspection: normal respiratory effort Auscultation: clear to auscultation bilaterally Cardio Rate: regular rate Rhythm: regular rhythm Heart sounds: S1 normal heart sound present, S2 normal heart sound present, no gallops, no murmurs and no rubs GI Palpation (GI): No Abdominal aortic bruit present, Soft to palpation, nontender, No hepatosplenomegaly present and No Rebound tenderness present Auscultation: normal bowel sounds General: Yes no CVA tenderness Back/Spine/Pelvis Back: no CVA tenderness Cervical Spine: cervical ROM normal and No Cervical spine tenderness Thoracic/Lumbar Spine: thoraco-lumbar ROM normal, No pain with thoraco-lumbar ROM, No thoracic spinal tenderness and No lumbar spinal tenderness Extrem General: Yes normal to inspection, No edema and No calf tenderness Skin General: warm and dry. Normal skin color. Normal skin turgor Neuro General: patient oriented x3, gait normal and no focal neuro deficit Cranial nerves: Yes Equal, round and reactive pupils present Cognition (Neuro): normal cognition Gait exam (Neuro): Normal gait present Sensory Exam: No Sensory deficit (Neuro) Psych Appearance: grossly normal Affect: normal affect Attitude: cooperative Thought process: Normal thought process present Coding Level of Care Code Est Pt Level 3 (08018) Diagnoses Viral upper respiratory illness J06.9 Assessment & Plan Assessment & Plan (1) Viral upper respiratory illness: Code(s): J06.9 - Acute upper respiratory infection, unspecified Category: Medical Plan: Likely viral illness though possibly allergies Superimposed bacterial sinus infection is also likely Viral illness There is no antibiotic medication for viruses.? They must run their course.? Most average 5-7 days but 7-10 days is not uncommon and up to 14 days is still possible.? A cough is often the last symptom to resolve and this can last for weeks in some cases. Rest Hydrate well -? Drink plenty of fluids.? Especially water. Tylenol or ibuprofen for muscle aches, headache, fever/discomfort Zyrtec as prescribed Z-Andrew ordered. Advised to take as prescribed. Instructed on the risks, benefits, and potential adverse reactions of the medication Return for new or worsening symptoms Verbalized understanding and agreed with treatment plan. Medications: New azithromycin (Zithromax Z-Andrew) For 250 mg dose pack: take 500 mg today (day 1), then 250 mg for 4 days (days 2-5) PO 6 tabs 0RF Refilled pregabalin 200 mg PO TID 90 caps 0RF
[2024-05-23 12:50] VITALS: BP 132/76; PULSE 62; RESP 16; TEMP 36.4; O2SAT 98; BMI 42.6
== END 2024-05-23 13:19 | disposition home or self-care (01) ==
LOC: HO.HMCFM 12:42
PROVIDERS: PCP Nurse Practitioner Family; Visit Provider Nurse Practitioner Family
DX: J06.9 Acute upper respiratory infection, unspecified (principal)

== ENCOUNTER → 2024-05-23 12:42 | Outpatient (BNVA) | payer OTHER, SELFPAY | PROVIDERS: PCP Nurse Practitioner Family; Visit Provider Nurse Practitioner Family | DX: J06.9 Acute upper respiratory infection, unspecified (principal) | CPT/HCPCS: 99212 ==

== ENCOUNTER 2024-05-27 12:30 | Outpatient (AMB) | payer OTHER, SELFPAY ==
[2024-05-27 13:14] VITALS: BP 140/90; PULSE 66; TEMP 36.7; O2SAT 95; BMI 42.4
--- NOTE | 2024-05-27 13:14 | MHC.OFFWIV ---
Intake Vital Signs 05/27/24 13:14 Height 5 ft 2 in Weight 232 lb BMI 42.4 BP 140/90 H Blood Pressure Location Lt brachial Position Sitting Pulse 66 Pulse Source Pulse Oximeter Temp 98.1 F Temp Source Oral Pulse Oximetry (%) 95 Oxygen Delivery Method Room Air Intake Visit Reasons: EP- Rash from med. Intake Note: Pt is here today c/o rash all over body, pt thinks is due to a abx that she finished Patient Tobacco Use Status: Current everyday Tobacco user Allergies prednisone Allergy (Severe, Verified 05/27/24 13:38) Swelling azithromycin Allergy (Mild, Verified 05/27/24 13:45) Hives Medication List - Last Reconciled 05/27/24 by Araceli Motta, SENIOR PROFESSIONAL SERVICES CONSULTANT- bupropion HCl XL 300 mg PO DAILY 90 days calcitriol 0.25 mcg PO DAILY cetirizine (Zyrtec) 10 mg PO DAILY 30 days furosemide 20 mg PO DAILY hydroxyzine HCl 25 mg PO BEDTIME PRN 90 days levothyroxine 137 mcg PO DAILY 30 days meloxicam 15 mg PO DAILY 30 days omeprazole 20 mg PO BID pregabalin 200 mg PO TID rosuvastatin 20 mg PO BEDTIME 90 days sertraline 100 mg PO DAILY 90 days HPI HPI Comments History of Present Illness Details 58-YEAR-OLD FEMALE HERE TODAY WITH COMPLAINTS OF AN ITCHY RASH THAT DEVELOPED 24 HOURS AFTER STARTING AZITHROMYCIN OF WHICH SHE WAS PRESCRIBED TO TREAT A SINUS INFECTION. SHE TOOK 4 DAYS' WORTH OF MEDICATION. TODAY WOULD HAVE BEEN HER LAST DOSE BUT SHE DID NOT TAKE. SHE DEVELOPED A RASH ON BILATERAL LOWER EXTREMITIES AND BILAT ARMS AND HER ANTERIOR CHEST. THE RASH IS VERY ITCHY. SHE CONTINUES WITH HER SINUSITIS SYMPTOMS WITHOUT RELIEF. EXAM AWAKE ALERT ORIENTED, NO ACUTE DISTRESS SPEAKING IN FULL SENTENCES SINUS TENDERNESS BILAT MAXILLARY SINUSES, SINUS CONGESTION PLAN ADD AZITHROMYCIN TO ALLERGY LIST. ADVISED TO ALERT THE PHARMACY. DISCONTINUE AZITHROMYCIN IMMEDIATELY. START AUGMENTIN FOR SINUSITIS. THIS WILL BE GOOD COVERAGE WITH THE SKIN WELL IF SHE WERE TO CREATE A SECONDARY INFECTION FROM SCRATCHING. SHE CAN NOT TOLERATE ORAL STEROIDS. THEREFORE WE WILL PRESCRIBE HER A TOPICAL STEROID LOTION TO USE UNTIL THE RASH IS BETTER. SHE IS CURRENTLY TAKING ZYRTEC AND CAN NOT TOLERATE ANY OTHER ANTIHISTAMINES. ADVISED HER TO CONTINUE TAKING THE ZYRTEC. EDUCATED ON REASONS TO RETURN TO THE OFFICE OR SEEK ADDITIONAL CARE. [facility] Medical History Arthritis Back pain Thyroid disease GERD (gastroesophageal reflux disease) Depression Numbness Elevated cholesterol Fibromyalgia Chronic daily headache History of shingles Feeling grief Vitamin D deficiency Morbid obesity Surgical History History of back surgery Hx of neck surgery Hx of bariatric surgery History of carpal tunnel repair Hx of section Family History Mother Bone cancer Father Arthralgia Other Mental health disorder Substance abuse Social History Household Members: Children Household Members Other:: son Housing: House Are you a primary child care development specialist to a significant other at home: No 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) Alcohol intake: never Patient Tobacco Use Status: Current everyday Tobacco user Tobacco use type: Cigarette Cigarette Packs Per Day: 1 Cigarettes Per Day: 20.0 Years Smoked: 42 e-Cigarette/Vaping Use: Never Used Substance Use Type: Marijuana service: No Current occupational status: disabled Current occupational exposures/hazards: No Cognitive needs: No Hearing needs: No Vision needs: Yes Physical Exam Vital Signs: Last Vital Signs Temp 98.1 F 05/27/24 13:14 Pulse 66 05/27/24 13:14 BP 140/90 H 05/27/24 13:14 Pulse Ox 95 05/27/24 13:14 Oxygen Delivery Method Room Air 05/27/24 13:14 BMI result Body Mass Index 42.4 Assessment & Plan Assessment & Plan (1) Medication side effect: Code(s): T88.7XXA - Unspecified adverse effect of drug or medicament, initial encounter Plan: . (2) Hives: Code(s): L50.9 - Urticaria, unspecified Plan: . (3) Acute bacterial sinusitis: Code(s): J01.90 - Acute sinusitis, unspecified; B96.89 - Other specified bacterial agents as the cause of diseases classified elsewhere Plan: . Plan . Medications: New amoxicillin-pot clavulanate 875-125 mg 1 tab PO BID 7 days 14 tabs 0RF triamcinolone acetonide 0.1% TO LEGS AND ARMS UNTIL RASH CLEARED 1 appl topical BID 60 mL 2RF Coding Level of Care Code Est Pt Level 3 (75585) Diagnoses Medication side effect T88.7XXA Hives L50.9 Acute bacterial sinusitis J01.90; B96.89
== END 2024-05-27 13:53 | disposition home or self-care (01) ==
PROVIDERS: PCP Nurse Practitioner Family; Visit Provider Nurse Practitioner Family
DX: T88.7XXA Unspecified adverse effect of drug or medicament, initial encounter (principal); L50.9 Urticaria, unspecified; J01.90 Acute sinusitis, unspecified; B96.89 Other specified bacterial agents as the cause of diseases classified elsewhere

== ENCOUNTER → 2024-05-27 12:30 | Outpatient (BNVA) | payer OTHER, SELFPAY | PROVIDERS: PCP Nurse Practitioner Family | DX: L50.9 Urticaria, unspecified (principal); J01.90 Acute sinusitis, unspecified; B96.89 Other specified bacterial agents as the cause of diseases classified elsewhere | CPT/HCPCS: 99212 ==

== ENCOUNTER 2024-08-25 11:16 | Outpatient (REF) | payer OTHER, SELFPAY ==
--- OUTSIDE RECORDS SUMMARY | 2024-08-25 12:19 | XMS_ITS | Data Portability ---
Author Organization [employer] [employer] Address [address] [place] [address] Care Team Providers Care Moisture Meter Reader Name Role Phone HIM CCA OTHER Assessment No assessment recorded. Plan of Treatment Reminders Order Date Submit Date Provider Last Modified By Organization Details Last Modified Time Details Appointments None recorded. Lab None recorded. Referral None recorded. Procedures None recorded. Surgeries None recorded. Imaging None recorded. Medication Orders ketorolac 30 mg/mL (1 mL) injection solution 2022 023 [email or web address] Not available 3 12:40:55 levofloxaci n [address] [facility]acy #[id number], [address] [place], [address], 4 14:07:54 levofloxaci n 500 mg tablet 2023 024 [facility]/Pharmacy #[id number], [address] [place], [address], 4 14:07:56 Flonase Allergy Relief 50 mcg/actuati on nasal spray,suspe nsion 2023 024 [facility]/Pharmacy #[id number], [address] [place], [address], 4 14:07:56 Patient TargetsNo targets recorded. Patient InstructionsNo instructions recorded. Reason for Referral None Reported. Medical Equipment None Reported. Allergies Allergen ID Allergen Name Allergen Category Reaction Reaction Severity Criticality Documentation Date Start Date Code Code System Note Provider Name and Address Organization Details Recorded Time 34140 azithromy jeovany medicatio n Not available Not available Not available 07/15/2024 95089 RxNorm Not Available [employer] - production 4 12:23:58 7433 prednison e medicatio n Not available Not available Not available 05/16/2024 8640 Rx[facility] Not Available [facility] 4 03:37:27 Medications Name Sig Start Date Stop Date Status Note LastModified by Organization Details LastModified Time levothyroxin e 137 mcg tablet TAKE 1 TABLET BY MOUTH EVERY DAY FOR 30 DAYS active Not Available Not Available No t Available acetaminophe n 325 mg tablet TAKE 1 TABLET BY MOUTH EVERY 6 HOURS NEEDED FOR PAIN active Not Available Not Available No t Available clindamycin HCl 300 mg capsule TAKE 1 CAPSULE BY MOUTH THREE TIMES A DAY UNTIL FINISHED active Not Available Not Available No t Available cetirizine 10 mg tablet TAKE 1 TABLET BY MOUTH EVERY DAY active Not Available Not Available No t Available azithromycin 250 mg tablet TAKE 2 TABLETS BY MOUTH TODAY, THEN TAKE 1 TABLET DAILY FOR 4 DAYS DIRECTED active Not Available Not Available No t Available sumatriptan 100 mg tablet TAKE 1 TABLET ONCE W/ FUIDS AT ONSET OF MIGRAINE MAY REPEAT IN 2 HRS IF NEEDED MAX 2 TAB/24 HRS active Not Available Not Available No t Available meloxicam 15 mg tablet TAKE 1 TABLET BY MOUTH EVERY DAY active Not Available Not Available No t Available sertraline 100 mg tablet TAKE 1 TABLET BY MOUTH EVERY DAY active Not Available Not Available No t Available ketorolac 30 mg/mL (1 mL) injection solution Inject 1 mL every 6 hours by intramuscul ar route. 2022 active Not Available Not Available Not Avai lable ferrous sulfate 325 mg (65 mg iron) tablet TAKE 1 TABLET BY MOUTH EVERY DAY FOR 30 DAYS active Not Available Not Available No t Available hydroxyzine HCl 25 mg tablet TAKE 1 TABLET BY MOUTH EVERY DAY AT BEDTIME NEEDED FOR INSOMNIA active Not Available Not Available No t Available furosemide 20 mg tablet TAKE 1 TABLET BY MOUTH EVERY DAY active Not Available Not Available No t Available ergocalcifer ol (vitamin D2) 1,250 mcg (50,000 unit) capsule TAKE 1 CAPSULE BY ORAL ROUTE ONCE A WEEK FOR 90 DAYS active Not Available Not Available Not Available triamcinolon e acetonide 0.1 % lotion APPLY TWICE DAILY TO LEGS AND ARMS UNTIL RASH CLEARED active Not Available Not Available No t Available levofloxacin 500 mg tablet TAKE 1 TABLET EVERY 24 HOURS BY ORAL ROUTE FOR 6 DAYS. active Not Available Not Available Not Available fluticasone propionate 50 mcg/actuatio n nasal spray,suspen mallory SPRAY 1 SPRAY NASALLY EVERY DAY FOR 7 DAYS active Not Available Not Available N ot Available calcitriol 0.25 mcg capsule TAKE 1 CAPSULE BY MOUTH EVERY DAY active Not Available Not Available No t Available amoxicillin 875 mg-potassium clavulanate 125 mg tablet TAKE 1 TABLET BY MOUTH 2 TIMES A DAY FOR 7 DAYS active Not Available Not Available N ot Available rosuvastatin 20 mg tablet TAKE 1 TABLET BY MOUTH AT BEDTIME active Not Available Not Available No t Available bupropion HCl XL 300 mg 24 hr tablet, extended release TAKE 1 TABLET BY MOUTH DAILY active Not Available Not Available Not Available pregabalin 100 mg capsule TAKE 1 CAPSULE MID-DAY (WITH 200MG TWICE A DAY) active Not Available Not Available No t Available pregabalin 200 mg capsule TAKE 1 CAPSULE BY MOUTH THREE TIMES A DAY active Not Available Not Available Not Available Vitals Date Recorded Respiratory rate Body temperature Oxygen saturation Oxygen saturation in Arterial blood by Pulse oximetry Body weight Heart rate Systolic blood pressure Diastolic blood pressure Provider Name and Address Organization Details Last Updated DateTime 4 16 /min 98.5 [degF] 98 % 98 % 78220.2 4 g 74 /min 148 mm[Hg] 98 mm[Hg] Not Available [employer] - production 4 14:05:02 Date Recorded Heart rate Body height Body weight Respiratory rate Oxygen saturation Oxygen saturation in Arterial blood by Pulse oximetry Body temperature Systolic blood pressure Diastolic blood pressure Provider Name and Address Organization Details Last Updated DateTime 3 82 /min 152.4 cm 28642.4 g 14 /min 96 % 96 % 97.4 [degF] 143 mm[Hg] 88 mm[Hg] Not Available [employer] - [employer] 3 12:26:50 Social History None recorded. Functional Status None recorded. Mental Status None recorded. Family History Nothing Reported. Medical History No medical history recorded. Gynecological HistoryNo gynecological history recorded. Obstetrics History GPAL:G 0 P 0 0 0 0 Past Encounters Encounter ID Performer Location Encounter Start Date Encounter Closed Date Diagnosis/Indication Diagnosis SNOMED-CT Code Diagnosis ICD10 Code Diagnosis Note [id number] Daily Gillespie MD [facility] - [facility] [address] [place] [phone] 10/28/2022 12:26:48 11/03/2022 10:03:40 Chronic pain syndrome 020609933 G89.4 56 year old female with a history of fibromyalg ia and chronic pain syndrome, being evaluated for poorly controlled pain of her legs and back. Patient reports her current medication regimen is under revision due to some conflicts with insurance coverage of her lyrica. Currently takes ibuprofen with minimal benefit. Wondering what else we can give her. She is able to tolerate PO, and able to care for herself at home despite the pain. Exam notable for normal vital signs, grossly normal neuro exam. Presentati on consistent with poorly controlled chronic pain syndrome, in the setting of not having refills of her Lyrica. No red flags, offered toradol IM although acknowledg ed this may be of limited benefit for this type of pain. Continue FU outpatient team to settle issues with dispensing her regular pain regimen. [id number] BHUMI GAMEZ MD Main - [address] [phone] 07/15/2024 14:05:00 07/18/2024 20:42:18 Sinusitis 11255275 J32.9 Evaluation in the field was performed by my furnace mechanic helper colleague, as noted above, I provided real-time direction and supervisio n for this visit. The evaluation revealed a 58-year-ol d female with a history of fibromyalg ia, presenting with complaints of nasal congestion and sinus pressure. The patient was evaluated by her PCP over a month ago for similar symptoms and treated with azithromyc in. A rash developed on her legs, and she was subsequent ly transition ed to amoxicilli n with minimal improvemen t in symptoms. The patient reports ongoing cold-like symptoms, including head pressure, headache, facial and eye swelling, and watery eyes. She also has a sore throat and experience s some dizziness with rapid movements. She denies having fever, shortness of breath, cough, palpitatio ns, or chest pain. Vital signs were unremarkab le.Physica l examinatio n revealed nasal congestion and facial/sin us tenderness .Allergies reviewed. Impression :Acute on Chronic Sinus Infection Plan:Pt was advised to use humidifier s in the home to maintain moisture in the air, which may help reduce sinus pressure.P t was encouraged to continue cetirizine for symptom management .A prescripti on for Flonase (fluticaso ne nasal spray) was sent to her pharmacy for short-term relief of nasal congestion .Recommend ed acetaminop hen or ibuprofen for headache and sinus pressure relief.A prescripti on for Levofloxac in 500 mg daily for 7 days was sent to her pharmacy. The first dose was administer ed by the furnace mechanic helper. Recommende d follow-up with the patient's PCP or an ENT specialist if symptoms persist beyond 10 days or worsen, to rule out complicati ons such as chronic sinusitis or sinus polyps.Ins tructed the patient to seek prompt medical evaluation if red flags such as high fever, facial swelling, or worsening pain occur. Primary care, consider__ _ Dispositio n: We discussed the diagnostic uncertaint y of home visits and the risk associated with this. In this case, the patient and I felt this to be an acceptable and reasonable amount of risk given the benefit of avoiding an ED visit. We discussed the need to seek care urgently/e mergently in the setting of any new or worsening serious symptoms, particular ly such as high fever, facial swelling, or worsening pain occur. Health Concerns Section Related Observation LastModified by Organization Detai ls LastModified Time None Recorded Concern Status LastModified by Organization Details LastModified Time None Recorded Advance Directives Directive None Recorded Payers Encounter Date Sequence Insurance Name Policy Number Policy Sanchez Covered Member ID Sanchez Member ID Guarantor Name 10/28/2022 1 [facility] - DOS PRIOR TO 2022 - DUAL ELIGIBLE (MEDICARE REPLACEMENT/AD VANTAGE - HMO) Radha Duenas [id number] Radha Duenas 07/15/2024 1 [facility] - DOS ON OR AFTER 2022 - DUAL ELIGIBLE - [facility] OPTIONS AND ONE CARE (MEDICARE REPLACEMENT/AD VANTAGE - HMO) Radha Duenas [id number] Radha Duenas Notes Date Note Type Note Provider Name and Address Organization Details Recorded Time 10/28/2022 text/html HPI: Pia is a 56 you female with history of Fibromyalgia, Anxiety, GERD, Headaches, Hypothyroidism, seasonal allergies, Marijuana use, Tobacco dependence, MDD, age related disability and chronic migraines. Allergy to Prednisone (swelling). MSR transferred call to this CRU reporting that Mbr was having pain in her legs and back and has not been able to get her medication refilled. Connected with Mbr and she stated that she has pain all over from her Fibromyalgia and has been unable to reach her Provider for 5 days to get her Lyrica refilled. Last dose of Lyrica taken was last or Wednesday per Mbr. Mbr stated she is also having some numbness in both her feet. Instructed Mbr to go to ER and she declined. Offered [facility] and she agreed but also instructed Mbr to call Prescribing Provider to have them order the Lyrica as applicable. Mbr agreed to plan. Confirmed address and phone numbers same as in [facility] and [facility]. Best number to reach Mbr is [phone]. Sent [facility] request in for today and sent activity to CP alerting CP about this call and TE. .................. .................. .................. .................. .................. .................. .................. ............... [facility] Nursing Assessment: Comments: CRC RN DID NOT NEED FURTHER INFO Daily Gillespie MD [address] [place] [address],[address], [place], [address], [employer] 10/28/2022 12:41:01 07/15/2024 text/html CRC Nurse Triage Notes (Ana Pham - RN): Chief Complaints: Common cold symptoms, Headache, Swelling PMH: Fibromyalgia, Chronic Back Pain, Obesity Comments: Glove Cleaner verified the member's name//address and phone number. Member calling in to report s/s of sinus infection. Evaluated to by PCP on >1mth ago for s/s, was treated with azithromycin. Rash developed on legs. Transitioned to amoxicillin w/ little improvement in symptoms.Member reports ongoing issues w/ cold like symptoms. Head pressure/headache, swelling to face/eyes, watery eyes. +Sore throat. Some dizziness w/ fast movement, educations on fall risks reviewed. Denies fevers at home. Denies SOB or cough. Denies heart palpitations or chest pain. Education provided on the response time and the member was advised to monitor reported s/s and seek emergency treatment if needed. .................. .................. .................. .................. .................. .................. .................. ............... Traveling Buyer Note From Saman Judge: Pt co continued NC and sinus pressure. Pt finished antibiotics amox 2 weeks ago. Pt sts mucus is clear in color. Pt sts has off and on headache as well. Pt denies cough , fever , dizziness, NVD. Baseline vitals assessed WNL, afebrile, lungs clear. [facility] Jesus contacted and 500mg levo po , right med date dose and route , RX called in for levo and Flonase. Pt advised if not symptom free after levo round , to contact pcp to see ENT specialist. Pt education on signs indicating the ER. .................. .................. .................. .................. .................. .................. .................. ............... [facility] Consulted: Bhumi Gamez .................. .................. .................. .................. .................. .................. .................. ............... Disposition: Fulfilled BHUMI GAMEZ MD [address] [facility],[address], [place], [address], [place] - [employer] 07/15/2024 22:42:43 OBGyn Episode No OBEpisode recorded.
[2024-08-25 14:23] LABS: Hematocrit 40.1 % (37.0-47.0); Hemoglobin 13.3 g/dl (12.0-16.0); Mean Corpuscular HGB Conc 33.2 g/dl (31.0-35.0); Mean Corpuscular Hemoglobin 31.2 pg (27.0-33.0); Mean Corpuscular Volume 94.1 fL (80.0-98.0); Mean Platelet Volume 10.8 fL (9.4-12.3); Platelet Count 206 X10*3/uL (160-400); Red Blood Count 4.26 X10*6/uL (4.20-5.50); Red Cell Distribution Width 15.5 % (11.0-16.0)
[2024-08-25 15:00] LABS: Cholesterol 129 mg/dL (<200); HDL Cholesterol 52 mg/dL (>40); LDL Cholesterol Calculated 64 mg/dL (<100); Triglycerides 65 mg/dL (<150)
== END 2024-08-25 11:17 | disposition home or self-care (01) ==
LOC: HO.WFDLDS 11:16
PROVIDERS: Visit Provider Nurse Practitioner Family
DX: E78.00 Pure hypercholesterolemia, unspecified (principal); D50.9 Iron deficiency anemia, unspecified
CPT/HCPCS: 36415; 80061; 85027

== ENCOUNTER 2024-08-29 12:27 | Outpatient (AMB) | payer OTHER, SELFPAY ==
--- NOTE | 2024-08-29 12:31 | MHC.PC.OV ---
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: No Is last menstrual period known: No Post menopausal: No Patient : No Allergies prednisone Allergy (Severe, Verified 08/29/24 13:00) Swelling azithromycin Allergy (Mild, Verified 08/29/24 13:00) Hives Medication List - Last Reconciled 08/29/24 by Kiara Winslow CNP bupropion HCl XL 300 mg PO DAILY 90 days calcitriol 0.25 mcg PO DAILY cetirizine (Zyrtec) 10 mg PO DAILY 30 days hydroxyzine HCl 25 mg PO BEDTIME PRN 90 days levothyroxine 137 mcg PO DAILY 30 days meloxicam 15 mg PO DAILY 30 days omeprazole 20 mg PO BID pregabalin 200 mg PO TID rosuvastatin 20 mg PO BEDTIME 90 days sertraline 100 mg PO DAILY 90 days Tobacco use date assessed: 08/29/24 Dental Screening Dental Screen Date: 08/29/24 Did you have a dental visit in the last 12 months?: Yes Did you have a dental problem in the last 6 months where you did not have access to dental care?: No Was dental information given to patient?: Patient has dentist HPI HPI Comments History of Present Illness Details 58-year-old female presents for hyperlipidemia, anxiety, and depression follow-up. She admits to taking her medications as prescribed without adverse reactions. She notes that her mood is generally controlled. She sometimes feels frustrated not being able to accomplish tasks due to chronic pain. She has jury duty schedule on 10/18/2024 and requests a letter of excuse due to chronic pain. She requests Physical therapy referral for lower extremity strengthening. [facility] Medical History Arthritis Back pain Thyroid disease GERD (gastroesophageal reflux disease) Depression Numbness Elevated cholesterol Fibromyalgia Chronic daily headache History of shingles Feeling grief Vitamin D deficiency Morbid obesity Surgical History History of back surgery Hx of neck surgery Hx of bariatric surgery History of carpal tunnel repair Hx of section Family History Mother Bone cancer Father Arthralgia Other Mental health disorder Substance abuse Social History Household Members: Children Household Members Other:: son Housing: House Are you a primary urgent care nurse practitioner to a significant other at home: No Do you presently have visiting nurse or other home services: Yes (chip drier) Alcohol intake: never Patient Tobacco Use Status: Current everyday Tobacco user Tobacco use type: Cigarette Cigarette Packs Per Day: 1 Cigarettes Per Day: 20.0 Years Smoked: 42 e-Cigarette/Vaping Use: Never Used Substance Use Type: Marijuana service: No Current occupational status: disabled Current occupational exposures/hazards: No Cognitive needs: No Hearing needs: No Vision needs: Yes Questionnaire PHQ-9 Over the last 2 weeks, how often have you been bothered by any of the following problems? 1. Little interest or pleasure in doing things: several days 2. Feeling down, depressed, or hopeless: several days 3. Trouble falling or staying asleep, or sleeping too much: several days 4. Feeling tired or having little energy: several days 5. Poor appetite or overeating: several days 6. Feeling bad about yourself - or that you are a failure or have let yourself or your family down: not at all 7. Trouble concentrating on things, such as reading the newspaper or watching television: several days 8. Moving or speaking so slowly that other people could have noticed. Or the opposite - being so fidgety or restless that you have been moving around a lot more than usual: several days 9. Thoughts that you would be better off or of hurting yourself in some way: not at all Total score: 7 Depression Screening Interpretation: Positive Depression Screening Follow-up: Existing condition and In treatment Depression Screening Done: Yes 71610 - PHQ-9 Billing: Yes Source: Developed by Drs. Ab Rosales, Ruba Barnes, Kash Edwards and colleagues, with an educational kristyn from [employer]. Thrive Questionnaire Date Thrive assessed: 08/29/24 I am a: Patient What is your living situation today?: I have a steady place to live Within the past 12 months, did the food you bought not last and you didn't have the money to get more?: Sometimes True Within the past 12 months, did you worry whether your food would run out before you got money to buy more?: Sometimes True Do you have trouble paying for medicines?: No Do you have trouble getting transportation to medical appointments?: No Do you have trouble paying your heating and electricity bill?: I choose not to answer this question Do you have trouble taking care of your child, family member or friend?: No Do you have trouble with day-to-day activities such as bathing, preparing meals, shopping, managing finances, etc.?: No Are you currently unemployed and looking for a job?: I choose not to answer this question Are you interested in more education?: I choose not to answer this question Please select the resources that you would like help with: None Currently or been in a relationship where the following occur: I choose not to answer THRIVE Score: 2 AUDIT C Alcohol Use Questionnaire (AUDIT-C) 1. How often do you have a drink containing alcohol?: Never Total Score: 0 CARLY-7 AMB Questionnaire CARLY-7 Date CARLY - 7 assessed: 08/29/24 Feeling nervous, anxious, or on edge: 1 = Several days Not being able to stop or control worryin = Several days Worrying too much about different things: 1 = Several days Trouble relaxin = Several days Being so restless that it is hard to sit still: 1 = Several days Becoming easily annoyed or irritable: 1 = Several days Feeling afraid as if something awful might happen: 1 = Several days Total CARLY-7 score (0-4 normal; 5-9 mild; 10-14 moderate; 15-21 severe): 7 Source: Developed by Drs. Ab Rosales, Ruba Barnes, Kash Edwards and colleagues, with an educational kristyn from [employer]. CARLY-7 Assessment Billing CARLY-7 Assessment Tool: CARLY-7 Assessment 52873 Review of Systems Const Details: Const Denies chills, Denies fatigue, Denies fever(s), Denies headache(s) and Denies weakness ENT Denies dizziness and Denies headache(s) Card Denies chest pain, Denies lightheadedness, Denies dyspnea and Denies other (Palpitations) Resp Denies cough, Denies dyspnea, Denies wheezing and Denies other ( shortness of breath) GI Denies abdominal pain, Denies melena, Denies hematochezia, Denies change in bowel habits, Denies dyspepsia and Denies nausea Denies hematuria and Denies dysuria Musc Reports back pain, Denies abnormal gait, Denies numbness and Denies tingling Skin/Breast Denies rash, Denies unusual bruising and Denies wounds Neuro Denies abnormal gait, Denies dizziness, Denies headache(s), Denies memory loss, Denies numbness, Denies Sensory deficit (Neuro), Denies tingling and Denies weakness Psych Denies anxiety, Denies depression, Denies memory loss Endo Denies cold intolerance, Denies fatigue, Denies heat intolerance, Denies polydipsia and Denies polyuria Aller/Immun Denies wheezing Physical exam (Primary Care) Vital Signs: Last Vital Signs Temp 98.2 F 08/29/24 12:50 Pulse 68 08/29/24 12:50 Resp 16 08/29/24 12:50 BP 130/80 08/29/24 13:06 Pulse Ox 96 08/29/24 12:50 Oxygen Delivery Method Room Air 08/29/24 12:50 BMI result Body Mass Index 42.4 Tobacco/Smoking Status: Tobacco use Status Tobacco use date assessed 08/29/24 08/29/24 12:34 Patient Tobacco Use Status Current everyday Tobacco 08/29/24 12:34 Tobacco use type Cigarette 08/29/24 12:34 e-Cigarette/Vaping Use Never Used 08/29/24 12:34 PHQ-9: PHQ-9 Score PHQ-9: Total score 7 08/29/24 13:02 Depression Screening Interpretation: Positive Depression Screening Follow-up: Existing condition and In treatment Thrive Assessment: Date of Thrive Assessment Date Thrive assessed 08/29/24 08/29/24 12:34 Currently or been in a relationship where the following occur: I choose not to answer Const Other: General: no acute distress and well developed Nutritional Appearance: well nourished Orientation/consciousness: patient oriented x3 [facility] Head: Yes normocephalic and Yes atraumatic Eyes General: appearance normal, both eyes and all related structures Pupils: Equal, round and reactive pupils present EOM: EOMs intact bilaterally Resp Effort & Inspection: normal respiratory effort Auscultation: clear to auscultation bilaterally Cardio Rate: regular rate Rhythm: regular rhythm Heart sounds: S1 normal heart sound present, S2 normal heart sound present, no gallops, no murmurs and no rubs GI Palpation (GI): No Abdominal aortic bruit present, Soft to palpation, nontender, No hepatosplenomegaly present and No Rebound tenderness present Auscultation: normal bowel sounds General: Yes no CVA tenderness Back/Spine/Pelvis Back: no CVA tenderness Cervical Spine: cervical ROM normal and No Cervical spine tenderness Thoracic/Lumbar Spine: thoraco-lumbar ROM normal, No pain with thoraco-lumbar ROM, No thoracic spinal tenderness and + lumbar spinal tenderness Extrem General: Yes normal to inspection, No edema and No calf tenderness Skin General: warm and dry. Normal skin color. Normal skin turgor Neuro General: patient oriented x3, gait normal and no focal neuro deficit Cranial nerves: Yes Equal, round and reactive pupils present Cognition (Neuro): normal cognition Gait exam (Neuro): Normal gait present Sensory Exam: No Sensory deficit (Neuro) Psych Appearance: grossly normal Affect: normal affect Attitude: cooperative Thought process: Normal thought process present Coding Level of Care Code Est Pt Level 4 (58140) Diagnoses High cholesterol E78.00 Anxiety and depression F41.9; F32.A Lumbar radiculopathy M54.16 Additional Codes CARLY-7 Assessment Billing - CARLY-7 Assessment Tool: CARLY-7 Assessment 38026 ([id number]) PHQ-9 - 65253 - PHQ-9 Billing: Yes ([id number]) Assessment & Plan Assessment & Plan (1) High cholesterol: Code(s): E78.00 - Pure hypercholesterolemia, unspecified Category: Medical Plan: Recent triglycerides, total cholesterol, LDL, and HDL levels are normal, 65, 129, 64, and 52 respectively. Continue current treatment regimen. Will monitor lipid panel levels every 6-12 months. Verbalized understanding and agreed with the treatment plan. (2) Anxiety and depression: Code(s): F41.9 - Anxiety disorder, unspecified; F32.A - Depression, unspecified Category: Medical Plan: Anxiety and depressive symptoms have generally controlled. Continue current treatment regimen. Follow-up with worsening or new symptoms. Verbalized understanding and agreed with treatment plan. (3) Lumbar radiculopathy: Code(s): M54.16 - Radiculopathy, lumbar region Category: Medical Plan: Chronic low back pain. Continue current treatment regimen. Note given to excuse from jury duty. Referred to physical therapy for lower extremity strengthening. Follow-up with worsening or new symptoms. Verbalized understanding and agreed with treatment plan. Orders: Orders PT Evaluation and Treatment Today M54.16 - Radiculopathy, lumbar region
[2024-08-29 12:50] VITALS: BP 146/68; PULSE 68; RESP 16; TEMP 36.8; O2SAT 96; BMI 42.4
[2024-08-29 13:06] VITALS: BP 130/80
== END 2024-08-29 13:19 | disposition home or self-care (01) ==
PROVIDERS: PCP Nurse Practitioner Family; Visit Provider Nurse Practitioner Family
DX: E78.00 Pure hypercholesterolemia, unspecified (principal); F41.9 Anxiety disorder, unspecified; F32.A Depression, unspecified; M54.16 Radiculopathy, lumbar region

== ENCOUNTER → 2024-08-29 12:27 | Outpatient (BNVA) | payer OTHER, SELFPAY | PROVIDERS: PCP Nurse Practitioner Family; Visit Provider Nurse Practitioner Family | DX: E78.00 Pure hypercholesterolemia, unspecified (principal); F41.9 Anxiety disorder, unspecified; F32.A Depression, unspecified; M54.16 Radiculopathy, lumbar region | CPT/HCPCS: 96127; 99212 ==

== ENCOUNTER 2025-01-30 15:29 | Outpatient (AMB) | payer OTHER, SELFPAY ==
--- NOTE | 2025-01-30 15:31 | A.OFFPC_ITS ---
Vital Signs 01/30/25 15:37 Height 5 ft 2 in Weight 219 lb BMI 40.1 BP 138/73 Blood Pressure Location Lt brachial Position Sitting Respiration 16 Pulse 65 Pulse Source Pulse Oximeter Temp 98.7 F Temp Source Oral Pulse Oximetry (%) 98 Oxygen Delivery Method Room Air Intake Visit Reasons: anxiety, depression Intake Note: patient here for follow up on anxiety and depression Speech Language Pathologist Assistant Required: No Is last menstrual period known: No Post menopausal: No Patient : No Allergies prednisone Allergy (Severe, Verified 01/30/25 15:36) Swelling azithromycin Allergy (Mild, Verified 01/30/25 15:36) Hives Tobacco use date assessed: 01/30/25 Dental Screening Dental Screen Date: 01/30/25 Did you have a dental visit in the last 12 months?: Yes Did you have a dental problem in the last 6 months where you did not have access to dental care?: No Was dental information given to patient?: Patient has dentist HPI HPI Comments History of Present Illness Details 59-year-old male presents for anxiety an d depression follow-up. She admits to taking her medications as prescribed without adverse reactions. She notes that he mood has been stable. She reports persistent, chronic generalized body aches and sore/achy low back pain. She was followed by [facility] Rheumatology and neuro spine. She is not interested in opiates for pain management. She is also not interested in physical therapy or pain management referral. She is transferring care with Cherie Eli as she feels comfortable with a female provider. [facility] Medical History Arthritis Back pain Thyroid disease GERD (gastroesophageal reflux disease) Depression Numbness Elevated cholesterol Fibromyalgia Chronic daily headache History of shingles Feeling grief Vitamin D deficiency Morbid obesity Surgical History History of back surgery Hx of neck surgery Hx of bariatric surgery History of carpal tunnel repair Hx of section Family History Mother Bone cancer Father Arthralgia Other Mental health disorder Substance abuse Social History Household Members: Children Household Members Other:: son Housing: House Are you a primary career placement services counselor to a significant other at home: No Do you presently have visiting nurse or other home services: Yes (wire coater) Alcohol intake: never Patient Tobacco Use Status: Current everyday Tobacco user Tobacco use type: Cigarette Cigarette Packs Per Day: 1 Cigarettes Per Day: 20.0 Years Smoked: 42 e-Cigarette/Vaping Use: Never Used Substance Use Type: Marijuana service: No Current occupational status: disabled Current occupational exposures/hazards: No Cognitive needs: No Hearing needs: No Vision needs: Yes Questionnaire PHQ-9 Over the last 2 weeks, how often have you been bothered by any of the following problems? 1. Little interest or pleasure in doing things: several days 2. Feeling down, depressed, or hopeless: several days 3. Trouble falling or staying asleep, or sleeping too much: several days 4. Feeling tired or having little energy: several days 5. Poor appetite or overeating: several days 6. Feeling bad about yourself - or that you are a failure or have let yourself or your family down: several days 7. Trouble concentrating on things, such as reading the newspaper or watching television: not at all 8. Moving or speaking so slowly that other people could have noticed. Or the opposite - being so fidgety or restless that you have been moving around a lot more than usual: not at all 9. Thoughts that you would be better off or of hurting yourself in some way: not at all Total score: 6 Depression Screening Interpretation: Positive Depression Screening Follow-up: Existing condition and In treatment Depression Screening Done: Yes 40263 - PHQ-9 Billing: Yes Source: Developed by Drs. Ab Rosales, Ruba Barnes, Kash Edwards and colleagues, with an educational kristyn from [employer] Thrive Questionnaire Date Thrive assessed: 08/29/24 I am a: Patient What is your living situation today?: I have a steady place to live Within the past 12 months, did the food you bought not last and you didn't have the money to get more?: Sometimes True Within the past 12 months, did you worry whether your food would run out before you got money to buy more?: Sometimes True Do you have trouble paying for medicines?: No Do you have trouble getting transportation to medical appointments?: No Do you have trouble paying your heating and electricity bill?: I choose not to answer this question Do you have trouble taking care of your child, family member or friend?: No Do you have trouble with day-to-day activities such as bathing, preparing meals, shopping, managing finances, etc.?: No Are you currently unemployed and looking for a job?: I choose not to answer this question Are you interested in more education?: I choose not to answer this question Please select the resources that you would like help with: None Currently or been in a relationship where the following occur: I choose not to answer THRIVE Score: 2 CARLY-7 AMB Questionnaire CARLY-7 Date CARLY - 7 assessed: 01/30/25 Feeling nervous, anxious, or on edge: 1 = Several days Not being able to stop or control worryin = Several days Worrying too much about different things: 1 = Several days Trouble relaxin = Several days Being so restless that it is hard to sit still: 0 = Not at all Becoming easily annoyed or irritable: 0 = Not at all Feeling afraid as if something awful might happen: 1 = Several days Total CARLY-7 score (0-4 normal; 5-9 mild; 10-14 moderate; 15-21 severe): 5 Source: Developed by Drs. Ab Rosales, Ruba Barnes, Kash Edwards and colleagues, with an educational kristyn from [employer] CARLY-7 Assessment Billing CARLY-7 Assessment Tool: CARLY-7 Assessment 93548 Review of Systems Const Details: Const Denies chills, Denies fatigue, Denies fever(s), Denies headache(s) and Denies weakness ENT Denies dizziness and Denies headache(s) Card Denies chest pain, Denies lightheadedness, Denies dyspnea and Denies other (Palpitations) Resp Denies cough, Denies dyspnea, Denies wheezing and Denies other ( shortness of breath) GI Denies abdominal pain, Denies melena, Denies hematochezia, Denies change in bowel habits, Denies dyspepsia and Denies nausea Denies hematuria and Denies dysuria Musc Reports as per HPI Skin/Breast Denies rash, Denies unusual bruising and Denies wounds Neuro Denies abnormal gait, Denies dizziness, Denies headache(s), Denies memory loss, Denies numbness, Denies Sensory deficit (Neuro), Denies tingling and Denies weakness Psych Denies anxiety, Denies depression, Denies memory loss Endo Denies cold intolerance, Denies fatigue, Denies heat intolerance, Denies polydipsia and Denies polyuria Aller/Immun Denies wheezing Physical exam (Primary Care) Vital Signs: Last Vital Signs Temp 98.7 F 01/30/25 15:37 Pulse 65 01/30/25 15:37 Resp 16 01/30/25 15:37 BP 138/73 01/30/25 15:37 Pulse Ox 98 01/30/25 15:37 Oxygen Delivery Method Room Air 01/30/25 15:37 BMI result Body Mass Index 40.1 Tobacco/Smoking Status: Tobacco use Status Tobacco use date assessed 01/30/25 07 15:40 Patient Tobacco Use Status Current everyday Tobacco 01/30/25 15:33 Tobacco use type Cigarette 01/30/25 15:33 e-Cigarette/Vaping Use Never Used 01/30/25 15:33 PHQ-9: PHQ-9 Score PHQ-9: Total score 6 01/30/25 15:40 Depression Screening Interpretation: Positive Depression Screening Follow-up: Existing condition and In treatment Thrive Assessment: Date of Thrive Assessment Date Thrive assessed 08/29/24 01/30/25 15:33 Currently or been in a relationship where the following occur: I choose not to answer Const Other: General: no acute distress and well developed Nutritional Appearance: well nourished Orientation/consciousness: patient oriented x3 [facility] Head: Yes normocephalic and Yes atraumatic Eyes General: appearance normal, both eyes and all related structures Pupils: Equal, round and reactive pupils present EOM: EOMs intact bilaterally Resp Effort & Inspection: normal respiratory effort Auscultation: clear to auscultation bilaterally Cardio Rate: regular rate Rhythm: regular rhythm Heart sounds: S1 normal heart sound present, S2 normal heart sound present, no gallops, no murmurs and no rubs GI Palpation (GI): No Abdominal aortic bruit present, Soft to palpation, nontender, No hepatosplenomegaly present and No Rebound tenderness present Auscultation: normal bowel sounds General: Yes no CVA tenderness Back/Spine/Pelvis Back: no CVA tenderness Cervical Spine: cervical ROM normal and No Cervical spine tenderness Thoracic/Lumbar Spine: thoraco-lumbar ROM normal, No pain with thoraco-lumbar ROM, No thoracic spinal tenderness and lumbar spinal tenderness Extrem General: Yes normal to inspection, No edema and No calf tenderness Skin General: warm and dry. Normal skin color. Normal skin turgor Neuro General: patient oriented x3, gait normal and no focal neuro deficit Cranial nerves: Yes Equal, round and reactive pupils present Cognition (Neuro): normal cognition Gait exam (Neuro): Normal gait present Sensory Exam: No Sensory deficit (Neuro) Psych Appearance: grossly normal Affect: normal affect Attitude: cooperative Thought process: Normal thought process present Coding Level of Care Code Est Pt Level 3 (14507) Diagnoses Anxiety and depression F41.9; F32.A Chronic pain syndrome G89.4 Laboratory tests ordered as part of a complete physical exam (CPE) Z00.00 Additional Codes CARLY-7 Assessment Billing - CARLY-7 Assessment Tool: CARLY-7 Assessment 27053 ([id number]) PHQ-9 - 13601 - PHQ-9 Billing: Yes ([id number]) Assessment & Plan Assessment & Plan (1) Anxiety and depression: Code(s): F41.9 - Anxiety disorder, unspecified; F32.A - Depression, unspecified Category: Medical Plan: Mood is stable. PHQ-9 score revealed mild depression. CARLY-7 score is normal. Continue current treatment regimen. Routine exercise encouraged. Will continue to monitor. Verbalized understanding and agreed with the plan. (2) Chronic pain syndrome: Code(s): G89.4 - Chronic pain syndrome Category: Medical Plan: She reports persistent, chronic generalized body aches and sore/achy low back pain. She was followed by [facility] Rheumatology and neuro spine. She is not interested in opiates for pain management. She is also not interested in physical therapy or pain management referral. She is transferring care with Cherie Eli as she feels comfortable with a female provider. Lumbar spine tenderness to palpation. Continue current treatment regimen. Perform lab working follow-up for an extended physical exam with Cherie Eli. Return sooner with symptoms or concerns. Verbalized understanding and agreed with the plan. (3) Laboratory tests ordered as part of a complete physical exam (CPE): Code(s): Z00.00 - Encounter for general adult medical examination without abnormal findings Category: Medical Plan: Fasting labs ordered as part of a complete physical exam. Advised to fast for at least 10 hours before getting labs drawn. May drink water Verbalized understanding and agreed with treatment plan. Orders: Orders Microalbumin, Random (w Creat) Today Z00.00 - Encounter for general adult medical examination without abnormal findings UA CC w/rflx Micro + Cult Today Z00.00 - Encounter for general adult medical examination without abnormal findings Comprehensive [place]. Panel Fast Today Z00.00 - Encounter for general adult medical examination without abnormal findings Vitamin D 25-OH Total Today Z00.00 - Encounter for general adult medical examination without abnormal findings
[2025-01-30 15:37] VITALS: BP 138/73; PULSE 65; RESP 16; TEMP 37.1; O2SAT 98; BMI 40.1
--- OUTSIDE RECORDS SUMMARY | 2025-01-30 16:31 | XMS_ITS | Data Portability ---
Author Organization [employer] [facility], [facility] Address [address] [place] [address] Care Team Providers Care Web Content Coordinator Name Role Phone HIM CCA OTHER Assessment No assessment recorded. Plan of Treatment Reminders Order Date Submit Date Provider Last Modified By Organization Details Last Modified Time Details Appointments None recorded. Lab None recorded. Referral None recorded. Procedures None recorded. Surgeries None recorded. Imaging None recorded. Medication Orders levofloxaci n 500 mg tablet 2023 024 [facility]acy #[id number], [address] [place], [address], 4 14:07:54 levofloxaci n 500 [address] tablet [address] [facility]/Pharmacy #[id number], [address] [place], [address], 4 14:07:56 Flonase Allergy Relief 50 mcg/actuati on nasal spray,suspe nsion [address] [facility]/Pharmacy #[id number], [address] [place], [address], 4 14:07:56 ketorolac 30 mg/mL (1 mL) injection solution 2022 023 [email or web address] Not available 3 12:40:55 Patient TargetsNo targets recorded. Patient InstructionsNo instructions recorded. Reason for Referral None Reported. Medical Equipment None Reported. Allergies Allergen ID Allergen Name Allergen Category Reaction Reaction Severity Criticality Documentation Date Start Date Code Code System Note Provider Name and Address Organization Details Recorded Time 79594 azithromy jeovany medicatio n Not available Not available Not available 07/15/2024 39125 Rx[facility] Available [facility] 4 12:23:58 7433 prednison e medicatio n Not available Not available Not available 05/16/2024 8640 RxNorm Not Available [facility] - production 4 03:37:27 Medications Name Sig [...] Not Available Not Available Vitals Date Recorded Heart rate Body height Body weight Respiratory rate Oxygen saturation Oxygen saturation in Arterial blood by Pulse oximetry Body temperature Systolic And Diastolic Provider Name and Address Organization Details Last Updated DateTime 3 82 /min 152.4 cm 32848.4 g 14 /min 96 % 96 % 97.4 [degF] 143/88 mm[Hg] Not Available [facility] 3 12:26:50 Date Recorded Respiratory rate Body temperature Oxygen saturation Oxygen saturation in Arterial blood by Pulse oximetry Body weight Heart rate Systolic And Diastolic Provider Name and Address Organization Details Last Updated DateTime 4 16 /min 98.5 [degF] 98 % 98 % 10462.2 4 g 74 /min 148/98 mm[Hg] Not Available [facility] 4 14:05:02 Social History None recorded. Functional Status None [...] [id number] Daily Gillespie MD Main - [facility] [address] [place] [address] 10/28/2022 12:26:48 11/03/2022 10:03:40 Chronic pain syndrome [id number] G89.4 56 year old female with a [...] issues with dispensing her regular pain regimen. [id number] BHUMI GAMEZ MD Main - [address] [address] 07/15/2024 14:05:00 07/18/2024 20:42:18 Sinusitis [id number] J32.9 Evaluation in the field was performed by my retail and promotions coordinator colleague, as noted above, I provided real-time [...] first dose was administer ed by the retail and promotions coordinator. Recommende d follow-up with the patient's PCP [...] Recorded Advance Directives Directive None Recorded Payers Insurance Date Sequence Insurance Name Policy Number Policy Sanchez Covered Member ID Sanchez Member ID Guarantor Name 07/15/2024 1 [facility] - DOS PRIOR TO 2022 - DUAL ELIGIBLE (MEDICARE REPLACEMENT/AD VANTAGE - HMO) Radha Duenas [id number] Radha Duneas 07/15/2024 1 [facility] - DOS ON OR AFTER 2022 - DUAL ELIGIBLE - USP OPTIONS AND ONE CARE (MEDICARE REPLACEMENT/AD VANTAGE - HMO) Radha Duenas [id number] Radha Duenas Notes Date Note Type Note Provider Name and Address Organization Details Recorded Time 10/28/2022 text/html HPI: Pia is a 56 you female with history of Fibromyalgia, Anxiety, GERD, Headaches, Hypothyroidism, seasonal allergies, Marijuana use, Tobacco dependence, MDD, age related disability and chronic migraines. Allergy to Prednisone (swelling). MSR transferred call to this CRU reporting that Pia was having pain in her legs and [...] go to ER and she declined. Offered [facility] and she agreed but also instructed Mbr to call Prescribing Provider to have them order the Lyrica as applicable. Mbr agreed to plan. Confirmed address and phone numbers same as in ECW and GC. Best number to reach Mbr is [phone]. Sent [facility] request in for today and sent activity to CP alerting CP about this call and TE. .................. .................. .................. .................. .................. .................. .................. ............... CRC Nursing Assessment: Comments: CRC RN DID NOT NEED FURTHER INFO Daily Gillespie MD [address] [place] [address],[address], [place], [address], [employer] 10/28/2022 12:41:01 07/15/2024 text/html CRC Nurse Triage Notes (Ana Pham - RN): Chief Complaints: Common cold symptoms, Headache, Swelling PMH: Fibromyalgia, Chronic Back Pain, Obesity Comments: [employer] verified the member's name//address and phone number. [...] .................. .................. .................. .................. .................. .................. ............... Rapid Extractor Operator Note From Saman Judge: Pt co continued NC and sinus pressure. Pt finished antibiotics amox 2 weeks ago. Pt sts mucus is clear in color. Pt sts has off and on headache as well. Pt denies cough , fever , dizziness, NVD. Baseline vitals assessed WNL, afebrile, lungs clear. [facility] Jesus contacted and 500mg levo po , right med date dose and route , RX called in for levo and Flonase. Pt advised if not symptom free after levo round , to contact pcp to see ENT specialist. Pt education on signs indicating the ER. .................. .................. .................. .................. .................. .................. .................. ............... [facility] Consulted: Bhumi Gamez .................. .................. .................. .................. .................. .................. .................. ............... Disposition: Fulfilled BHUMI GAMEZ MD [address] [facility],[address], [place], [address], [employer] [facility], [facility] 07/15/2024 22:42:43 OBGyn Episode No OBEpisode recorded.
== END 2025-01-30 16:01 | disposition home or self-care (01) ==
LOC: HO.HMCFM 15:30
PROVIDERS: PCP Nurse Practitioner Family; Visit Provider Nurse Practitioner Family
DX: F41.9 Anxiety disorder, unspecified (principal); F32.A Depression, unspecified; G89.4 Chronic pain syndrome; Z00.00 Encounter for general adult medical examination without abnormal findings

== ENCOUNTER → 2025-01-30 15:29 | Outpatient (BNVA) | payer OTHER, SELFPAY | PROVIDERS: PCP Nurse Practitioner Family; Visit Provider Nurse Practitioner Family | DX: Z00.00 Encounter for general adult medical examination without abnormal findings (principal); M54.50 Low back pain, unspecified; F41.9 Anxiety disorder, unspecified; F32.A Depression, unspecified; G89.4 Chronic pain syndrome | CPT/HCPCS: 96127; 99212 ==

== ENCOUNTER 2025-03-08 09:45 | Outpatient (REF) | payer OTHER, SELFPAY ==
--- OUTSIDE RECORDS SUMMARY | 2025-03-08 11:05 | XMS_ITS | Encounter Summary ---
Author Organization [facility] Address [address] [place] [phone] Phone Care Team Providers Care Community Affairs Director Name Role Phone Latosha Burgos MD Primary Care Provider + Encounter Details Date Type Department Care Team (Late st Contact Info) Description 11/05/2017 Procedure Pass OR Admitting Dept - Virtual Department [address] [place] [address] Social History Tobacco Use Types Packs/Day Years Used Date Smoking Tobacco: Every Day Smokeless Tobacco: Never Alcohol Use Standard Drinks/Week Comments No 0 (1 standard drink = 0.6 oz pur e alcohol) Comments Unknown Sex and Gender Information Value Date Recorded Sex Assigned at Not on file Legal Sex Female 6:03 PM EST Gender Identity Not on file Sexual Orientation Not on file documented as of this encounter Plan of Treatment Not on file documented as of this encounter Visit Diagnoses Not on filedocumented in this encounter Care Teams Community Affairs Director Relationship Specialty Start Date End Date Latosha Burgos MD [address] [place] [id number] PCP - General Pediatrics 09/28/17 documented as of this encounter Additional Source Comments The information contained in this document represents components of the legal health record. It is not the complete legal health record.[facility]
[2025-03-08 12:07] LABS: Alanine Aminotransferase 28 U/L (0-31); Albumin Level 4.1 g/dL (3.5-5.0); Alkaline Phosphatase 106 U/L (39-117); Anion Gap 10 (12-20); Aspartate Amino Transferase 52 U/L (5-31); Blood Urea Nitrogen 8 mg/dL (9-16); Calcium 8.5 mg/dL (8.4-10.2); Carbon Dioxide 29 mmol/L (22-29); Chloride 105 mmol/L (96-108); Estimated Glomerular Filt Rate > 60; Potassium 3.9 mmol/L (3.3-5.1); Sodium 140 mmol/L (135-145); Total Protein 6.3 g/dL (6.5-8.0)
[2025-03-08 14:34] LABS: Appearance Urine Clear; Glucose Urine UA Negative (Negative); PH 7.0 (5.0-9.0); Specific Gravity - Urine <= 1.005 (1.005-1.025); UMIC TRIGGER UACC YES
== END 2025-03-08 09:46 | disposition home or self-care (01) ==
LOC: HO.WFDLDS 09:45
PROVIDERS: Visit Provider Nurse Practitioner Family
DX: Z00.00 Encounter for general adult medical examination without abnormal findings (principal)
CPT/HCPCS: 36415; 80053; 81001; 82043; 82306; 82570

== ENCOUNTER 2025-04-26 13:55 | Outpatient (AMB) | payer OTHER, SELFPAY ==
--- NOTE | 2025-04-26 14:01 | MHC.PC.OV ---
Vital Signs 04/26/25 14:03 Height 5 ft 2 in Weight 220 lb 8 oz BMI 40.3 BP 132/78 Blood Pressure Location Lt brachial Position Sitting Respiration 16 Pulse 65 Pulse Source Pulse Oximeter Pulse Oximetry (%) 94 Oxygen Delivery Method Room Air Intake Visit Reasons: GERI SINDI/ PE LABS/ DISCUSS BREAST CX SCREENING. Intake Note: New patient visit Youth Services Specialist Required: No Allergies prednisone Allergy (Severe, Verified 04/26/25 14:04) Swelling azithromycin Allergy (Mild, Verified 04/26/25 14:04) Hives Medication List - Last Reconciled 04/26/25 by Cherie Eli PA-C bupropion HCl XL 300 mg PO DAILY 90 days calcitriol 0.25 mcg PO DAILY cetirizine (Zyrtec) 10 mg PO DAILY 90 days furosemide (Lasix) 20 mg PO DAILY PRN hydroxyzine HCl 25 mg PO BEDTIME PRN 90 days levothyroxine 137 mcg PO DAILY 30 days meloxicam 15 mg PO DAILY 30 days omeprazole 20 mg PO BID pregabalin 200 mg PO TID rosuvastatin 20 mg PO BEDTIME 90 days sertraline 100 mg PO DAILY 90 days tramadol 50 mg PO BID PRN 30 days Tobacco use date assessed: 04/26/25 Dental Screening Dental Screen Date: 01/30/25 HPI GERI SINDI/ PE LABS/ DISCUSS BREAST CX SCREENING. HPI Details Patient is a 59-year-old female who presents today for a physical exam. She normally follows with Kiara Winslow. CV: Blood pressure today in the office is 132/78. She is not on any antihypertensives. Cholesterol is controlled with rosuvastatin 20 mg. Her legs are swollen and has been like this for a long time. No chest pain or shortness on breath. Psych: Has a history of anxiety and depression in his currently on Wellbutrin 300 mg daily and sertraline 100 mg daily and hydroxyzine 25 mg at bedtime as needed. She has a lot of grief following her husbands passing. Endo: On calcitriol. Has hypothyroidism and last TSH was WNL. On levothyroxine 137 mcg daily. MSK: Has chronic ongoing back pain, neck pain and fibromyalgia. Managed with meloxicam 15 mg daily and pregabalin 200 mg 3 times a day. States that her back pain is horrible and she has a hard time standing and doing much of anything because of the pain. Neuro: Has longstanding hx of memory changes. 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- does not want Mammo: overdue Colonoscopy: overdue- would do cologuard Bone density:[facility] History Arthritis Back pain Thyroid disease GERD (gastroesophageal reflux disease) Depression Numbness Elevated cholesterol Fibromyalgia Chronic daily headache History of shingles Feeling grief Vitamin D deficiency Morbid obesity Surgical History History of back surgery Hx of neck surgery Hx of bariatric surgery History of carpal tunnel repair Hx of section Family History Mother Bone cancer Father Arthralgia Other Mental health disorder Substance abuse Social History Household Members: Children Household Members Other:: son Housing: House Are you a primary physician locums urgent care to a significant other at home: No Do you presently have visiting nurse or other home services: Yes (urology teacher) Alcohol intake: never Patient Tobacco Use Status: Current everyday Tobacco user Tobacco use type: Cigarette Cigarette Packs Per Day: 1 Cigarettes Per Day: 20.0 Years Smoked: 42 e-Cigarette/Vaping Use: Never Used Substance Use Type: Marijuana service: No Current occupational status: disabled Current occupational exposures/hazards: No Cognitive needs: No Hearing needs: No Vision needs: Yes Questionnaire Thrive Questionnaire Date Thrive assessed: 08/29/24 I am a: Patient What is your living situation today?: I have a steady place to live Within the past 12 months, did the food you bought not last and you didn't have the money to get more?: Sometimes True Within the past 12 months, did you worry whether your food would run out before you got money to buy more?: Sometimes True Do you have trouble paying for medicines?: No Do you have trouble getting transportation to medical appointments?: No Do you have trouble paying your heating and electricity bill?: I choose not to answer this question Do you have trouble taking care of your child, family member or friend?: No Do you have trouble with day-to-day activities such as bathing, preparing meals, shopping, managing finances, etc.?: No Are you currently unemployed and looking for a job?: I choose not to answer this question Are you interested in more education?: I choose not to answer this question Please select the resources that you would like help with: None Currently or been in a relationship where the following occur: I choose not to answer THRIVE Score: 2 AUDIT C Alcohol Use Questionnaire (AUDIT-C) 1. How often do you have a drink containing alcohol?: Never 3. How often do you have six or more drinks on one occasion?: Never Total Score: 0 CARLY-7 AMB Questionnaire CARLY-7 Date CARLY - 7 assessed: 01/30/25 Source: Developed by Drs. Ab Rosales, Ruba Barnes, Kash Edwards and colleagues, with an educational kristyn from [employer]. Physical exam (Primary Care) Tobacco/Smoking Status: Tobacco use Status Tobacco use date assessed 01/30/25 01/30/25 15:40 Patient Tobacco Use Status Current everyday Tobacco 01/30/25 15:33 Tobacco use type Cigarette 01/30/25 15:33 e-Cigarette/Vaping Use Never Used 01/30/25 15:33 Thrive Assessment: Date of Thrive Assessment Date Thrive assessed 08/29/24 01/30/25 15:33 Currently or been in a relationship where the following occur: I choose not to answer Const Orientation/consciousness: patient oriented x3 HENMT Ears: hearing grossly normal bilaterally and TM's normal bilaterally General nose exam: No nasal polyps present Face and sinus: Yes sinuses nontender Mouth: Normal oral and palatal mucosa present Eyes Pupils: Equal, round and reactive pupils present EOM: EOMs intact bilaterally Neck Neck: Yes full ROM and Yes no lymphadenopathy Thyroid: Thyroid normal Chest Chest palpation & inspection: normal inspection of the chest Resp Auscultation: clear to auscultation bilaterally Cardio Rate: regular rate Rhythm: regular rhythm Heart sounds: S1 normal heart sound present and S2 normal heart sound present Peripheral pulses: Peripheral pulses 2+ throughout GI Other: Soft, nontender Auscultation: normal bowel sounds Rectal Exam - Female: deferred General: Yes no CVA tenderness Back/Spine/Pelvis Other: Nontender Back: no CVA tenderness Skin General skin exam: no rashes or lesions noted Neuro General: patient oriented x3, gait normal, CN's II-XI intact bilaterally and deep tendon reflexes 2+ bilaterally Cranial nerves: Yes Equal, round and reactive pupils present Motor exam (neuro): 5/5 motor strength present throughout Sensory Exam: double simultaneous stimulation for sensation normal Coordination: fortip-yr-aqlo test normal and Romberg test negative Extrem General: Yes normal to inspection and Yes full ROM Psych Affect: normal affect Attitude: cooperative Thought process: Normal thought process present Thought content: Normal thought content present Insight: Good insight present (Psych) Judgement: Good judgement present (Psych) Results Reviewed Results Reviewed: Laboratory Tests 08/25/24 08/25/24 03/08/25 11:14 11:17 09:47 WBC 7.0 RBC 4.26 Hgb 13.3 Hct 40.1 Plt Count 206 Sodium 140 Potassium 3.9 Chloride 105 Carbon Dioxide 29 Anion Gap 10 L BUN 8 L Creatinine 0.80 Estimated GFR > 60 Fasting Glucose 86 AST 52 H ALT 28 Triglycerides 65 Cholesterol 129 LDL Cholesterol, Calc 64 HDL Cholesterol 52 Coding Level of Care Code Est Pt Level 3 (54469) Est Pt Prev Care 40-64y(44659) Diagnoses Normal physical exam Z00.00 Anxiety and depression F41.9; F32.A Hypothyroidism (acquired) E03.9 Chronic pain syndrome G89.4 High cholesterol E78.00 Swelling of lower leg M79.89 Assessment & Plan Assessment & Plan (1) Normal physical exam: Code(s): Z00.00 - Encounter for general adult medical examination without abnormal findings Category: Medical Plan: Health maintenance reviewed Labs ordered today Offered flu vaccine Mammogram ordered Bone density ordered cologuard ordered (2) Anxiety and depression: Code(s): F41.9 - Anxiety disorder, unspecified; F32.A - Depression, unspecified Category: Medical Plan: Continue bupropion 300 mg daily, sertraline 100 mg daily and hydroxyzine 25 mg (3) Hypothyroidism (acquired): Code(s): E03.9 - Hypothyroidism, unspecified Category: Medical Plan: TSH ordered Continue levothyroxine (4) Chronic pain syndrome: Code(s): G89.4 - Chronic pain syndrome Category: Medical Plan: Continue meloxicam 15 mg Continue Lyrica 200 mg 3 times a day We will start tramadol. Discussed risks and benefits and adverse effects of the medication (5) High cholesterol: Code(s): E78.00 - Pure hypercholesterolemia, unspecified Category: Medical Plan: Continue Crestor 20 mg daily (6) Swelling of lower leg: Code(s): M79.89 - Other specified soft tissue disorders Category: Medical Plan: Labs and ultrasound ordered. Short term follow up. Orders: Orders TSH reflex Free T4 Today D50.9 - Iron deficiency anemia, unspecified, D64.9 - Anemia, unspecified, E03.9 - Hypothyroidism, unspecified, E66.01 - Morbid (severe) obesity due to excess calories, E78.00 - Pure hypercholesterolemia, unspecified, F32.A - Depression, unspecified, F41.9 - Anxiety disorder, unspecified UA CC w/rflx Micro + Cult Today D50.9 - Iron deficiency anemia, unspecified, D64.9 - Anemia, unspecified, E03.9 - Hypothyroidism, unspecified, E66.01 - Morbid (severe) obesity due to excess calories, E78.00 - Pure hypercholesterolemia, unspecified, F32.A - Depression, unspecified, F41.9 - Anxiety disorder, unspecified, R30.0 - Dysuria Microalbumin, Random (w Creat) Today D50.9 - Iron deficiency anemia, unspecified, D64.9 - Anemia, unspecified, E03.9 - Hypothyroidism, unspecified, E66.01 - Morbid (severe) obesity due to excess calories, E78.00 - Pure hypercholesterolemia, unspecified, F32.A - Depression, unspecified, F41.9 - Anxiety disorder, unspecified Vitamin B12 and Folate Today D50.9 - Iron deficiency anemia, unspecified, D64.9 - Anemia, unspecified, E03.9 - Hypothyroidism, unspecified, E66.01 - Morbid (severe) obesity due to excess calories, E78.00 - Pure hypercholesterolemia, unspecified, F32.A - Depression, unspecified, F41.9 - Anxiety disorder, unspecified Magnesium Today D50.9 - Iron deficiency anemia, unspecified, D64.9 - Anemia, unspecified, E03.9 - Hypothyroidism, unspecified, E66.01 - Morbid (severe) obesity due to excess calories, E78.00 - Pure hypercholesterolemia, unspecified, F32.A - Depression, unspecified, F41.9 - Anxiety disorder, unspecified IRON PROFILE Today D50.9 - Iron deficiency anemia, unspecified, D64.9 - Anemia, unspecified, E03.9 - Hypothyroidism, unspecified, E66.01 - Morbid (severe) obesity due to excess calories, E78.00 - Pure hypercholesterolemia, unspecified, F32.A - Depression, unspecified, F41.9 - Anxiety disorder, unspecified XR DEXA appendicular skeleton Today N95.1 - Menopausal and female climacteric states NT Pro B Type Natriuretic Pept Today M79.89 - Other specified soft tissue disorders US venous duplex LE BI Today M79.669 - Pain in unspecified lower leg, M79.89 - Other specified soft tissue disorders Comprehensive [place]. Panel Fast Today D50.9 - Iron deficiency anemia, unspecified, D64.9 - Anemia, unspecified, E03.9 - Hypothyroidism, unspecified, E66.01 - Morbid (severe) obesity due to excess calories, E78.00 - Pure hypercholesterolemia, unspecified, F32.A - Depression, unspecified, F41.9 - Anxiety disorder, unspecified Complete Blood Count Auto Diff Today D50.9 - Iron deficiency anemia, unspecified, D64.9 - Anemia, unspecified, E03.9 - Hypothyroidism, unspecified, E66.01 - Morbid (severe) obesity due to excess calories, E78.00 - Pure hypercholesterolemia, unspecified, F32.A - Depression, unspecified, F41.9 - Anxiety disorder, unspecified Hemoglobin A1c Today D50.9 - Iron deficiency anemia, unspecified, D64.9 - Anemia, unspecified, E03.9 - Hypothyroidism, unspecified, E66.01 - Morbid (severe) obesity due to excess calories, E78.00 - Pure hypercholesterolemia, unspecified, F32.A - Depression, unspecified, F41.9 - Anxiety disorder, unspecified, R73.01 - Impaired fasting glucose Ferritin Today D50.9 - Iron deficiency anemia, unspecified, D64.9 - Anemia, unspecified, E03.9 - Hypothyroidism, unspecified, E66.01 - Morbid (severe) obesity due to excess calories, E78.00 - Pure hypercholesterolemia, unspecified, F32.A - Depression, unspecified, F41.9 - Anxiety disorder, unspecified RT home sleep study Today R06.81 - Apnea, not elsewhere classified MM screening mammo BI Today Z12.31 - Encounter for screening mammogram for malignant neoplasm of breast Referrals Cologuard Test Z12.11 - Encounter for screening for malignant neoplasm of colon Medications: New tramadol 50 mg PO BID PRN 60 tabs 0RF pain 30 days furosemide (Lasix) 20 mg PO DAILY PRN 90 tabs 0RF edema
[2025-04-26 14:03] VITALS: BP 132/78; PULSE 65; RESP 16; O2SAT 94; BMI 40.3
== END 2025-04-26 14:31 | disposition home or self-care (01) ==
LOC: HO.HMCFM 13:56
PROVIDERS: PCP Physician Assistant; Visit Provider Physician Assistant
DX: Z00.00 Encounter for general adult medical examination without abnormal findings (principal); E78.00 Pure hypercholesterolemia, unspecified; F32.A Depression, unspecified; F41.9 Anxiety disorder, unspecified; M79.89 Other specified soft tissue disorders; E03.9 Hypothyroidism, unspecified; G89.4 Chronic pain syndrome

== ENCOUNTER 2025-04-26 13:55 | Outpatient (REF) | payer OTHER, SELFPAY ==
[2025-04-26 17:52] LABS: MANUAL DIFF FLAG NO
[2025-04-26 18:10] LABS: Hematocrit 38.0 % (37.0-47.0); Hemoglobin 12.9 g/dl (12.0-16.0); Imm Gran Abs Auto 0.03 X10*3/uL (0.00-0.03); Imm Gran Pct Auto 0.4 % (0.0-0.4); Lymphocytes Absolute Auto 2.6 X10*3/uL (1.2-4.9); Mean Corpuscular HGB Conc 33.9 g/dl (31.0-35.0); Mean Corpuscular Hemoglobin 31.2 pg (27.0-33.0); Mean Corpuscular Volume 92.0 fL (80.0-98.0); NRBC Abs Auto 0.000 X10*3/uL (0.0-0.012); NRBC Pct Auto 0.0 /100WBC (0.0-0.2); Platelet Count 246 X10*3/uL (160-400); Red Blood Count 4.13 X10*6/uL (4.20-5.50); White Blood Count 7.8 X10*3/uL (4.8-10.8)
[2025-04-26 18:13] LABS: Appearance Urine Clear; Glucose Urine UA Negative (Negative); PH 7.0 (5.0-9.0); Specific Gravity - Urine <= 1.005 (1.005-1.025); UMIC TRIGGER UACC YES
[2025-04-26 18:16] LABS: Alanine Aminotransferase 29 U/L (0-31); Albumin Level 4.1 g/dL (3.5-5.0); Alkaline Phosphatase 109 U/L (39-117); Anion Gap 12 (12-20); Aspartate Amino Transferase 52 U/L (5-31); Blood Urea Nitrogen 7 mg/dL (9-16); Calcium 8.8 mg/dL (8.4-10.2); Carbon Dioxide 29 mmol/L (22-29); Chloride 102 mmol/L (96-108); Estimated Glomerular Filt Rate > 60; Iron 75 mcg/dL (30-160); Magnesium 2.1 mg/dL (1.6-2.6); Percent Iron Saturation 28 % (15-50); Potassium 3.8 mmol/L (3.3-5.1); Sodium 139 mmol/L (135-145); Total Iron Binding Capacity 272 mcg/dL (228-428); Total Protein 6.5 g/dL (6.5-8.0); Unsaturated Iron Binding 197 ug/dL
[2025-04-26 18:33] LABS: Ferritin 25 ng/mL (10-250)
[2025-04-26 18:40] LABS: Folate 14.4 ng/mL (> or = 4.0); Vitamin B12 341 pg/mL (200-900)
[2025-04-26 19:20] LABS: Free T4 (Free Thyroxine) < 0.42 ng/dL (0.71-1.85)
== END 2025-04-26 13:56 | disposition home or self-care (01) ==
LOC: HO.WFDLDS 13:55
PROVIDERS: PCP Physician Assistant; Visit Provider Physician Assistant
DX: Z00.00 Encounter for general adult medical examination without abnormal findings (principal); E66.01 Morbid (severe) obesity due to excess calories; R73.01 Impaired fasting glucose; F41.9 Anxiety disorder, unspecified; F32.A Depression, unspecified; E78.00 Pure hypercholesterolemia, unspecified; E03.9 Hypothyroidism, unspecified; D64.9 Anemia, unspecified; D50.9 Iron deficiency anemia, unspecified; G89.4 Chronic pain syndrome; M79.89 Other specified soft tissue disorders; F17.210 Nicotine dependence, cigarettes, uncomplicated; Z79.890 Hormone replacement therapy; Z79.899 Other long term (current) drug therapy; Z68.41 Body mass index [BMI] 40.0-44.9, adult
CPT/HCPCS: 36415; 80053; 81001; 82570; 82607; 82728; 82746; 83036; 83540; 83735; 84439; 84443; 85025; 99212; 99396

== ENCOUNTER 2025-05-23 14:45 | Outpatient (AMB) | payer OTHER, SELFPAY ==
--- NOTE | 2025-05-23 14:54 | A.OFFPC_ITS ---
Vital Signs 3 05/23/25 14:59 Height 5 ft 2 in Weight 221 lb 4 oz BMI 40.5 BP 138/76 Blood Pressure Location Lt brachial Position Sitting Respiration 13 Pulse 65 Pulse Source Pulse Oximeter Temp 97.2 F Temp Source Oral Pulse Oximetry (%) 99 Oxygen Delivery Method Room Air Intake Visit Reasons: expanding rash Intake Note: Patient c/o rash and radiating all over. Patient thinks is shingles it started summer. Patient also c/o swollen eyes. Workers Compensation Adjuster Required: No Allergies prednisone Allergy (Severe, Verified 05/23/25 14:55) Swelling azithromycin Allergy (Mild, Verified 05/23/25 14:55) Hives Medication List - Last Reconciled 05/23/25 by SANIA Lozada- bupropion HCl XL 300 mg PO DAILY 90 days calcitriol 0.25 mcg PO DAILY cetirizine (Zyrtec) 10 mg PO DAILY 90 days furosemide (Lasix) 20 mg PO DAILY PRN hydroxyzine HCl 25 mg PO BEDTIME PRN 90 days levothyroxine 137 mcg PO DAILY 30 days meloxicam 15 mg PO DAILY 30 days omeprazole 20 mg PO BID pregabalin 200 mg PO TID rosuvastatin 20 mg PO BEDTIME 90 days sertraline 100 mg PO DAILY 90 days tramadol 50 mg PO BID PRN 30 days triamcinolone acetonide 0.5% 1 appl topical BID 10 days Tobacco use date assessed: 05/23/25 Dental Screening Dental Screen Date: 05/23/25 Did you have a dental visit in the last 12 months?: Yes Did you have a dental problem in the last 6 months where you did not have access to dental care?: No Was dental information given to patient?: Patient has dentist HPI HPI Comments 2 History of Present Illness0 Details History of Present Illness The patient is a 59-year-old female presenting with a chronic rash. Chronic rash: - The patient reports a chronic, unrelen ting rash that started on her right side and has spread. - The rash is intensely pruritic, causin g her to scratch frequently. - It affects her armpits bilaterally, le gs, and scalp, and is painful, with some lesions described as being like a boil. - She reports that heat, such as being i n bed or in the shower, exacerbates the symptoms, while cooler temperatures in the summer provided no relief. - She has tried numerous bfwr-bon-ekoadn r products, including calamine lotion, hydrocortisone, anti-itch creams, and anti-chafing powder, without success. - Prescribed Zyrtec, and hydroxyzine hav e also been ineffective. - The patient notes the rash is causing her to become a recluse due to its bothersome nature and appearance. - There are no other household contacts with a similar rash. - Topical triamcinolone was prescribed b ut she didnt start yet Chronic pain: - The patient reports significant pain a ssociated with the rash, stating it affects her nerves. - She was started on tramadol, which she found helpful, but was later told by a PA to discontinue it wondering if it caused her rash, howver the rash started before. She thinks it has helped but needs a higher dose. She needs refill on this and her pregabalin Adverse effect of prednisone: - The patient reports she cannot take pr ednisone because she Review of Systems - Integumentary: Reports a chronic, wide spread, severely pruritic, and painful rash on her arms, armpits, legs, belly, and scalp. - Integumentary: Describes some lesions as being like boils and others as blistery. - Integumentary: Reports skin feels very tight. - Integumentary: Reports symptoms worsen with heat and showering. - Neurological: Reports the rash pain is affecting her nerves. - Neurological: Reports a history of hea daches. Physical Exam This rash is present on arms, legs, buttocks, back and abd. Under her bilat axilla is a more fungal appearing rash. Same under her pannus and groin. Medical Decision Making The patient is a 59-year-old female with a distressing, widespread chronic rash that has failed to respond to topical triamcinolone and oral antihistamines. She suspected shingles, but the physical exam is inconsistent with a dermatomal pattern. My assessment is that there are two distinct rashes. The rash under her belly appears fungal in nature, for which I will prescribe oral fluconazole and topical nystatin powder to address both the infection and moisture. The second, more widespread and blistery rash requires a more potent approach. Given the patient's history of an adverse reaction to prednisone, systemic steroids are not an option. Therefore, I will prescribe a compounded medicated body wash containing cyclopirox, clobetasol, and salicylic acid to provide antifungal, anti- inflammatory, and keratolytic effects over a large surface area. To manage her significant associated pain, she is advised to restart tramadol, which she previously found effective. Due to the refractory nature of her condition, a referral to dermatology is being placed concurrently to ensure specialized follow-up if these initial treatments are insufficient. Plan 1. Chronic Rash - Will treat the two different rashes se fonseca. - For the fungal-appearing rash under th e belly, prescribed oral fluconazole 100 mg, one pill every three days for five doses. - Also prescribed Nystatin topical powde r to be applied once daily under the belly, with instructions to avoid any other powders. - For the widespread rash, prescribed a compounded medicated wash (cyclopirox, clobetasol, and salicylic acid) to be used as a body and scalp wash. - Instructed the patient to apply the wa sh to dry skin, leave on for 5-10 minutes, then rinse, using no other soaps. - A referral will be placed to dermatolo gy for further management if the condition does not improve. 2. Chronic Pain - The patient was advised to restart tra madol at the previously prescribed dose for pain management, i have sent a refil at the current dose, she can ask PCP about increasing at next visit.Pregabalin refill was sent too 3. Adverse Effect To Prednisone - Patient has a noted intolerance to pre dnisone; this medication will be avoided. Patient Instructions - For the rash under your belly, take on e fluconazole pill every three days until you have taken five pills in total. I will write down these special instructions for you. - Apply the prescribed Nystatin powder t o the rash under your belly once a day. Do not use any other powders in that area. - For the widespread rash on your body a nd scalp, use the special prescribed shampoo as a body wash whenever you shower. - Before you get in the shower, apply th e medicated wash to your dry skin and leave it on for 5 to 10 minutes, then rinse it off. Do not use any other soaps on your body. - You can restart your tramadol medicati on for pain. - We are referring you to a skin special ist (parts salvager). They will call you to schedule an appointment. - Please ask the staff at the front office help for a printout of your visit summary and instructions when you leave. Consent The patient provided verbal consent to have photographs taken of the rash on her arm for documentation in her medical chart. Patient was informed and verbally consented to the use of an ambient scribe for clinic note documentation during this visit. Total time spent caring for the patient today was 30 minutes. This includes time spent before the visit reviewing the chart, time spent during the visit, and time spent after the visit on documentation, reviewing laboratory results, diagnostic imaging, medications, performing a medically necessary evaluation, counseling on diagnoses, care coordination, ordering appropriate tests, ordering appropriate medications, review of tests performed by other providers, reporting test results with the patient, communication with other healthcare providers. [facility] Medical History Arthritis Back pain Thyroid disease GERD (gastroesophageal reflux disease) Depression Numbness Elevated cholesterol Fibromyalgia Chronic daily headache History of shingles Feeling grief Vitamin D deficiency Morbid obesity Surgical History History of back surgery Hx of neck surgery Hx of bariatric surgery History of carpal tunnel repair Hx of section Family History Mother Bone cancer Father Arthralgia Other Mental health disorder Substance abuse Social History Household Members: Children Household Members Other:: son Housing: House Are you a primary companion caregiver to a significant other at home: No Do you presently have visiting nurse or other home services: Yes (vallez filter operator) Alcohol intake: never Patient Tobacco Use Status: Current everyday Tobacco user Tobacco use type: Cigarette Cigarette Packs Per Day: 1 Cigarettes Per Day: 20.0 Years Smoked: 42 Packs Per Year: 42 Packs per year/per ci.00 e-Cigarette/Vaping Use: Never Used Substance Use Type: Marijuana service: No Current occupational status: disabled Current occupational exposures/hazards: No Cognitive needs: No Hearing needs: No Vision needs: Yes Questionnaire PHQ-9 Over the last 2 weeks, how often have you been bothered by any of the following problems? 1. Little interest or pleasure in doing things: not at all 2. Feeling down, depressed, or hopeless: not at all 3. Trouble falling or staying asleep, or sleeping too much: not at all 4. Feeling tired or having little energy: not at all 5. Poor appetite or overeating: not at all 6. Feeling bad about yourself - or that you are a failure or have let yourself or your family down: not at all 7. Trouble concentrating on things, such as reading the newspaper or watching television: not at all 8. Moving or speaking so slowly that other people could have noticed. Or the opposite - being so fidgety or restless that you have been moving around a lot more than usual: not at all 9. Thoughts that you would be better off or of hurting yourself in some way: not at all Total score: 0 Depression Screening Interpretation: Negative Depression Screening Done: Yes 88553 - PHQ-9 Billing: Yes Source: Developed by Drs. Ab Rosales, Ruba Barnes, Kash Edwards and colleagues, with an educational kristyn from [employer]. Thrive Questionnaire Date Thrive assessed: 05/23/25 I am a: Patient What is your living situation today?: I have a steady place to live Within the past 12 months, did the food you bought not last and you didn't have the money to get more?: Sometimes True Within the past 12 months, did you worry whether your food would run out before you got money to buy more?: Sometimes True Do you have trouble paying for medicines?: No Do you have trouble getting transportation to medical appointments?: No Do you have trouble paying your heating and electricity bill?: I choose not to answer this question Do you have trouble taking care of your child, family member or friend?: No Do you have trouble with day-to-day activities such as bathing, preparing meals, shopping, managing finances, etc.?: No Are you currently unemployed and looking for a job?: I choose not to answer this question Are you interested in more education?: I choose not to answer this question Please select the resources that you would like help with: None Currently or been in a relationship where the following occur: I choose not to answer THRIVE Score: 2 CARLY-7 AMB Questionnaire CARLY-7 Date CARLY - 7 assessed: 05/23/25 Feeling nervous, anxious, or on edge: 0 = Not at all Not being able to stop or control worryin = Not at all Worrying too much about different things: 0 = Not at all Trouble relaxin = Not at all Being so restless that it is hard to sit still: 0 = Not at all Becoming easily annoyed or irritable: 0 = Not at all Feeling afraid as if something awful might happen: 0 = Not at all Total CARLY-7 score (0-4 normal; 5-9 mild; 10-14 moderate; 15-21 severe): 0 Source: Developed by Drs. Ab Rosales, Ruba Barnes, Kash Edwards and colleagues, with an educational kristyn from [employer]. CARLY-7 Assessment Billing CARLY-7 Assessment Tool: CARLY-7 Assessment 16260 Physical exam (Primary Care) Vital Signs: Last Vital Signs Temp 97.2 F 05/23/25 14:59 Pulse 65 05/23/25 14:59 Resp 13 05/23/25 14:59 BP 138/76 05/23/25 14:59 Pulse Ox 99 05/23/25 14:59 Oxygen Delivery Method Room Air 05/23/25 14:59 BMI result Body Mass Index 40.5 Tobacco/Smoking Status: Tobacco use Status Tobacco use date assessed 05/23/25 05/23/25 15:01 Patient Tobacco Use Status Current everyday Tobacco 05/23/25 15:01 Tobacco use type Cigarette 05/23/25 15:01 e-Cigarette/Vaping Use Never Used 05/23/25 15:01 PHQ-9: PHQ-9 Score PHQ-9: Total score 0 05/23/25 15:19 Depression Screening Interpretation: Negative Thrive Assessment: Date of Thrive Assessment Date Thrive assessed 05/23/25 05/23/25 15:01 Currently or been in a relationship where the following occur: I choose not to answer Coding Level of Care Code Est Pt Level 4 (15563) Complex EM visit Add On G2211 Diagnoses Rash R21 Additional Codes CARLY-7 Assessment Billing - CARLY-7 Assessment Tool: CARLY-7 Assessment 08935 ([id number]) PHQ-9 - 09631 - PHQ-9 Billing: Yes ([id number]) Assessment & Plan Assessment & Plan (1) Rash: Code(s): R21 - Rash and other nonspecific skin eruption Category: Medical Plan . Orders: Referrals 2 Dermatology Referral L50.9 - Urticaria, unspecified, R21 - Rash and other nonspecific skin eruption Medications: New 2 fluconazole 100 mg PO DAILY 5 tabs 0RF pvgqfwfxjg-jncxurkkzo-bafihzc 0.77-0.05-3 % 1 ea topical DAILY 120 mL 2RF nystatin 1 appl topical DAILY 60 grams 3RF Refilled 2 pregabalin 200 mg PO TID 90 caps 0RF tramadol 50 mg PO BID PRN 60 tabs 0RF pain 30 days Patient Instructions: - For the rash under your belly, take one fluconazole pill every three days until you have taken five pills in total. I will write down these special instructions for you. - Apply the prescribed Nystatin powder to the rash under your belly once a day. Do not use any other powders in that area. - For the widespread rash on your body and scalp, use the special prescribed shampoo as a body wash whenever you shower. - Before you get in the shower, apply the medicated wash to your dry skin and leave it on for 5 to 10 minutes, then rinse it off. Do not use any other soaps on your body. - You can restart your tramadol medication for pain. - We are referring you to a shank skinner (parts salvager). They will call you to schedule an appointment. - Please ask the staff at the front office help for a printout of your visit summary and instructions when you leave.
[2025-05-23 14:59] VITALS: BP 138/76; PULSE 65; RESP 13; TEMP 36.2; O2SAT 99; BMI 40.5
--- OUTSIDE RECORDS SUMMARY | 2025-05-23 17:51 | XMS_ITS | Encounter Summary ---
Author Organization [facility] Address [address] [place] [phone] Phone Care Team Providers Care Cigarette Maker Name Role Phone Latosha Burgos MD Primary Care Provider + Encounter Details Date Type Department Care Team (Late st Contact Info) Description 07/29/2018 Procedure [place] Admitting Dept - Virtual Department [address] [place] [address] Social History Tobacco Use Types Packs/Day Years [...] on filedocumented in this encounter Care Teams Cigarette Maker Relationship Specialty Start Date End Date Latosha Burgos MD [address] [place] [phone] PCP - General Pediatrics 09/28/17 documented as of this encounter Additional Source Comments The information contained in this document represents components of the legal health record. It is not the complete legal health record.[facility]
--- OUTSIDE RECORDS SUMMARY | 2025-05-23 17:51 | XMS_ITS | Encounter Summary ---
Author Organization [facility] Address [address] [place] [phone] Phone Care Team Providers Care Audio Video Mechanic Name Role Phone Latosha Burgos MD Primary Care Provider + Encounter Details Date Type Department Care Team (Late st Contact Info) Description 07/29/2018 Procedure [place] Admitting Dept - Virtual Department [address] [place] [address] Social History Tobacco Use Types Packs/Day Years [...] on filedocumented in this encounter Care Teams Audio Video Mechanic Relationship Specialty Start Date End Date Latosha Burgos MD [address] [place] [phone] PCP - General Pediatrics 09/28/17 documented as of this encounter Additional Source Comments The information contained in this document represents components of the legal health record. It is not the complete legal health record.[facility]
--- OUTSIDE RECORDS SUMMARY | 2025-05-23 17:51 | XMS_ITS | Encounter Summary ---
Author Organization [facility] Address [address] [place] [phone] Phone Care Team Providers Care Railcar Switcher Name Role Phone Latosha Burgos MD Primary Care Provider + Encounter Details Date Type Department Care Team (Late st Contact Info) Description 02/22/2018 Prep for Surgery [facility] Orthopedics & Sports Medicine [address] [place] [phone] Rosalia Handley MD [address] [place] [address] Orthopedics & Sports Medicine, [facility] [place] [address] Social History Tobacco Use Types Packs/Day Years [...] on filedocumented in this encounter Care Teams Railcar Switcher Relationship Specialty Start Date End Date Latosha Burgos MD [address] [place] [phone] PCP - General Pediatrics 09/28/17 documented as of this encounter Additional Source Comments The information contained in this document represents components of the legal health record. It is not the complete legal health record.[facility]
--- OUTSIDE RECORDS SUMMARY | 2025-05-23 17:51 | XMS_ITS | Encounter Summary ---
Author Organization [facility] Address [address] [place] [phone] Phone Care Team Providers Care Aeronautical Inspector Name Role Phone Latosha Burgos MD Primary Care Provider + Encounter Details Date Type Department Care Team (Late st Contact Info) Description 11/05/2017 Procedure [place] Admitting Dept - Virtual Department [address] [place] [address] Social History Tobacco Use Types Packs/Day Years [...] on filedocumented in this encounter Care Teams Aeronautical Inspector Relationship Specialty Start Date End Date Latosha Burgos MD [address] [place] [phone] PCP - General Pediatrics 09/28/17 documented as of this encounter Additional Source Comments The information contained in this document represents components of the legal health record. It is not the complete legal health record.[facility]
--- OUTSIDE RECORDS SUMMARY | 2025-05-23 17:51 | XMS_ITS | Data Portability ---
Author Organization [employer] [facility], [facility] Address [address] [place] [address] Care Team Providers Care Display Mechanic Name Role Phone HIM CCA OTHER Assessment No assessment recorded. Plan of Treatment Reminders Order Date Submit Date Provider Last Modified By Organization Details Last Modified Time Details Appointments None recorded. Lab None recorded. Referral None recorded. Procedures None recorded. Surgeries None recorded. Imaging None recorded. Medication Orders levofloxaci n 500 mg tablet 2023 024 [facility] #[id number], [address] [place], [id number], 4 14:07:54 levofloxaci n 500 mg tablet 2023 024 [facility] #[id number], [address] [place], [address], 4 14:07:56 Flonase Allergy Relief 50 mcg/actuati on nasal spray,suspe nsion 2023 024 [facility] #[id number], [address] [place], [phone], 4 14:07:56 ketorolac 30 mg/mL (1 mL) injection solution 2022 023 [email or web address] Not available 3 12:40:55 Patient TargetsNo targets recorded. Patient InstructionsNo instructions recorded. Reason for Referral None Reported. Medical Equipment None Reported. Allergies Allergen ID Allergen Name Allergen Category Reaction Reaction Severity Criticality Documentation Date Start Date Code Code System Note Provider Name and Address Organization Details Recorded Time 50779 azithromy jeovany medicatio n Not available Not available Not available 07/15/2024 06120 [facility] Available [facility] 4 12:23:58 7433 prednison e medicatio n Not available Not available Not available 05/16/2024 8640 RxNorm Not Available [facility] - production 4 03:37:27 Medications Name Sig [...] Updated DateTime 3 82 /min 152.4 cm 40031.4 g 14 /min 96 % 96 % 97.4 [degF] 143/88 mm[Hg] Not Available [employer] 3 12:26:50 Date Recorded Respiratory rate Body temperature Oxygen saturation Oxygen saturation in Arterial blood by Pulse oximetry Body weight Heart rate Systolic And Diastolic Provider Name and Address Organization Details Last Updated DateTime 4 16 /min 98.5 [degF] 98 % 98 % 05927.2 4 g 74 /min 148/98 mm[Hg] Not Available [employer] 4 14:05:02 Social History None recorded. Functional Status None recorded. Mental Status None recorded. Family History Nothing Reported. Medical History No medical history recorded. Gynecological HistoryNo gynecological history recorded. Obstetrics History GPAL:G 0 P 0 0 0 0 Past Encounters Encounter ID Performer Location Encounter Start Date Encounter Closed Date Diagnosis/Indication Diagnosis SNOMED-CT Code Diagnosis ICD10 Code Diagnosis IMO Codes Diagnosis Note [id number] Daily Gillespie MD Main - [facility] [address] [place] [phone] 10/28/2022 12:26:48 11/03/2022 10:03:40 Chronic pain syndrome 951526236 G89.4 56 year old female with a [...] issues with dispensing her regular pain regimen. [id number] STORM GAMEZ MD Main - [address] [phone] 07/15/2024 14:05:00 07/18/2024 20:42:18 Sinusitis 22447160 J32.9 Evaluation in the field was performed by my head still operator colleague, as noted above, I provided real-time [...] first dose was administer ed by the head still operator. Recommende d follow-up with the patient's PCP [...] Sanchez Member ID Guarantor Name 07/15/2024 1 [facility] - DOS PRIOR TO 2022 - DUAL ELIGIBLE (MEDICARE REPLACEMENT/AD VANTAGE - HMO) Radha Duenas [id number] Radha Duenas 07/15/2024 1 [facility] - DOS ON OR AFTER 2022 - DUAL ELIGIBLE - HALFWAY OPTIONS AND ONE CARE (MEDICARE REPLACEMENT/AD VANTAGE - HMO) Radha Duenas [id number] Radha Duenas Notes Date Note Type Note [...] go to ER and she declined. Offered [facility] and she agreed but also instructed Mbr to call Prescribing Provider to have them order the Lyrica as applicable. Mbr agreed to plan. Confirmed address and phone numbers same as in ECW and GC. Best number to reach Mbr is [phone]. Sent [facility] request in for today and sent activity to CP alerting CP about this call and TE. .................. .................. .................. .................. .................. .................. .................. ............... CRC Nursing Assessment: Comments: CRC RN DID NOT NEED FURTHER INFO Daily Gillespie MD [address] [place] [address],[address], [place], [address], [employer] 10/28/2022 12:41:01 07/15/2024 text/html ROS as noted in the HPI CRC Nurse Triage Notes (Ana Pham - RN): Chief Complaints: Common cold symptoms, Headache, Swelling PMH: Fibromyalgia, Chronic Back Pain, Obesity Comments: Template Cutter verified the member's name//address and phone number. [...] .................. .................. .................. .................. .................. .................. ............... Mmd Unit Teacher Note From Saman Judge: Pt co continued NC and sinus pressure. Pt finished antibiotics amox 2 weeks ago. Pt sts mucus is clear in color. Pt sts has off and on headache as well. Pt denies cough , fever , dizziness, NVD. Baseline vitals assessed WNL, afebrile, lungs clear. [facility] Jesus contacted and 500mg levo po , right med date dose and route , RX called in for levo and Flonase. Pt advised if not symptom free after levo round , to contact pcp to see ENT specialist. Pt education on signs indicating the ER. .................. .................. .................. .................. .................. .................. .................. ............... [facility] Consulted: Baci, Genta .................. .................. .................. .................. .................. .................. .................. ............... Disposition: Fulfilled STORM GAMEZ MD [address] [facility],[address], [place], [address], [employer] [facility] 07/15/2024 22:42:43 OBGyn Episode No OBEpisode recorded.
--- OUTSIDE RECORDS SUMMARY | 2025-05-23 17:51 | XMS_ITS | Encounter Summary ---
Author Organization Formerly [facility] Address [address] [place] [address] [place] [address] Phone Care Team Providers Care Electrical Inspector Name Role Phone Latosha Burgos MD Primary Care Provider + Encounter Details Date Type Department Care Team (Latest Contact Info) Description 10/19/2017 Prep for Surgery [facility] [address] [place] [phone] Rosalia Handley MD [address] [place] [address] Orthopedics & Sports Medicine, [facility] [place] [address] [email or web address] Carpal tunnel syndrome of right wrist (Primary Dx) Social History Tobacco Use Types Packs/Day Years [...] documented as of this encounter Visit Diagnoses Diagnosis Carpal tunnel syndrome of right wrist- Primary documented in this encounter Care Teams Electrical Inspector Relationship Specialty Start Date End Date Latosha Burgos MD [address] [place] [id number] PCP - General Pediatrics 09/28/17 documented as of this encounter Additional Source Comments The information contained in this document represents components of the legal health record. It is not the complete legal health record.[facility]
--- OUTSIDE RECORDS SUMMARY | 2025-05-23 17:51 | XMS_ITS | Clinical Summary ---
Author Organization [facility] Address [address] [facility] [address] [place] [phone] Phone Care Team Providers Care Environmental Aide Name Role Phone Latosha Burgos MD Primary Care Provider + Allergies Active Allergy Reactions Criticality Noted Date Comments Prednisone Swelling 10/19/2017 Medications omeprazole (PRILOSEC) 20 mg TbEC Take 40 mg by mouth daily before breakfast. Active sertraline (ZOLOFT) 25 MG tablet Take 25 mg by mouth daily. Active buPROPion (WELLBUTRIN XL) 300 MG ER 24 hr tablet Take 300 mg by mouth daily. Active gabapentin (NEURONTIN) 300 MG capsule Take 900 mg by mouth 3 (three) times a day. Active atorvastatin (LIPITOR) 40 MG tablet Take 40 mg by mouth daily. 5 8 Active cholecalciferol 50,000 unit capsule TAKE 1 CAP BY MOUTH ONCE A WEEK. 1 8 Active cyclobenzaprine (FLEXERIL) 10 MG tablet 8 Active diclofenac sodium (VOLTAREN) 75 MG EC tablet Take 75 mg by mouth. 1 8 Active estradiol (ESTRACE) 2 MG tablet Take 2 mg by mouth daily. 0 8 Active HYDROcodone-juan manuel taminophen (NORCO 10-325) 10-325 mg per tablet TAKE 1 TABLET BY MOUTH EVERY 6 HOURS NEEDED FOR UP TO 7 DAYS 0 8 Active LORazepam (ATIVAN) 1 MG tablet TAKE 1 TABLET BY MOUTH ONCE 1 HOUR PRIOR TO PROCEDURE MAY REPEAT X1 0 8 Active rizatriptan (MAXALT) 10 MG tablet TAKE 1 TABLET BY MOUTH ONCE.MAY REPEAT AT 2 HOUR INTERVALS. MAX 3TABS/24HOURS 5 8 Active SUMAtriptan (IMITREX) 100 MG tablet TAKE 1 TAB BY MOUTH ONCE W/ FLUIDS AT ONSET OF MIGRAINE MAY REPEAT AFTER 2 HRS IF HEADACHE PERSIST 5 8 Active Active Problems Problem Noted Date Diagnosed Date Status post carpal tunnel release 11/11/2017 Overview (11/11/2017): Right carpal tunnel revision 11/05/[address] Handley Carpal tunnel syndrome of right wrist Social History Tobacco Use Types Packs/Day Years Used Date Smoking Tobacco: Every Day Smokeless Tobacco: Never Alcohol Use Standard Drinks/Week Comments No 0 (1 standard drink = 0.6 oz pur e alcohol) Education Answer Date Recorded Are you interested in more education? Not on brent e 11/22/2022 Are you concerned about learning? Not on file 11/22/2022 No 11/22/2022 No 11/22/2022 Digital Access Answer Date Recorded No 12/13/2022 No 12/13/2022 No 12/13/2022 Reliable internet access at home? Not on file 12/13/2022 Device with a working camera? Not on file Comments Unknown Sex and Gender Information Value Date Recorded Sex Assigned at Not on file Legal Sex Female 6:03 PM EST Gender Identity Not on file Sexual Orientation Not on file Last Filed Vital Signs Vital Sign Reading Time Taken Comments Blood Pressure 110/67 11/05/2017 1:39 PM EDT Pulse 66 11/05/2017 1:39 PM EDT Temperature 36.8 C (98.2 F) 11/05/2017 1:39 PM EDT Respiratory Rate 16 11/05/2017 1:39 PM EDT Oxygen Saturation 95% 11/05/2017 1:39 PM EDT Inhaled Oxygen Concentration - - Weight 99.3 kg (219 lb) 02/17/2018 8:53 AM EDT Height 157.5 cm (5' 2.01 ) 02/17/2018 8:53 AM ED T Body Mass Index 40.05 02/17/2018 8:53 AM EDT Plan of Treatment Health Maintenance Due Date Last Done Comments LIPID PANEL 1964 DEPRESSION SCREENING 1976 SMOKING Hx and SMOKELESS TOB ACCO SCREENING 1977 HEPATITIS C SCREENING 1982 HIV ONE-TIME SCREENING (18-6 5 YEARS) 1982 PNEUMOCOCCAL VACCINES (50+ y ears) (1 of 2 - PCV) 11/07/1983 PAP SMEAR 1985 MAMMOGRAM 2004 COLOGUARD 2009 COLONOSCOPY 2009 COLORECTAL CANCER SCREENING 2009 FIT TEST 2009 FOBT 2009 SIGMOIDOSCOPY 2009 VIRTUAL COLONOSCOPY 2009 ZOSTER VACCINES (1 of 2) 2014 INFLUENZA VACCINE (#1) 2025 06/01/2019 COVID-19 VACCINE (1 - 2024-2 6 season) 2025 Adult Td,Tdap Booster 07/17/2026 07/17/2016 RSV VACCINE (1 - 1-dose 75+ series) 11/07/2039 HEPATITIS A VACCINES Aged Out No long er eligible based on patient's age to complete this topic HIB VACCINES Aged Out No longer eligi ble based on patient's age to complete this topic MENINGOCOCCAL VACCINES (ACWY) Aged Out No longer eligible based on patient's age to complete this topic MENINGOCOCCAL VACCINES (B) Aged Out N o longer eligible based on patient's age to complete this topic Medical Devices Not on file Insurance [facility] [place] [id number] [facility] POS [place] [id number] [facility] [place] [facility] [place] [facility] [place] [place] [id number] [facility] [place] [place] [address] [facility] [place] [id number] [facility] [place] [id number] [facility] [place] [id number] [facility] POS EPO Advance Directives For more information, please contact: [phone] (9AM - 5PM [facility], Wednesday-Wednesday) * Full Code (Presumed) (Latest Code Status on File) Date Activated Date Inactivated Comments 11/05/2017 11:33 AM 11/05/2017 3:53 PM Care Teams Environmental Aide Relationship Specialty Start Date End Date Latosha Burgos MD [address] [place] [address] PCP - General Pediatrics 09/28/17 Additional Source Comments The information contained in this document represents components of the legal health record. It is not the complete legal health record.[facility]
== END 2025-05-23 15:22 | disposition home or self-care (01) ==
LOC: HO.HMCFM 14:45
PROVIDERS: PCP Physician Assistant; Visit Provider Nurse Practitioner Family
DX: R21 Rash and other nonspecific skin eruption (principal)

== ENCOUNTER → 2025-05-23 14:45 | Outpatient (BNVA) | payer OTHER, SELFPAY | PROVIDERS: PCP Physician Assistant; Visit Provider Nurse Practitioner Family | DX: R21 Rash and other nonspecific skin eruption (principal); G89.29 Other chronic pain; L50.9 Urticaria, unspecified | CPT/HCPCS: 96127; 99212 ==

== ENCOUNTER 2025-06-20 14:22 | Outpatient (REF) | payer OTHER, SELFPAY ==
[2025-06-20 18:36] LABS: MANUAL DIFF FLAG NO
[2025-06-20 19:04] LABS: NT Pro B Type Natriuretic Pept 125.5 pg/mL (<300)
[2025-06-20 19:08] LABS: Anion Gap 10 (12-20); Blood Urea Nitrogen 9 mg/dL (9-16); Calcium 8.6 mg/dL (8.4-10.2); Carbon Dioxide 26 mmol/L (22-29); Chloride 104 mmol/L (96-108); Estimated Glomerular Filt Rate > 60; Potassium 3.8 mmol/L (3.3-5.1); Sodium 136 mmol/L (135-145)
[2025-06-20 19:20] LABS: Hematocrit 36.7 % (37.0-47.0); Hemoglobin 12.2 g/dl (12.0-16.0); Imm Gran Abs Auto 0.01 X10*3/uL (0.00-0.03); Imm Gran Pct Auto 0.1 % (0.0-0.4); Lymphocytes Absolute Auto 2.5 X10*3/uL (1.2-4.9); Mean Corpuscular HGB Conc 33.2 g/dl (31.0-35.0); Mean Corpuscular Hemoglobin 30.7 pg (27.0-33.0); Mean Corpuscular Volume 92.2 fL (80.0-98.0); NRBC Abs Auto 0.000 X10*3/uL (0.0-0.012); NRBC Pct Auto 0.0 /100WBC (0.0-0.2); Platelet Count 248 X10*3/uL (160-400); Red Blood Count 3.98 X10*6/uL (4.20-5.50); White Blood Count 7.1 X10*3/uL (4.8-10.8)
[2025-06-20 21:11] LABS: Free T4 (Free Thyroxine) 1.06 ng/dL (0.71-1.85)
== END 2025-06-20 14:23 | disposition home or self-care (01) ==
LOC: HO.WFDLDS 14:22
PROVIDERS: PCP Physician Assistant; Visit Provider Physician Assistant
DX: M79.89 Other specified soft tissue disorders (principal); F41.9 Anxiety disorder, unspecified; F32.A Depression, unspecified; E78.00 Pure hypercholesterolemia, unspecified; E03.9 Hypothyroidism, unspecified; R60.0 Localized edema; E66.01 Morbid (severe) obesity due to excess calories; D64.9 Anemia, unspecified; D50.9 Iron deficiency anemia, unspecified; G89.4 Chronic pain syndrome; L30.9 Dermatitis, unspecified; Z68.41 Body mass index [BMI] 40.0-44.9, adult
CPT/HCPCS: 36415; 80048; 83880; 84439; 84443; 85025; 99212

== ENCOUNTER 2025-06-20 14:22 | Outpatient (AMB) | payer OTHER, SELFPAY ==
--- NOTE | 2025-06-20 14:38 | MHC.PC.OV ---
Vital Signs 06/20/25 14:39 Height 5 ft 2 in Weight 220 lb 2 oz BMI 40.3 BP 118/84 Blood Pressure Location Rt brachial Position Sitting Respiration 16 Pulse 73 Pulse Source Pulse Oximeter Pulse Oximetry (%) 95 Oxygen Delivery Method Room Air Intake Visit Reasons: 30 min Intake Note: Follow up Coke Handling Supervisor Required: No Allergies prednisone Allergy (Severe, Verified 06/20/25 14:38) Swelling azithromycin Allergy (Mild, Verified 06/20/25 14:38) Hives Medication List - Last Reconciled 06/20/25 by Cherie Eli PA-C bupropion HCl XL 300 mg PO DAILY 90 days calcitriol 0.25 mcg PO DAILY cetirizine (Zyrtec) 10 mg PO DAILY 90 days fluconazole 100 mg PO DAILY furosemide (Lasix) 20 mg PO DAILY PRN hydroxyzine HCl 25 mg PO BEDTIME PRN 90 days levothyroxine (Synthroid) 150 mcg PO DAILY nystatin 1 appl topical DAILY omeprazole 20 mg PO BID pregabalin 200 mg PO TID rosuvastatin 20 mg PO BEDTIME 90 days sertraline 100 mg PO DAILY 90 days tramadol 50 mg PO BID PRN 30 days triamcinolone acetonide 0.5% 1 appl topical BID 10 days Tobacco use date assessed: 06/20/25 Dental Screening Dental Screen Date: 05/23/25 HPI 30 min HPI Details Patient is a 59-year-old female who presents today for a follow up. CV: Blood pressure today in the office is 118/84. She is not on any antihypertensives. Cholesterol is controlled with rosuvastatin 20 mg. Her legs are swollen and has been like this for a long time. has not yet had an ultrasound of the legs. lasix was ineffective. No chest pain or shortness on breath. She says that she does sometimes get short of breath with walking long distances. She attributes this to deconditioning Psych: Has a history of anxiety and depression in his currently on Wellbutrin 300 mg daily and sertraline 100 mg daily and hydroxyzine 25 mg at bedtime as needed. She has a lot of grief following her husbands passing. Endo: On calcitriol. Has hypothyroidism and last TSH was elevated. levothyroxine was increased to 150 mcg daily. scheduled with endo. MSK: Has chronic ongoing back pain, neck pain and fibromyalgia. Recently trialed on tramadol twice today which is somewhat effective but does feel like it is not strong enough. Managed with meloxicam 15 mg daily and pregabalin 200 mg 3 times a day. States that her back pain is horrible and she has a hard time standing and doing much of anything because of the pain. Derm: Has persistent bumpy rash on her arms. States that it is itchy. She has tried triamcinolone cream without improvement Bankruptcy Attorney: overdue- does not want Mammo: overdue-has not yet completed Colonoscopy: overdue- would do cologuard-has not submitted yet Bone density:never had [facility] Medical History Arthritis Back pain Thyroid disease GERD (gastroesophageal reflux disease) Depression Numbness Elevated cholesterol Fibromyalgia Chronic daily headache History of shingles Feeling grief Vitamin D deficiency Morbid obesity Surgical History History of back surgery Hx of neck surgery Hx of bariatric surgery History of carpal tunnel repair Hx of section Family History Mother Bone cancer Father Arthralgia Other Mental health disorder Substance abuse Social History (Updated 06/20/25 @ 14:43 by Nneka Valdes CMA) Household Members: Children Household Members Other:: son Housing: House Are you a primary personal care aide to a significant other at home: No Do you presently have visiting nurse or other home services: Yes (disability program navigator) Alcohol intake: never Patient Tobacco Use Status: Current everyday Tobacco user Tobacco use type: Cigarette Cigarette Packs Per Day: 1 Cigarettes Per Day: 20.0 Years Smoked: 42 e-Cigarette/Vaping Use: Never Used Substance Use Type: Marijuana service: No Current occupational status: disabled Current occupational exposures/hazards: No Cognitive needs: No Hearing needs: No Vision needs: Yes Questionnaire Thrive Questionnaire Date Thrive assessed: 05/23/25 I am a: Patient What is your living situation today?: I have a steady place to live Within the past 12 months, did the food you bought not last and you didn't have the money to get more?: Sometimes True Within the past 12 months, did you worry whether your food would run out before you got money to buy more?: Sometimes True Do you have trouble paying for medicines?: No Do you have trouble getting transportation to medical appointments?: No Do you have trouble paying your heating and electricity bill?: I choose not to answer this question Do you have trouble taking care of your child, family member or friend?: No Do you have trouble with day-to-day activities such as bathing, preparing meals, shopping, managing finances, etc.?: No Are you currently unemployed and looking for a job?: I choose not to answer this question Are you interested in more education?: I choose not to answer this question Please select the resources that you would like help with: None Currently or been in a relationship where the following occur: I choose not to answer THRIVE Score: 2 AUDIT C Alcohol Use Questionnaire (AUDIT-C) 1. How often do you have a drink containing alcohol?: Never 3. How often do you have six or more drinks on one occasion?: Never Total Score: 0 CARLY-7 AMB Questionnaire CARLY-7 Date CARLY - 7 assessed: 05/23/25 Source: Developed by Drs. Ab Rosales, Ruab Barnes, Kash Edwards and colleagues, with an educational kristyn from [employer]. Physical exam (Primary Care) Vital Signs: Last Vital Signs Pulse 73 06/20/25 14:39 Resp 16 06/20/25 14:39 BP 118/84 06/20/25 14:39 Pulse Ox 95 06/20/25 14:39 Oxygen Delivery Method Room Air 06/20/25 14:39 BMI result Body Mass Index 40.3 Tobacco/Smoking Status: Tobacco use Status Tobacco use date assessed 06/20/25 06/20/25 14:43 Patient Tobacco Use Status Current everyday Tobacco 06/20/25 14:43 Tobacco use type Cigarette 06/20/25 14:43 e-Cigarette/Vaping Use Never Used 06/20/25 14:43 Thrive Assessment: Date of Thrive Assessment Date Thrive assessed 05/23/25 06/20/25 14:43 Currently or been in a relationship where the following occur: I choose not to answer Const Orientation/consciousness: patient oriented x3 HENMT Ears: hearing grossly normal bilaterally Neck Lymphatic: no lymphadenopathy noted Resp Auscultation: clear to auscultation bilaterally Cardio Rate: regular rate Rhythm: regular rhythm Heart sounds: S1 normal heart sound present and S2 normal heart sound present GI Inspection: Yes normal to inspection Palpation (GI): Soft to palpation and Other GI palpation findings present (nontender, no cva tenderness) Auscultation: normoactive bowel sounds Rectal Exam - Female: deferred Skin General skin exam: no rashes or lesions noted Neuro General: patient oriented x3, gait normal and no focal motor deficits Extrem Other: Symmetrical Calves slightly tender to palpation. No erythema. There is 1+ pitting edema noted of the bilateral lower ankles Results Reviewed Results Reviewed: Laboratory Tests 04/26/25 04/26/25 13:48 14:38 WBC 7.8 RBC 4.13 L Hgb 12.9 Hct 38.0 Plt Count 246 Sodium 139 Potassium 3.8 Chloride 102 Carbon Dioxide 29 Anion Gap 12 BUN 7 L Creatinine 0.81 Estimated GFR > 60 Fasting Glucose 78 Hemoglobin A1c % 5.5 AST 52 H ALT 29 Alkaline Phosphatase 109 Total Protein 6.5 Albumin 4.1 TSH 56.55 H Coding Level of Care Code Est Pt Level 4 (31922) Complex visit Add On G2211 Diagnoses Anxiety and depression F41.9; F32.A Hypothyroidism (acquired) E03.9 Chronic pain syndrome G89.4 High cholesterol E78.00 Swelling of lower leg M79.89 Bilateral lower extremity edema R60.0 Dermatitis L30.9 Assessment & Plan Assessment & Plan (1) Anxiety and depression: Code(s): F41.9 - Anxiety disorder, unspecified; F32.A - Depression, unspecified Category: Medical Plan: Continue bupropion 300 mg daily, sertraline 100 mg daily and hydroxyzine 25 mg (2) Hypothyroidism (acquired): Code(s): E03.9 - Hypothyroidism, unspecified Category: Medical Plan: increased levothyroxine scheduled to see endo 06/28 u/s pending check tsh today (3) Chronic pain syndrome: Code(s): G89.4 - Chronic pain syndrome Category: Medical Plan: stop meloxicam 15 mg try nabumetone 500 mg bid Continue Lyrica 200 mg 3 times a day We will tramadol to TID. Discussed risks and benefits and adverse effects of the medication (4) High cholesterol: Code(s): E78.00 - Pure hypercholesterolemia, unspecified Category: Medical Plan: Continue Crestor 20 mg daily (5) Swelling of lower leg: Code(s): M79.89 - Other specified soft tissue disorders Category: Medical Plan: Labs and ultrasound re ordered. Short term follow up. no improvement with lasix echo order ekg today in office shows (6) Bilateral lower extremity edema: Code(s): R60.0 - Localized edema Category: Medical Plan: as above (7) Dermatitis: Code(s): L30.9 - Dermatitis, unspecified Category: Medical Plan: will try clobetasol call dermatology Orders: Orders AMB EKG-In Office 06/20/25 E03.9 - Hypothyroidism, unspecified, R60.0 - Localized edema TSH reflex Free T4 06/20/25 E03.9 - Hypothyroidism, unspecified, E78.00 - Pure hypercholesterolemia, unspecified, F32.A - Depression, unspecified, F41.9 - Anxiety disorder, unspecified CA echo transthoracic complete 06/20/25 E03.9 - Hypothyroidism, unspecified, R60.0 - Localized edema Complete Blood Count Auto Diff 06/20/25 E03.9 - Hypothyroidism, unspecified, E78.00 - Pure hypercholesterolemia, unspecified, F32.A - Depression, unspecified, F41.9 - Anxiety disorder, unspecified Basic Metabolic Panel 06/20/25 E03.9 - Hypothyroidism, unspecified, E78.00 - Pure hypercholesterolemia, unspecified, F32.A - Depression, unspecified, F41.9 - Anxiety disorder, unspecified NT Pro B Type Natriuretic Pept 06/20/25 E03.9 - Hypothyroidism, unspecified, E78.00 - Pure hypercholesterolemia, unspecified, F32.A - Depression, unspecified, F41.9 - Anxiety disorder, unspecified, R60.0 - Localized edema Medications: New nabumetone 500 mg PO BID 60 tabs 5RF clobetasol 0.05% 1 appl topical BID 60 grams 1RF 2 weeks Changed From tramadol 50 mg PO BID 30 days PRN 60 tabs 0RF pain To tramadol 50 mg PO Q8H PRN 90 tabs 5RF pain 30 days Refilled pregabalin 200 mg PO TID 90 caps 5RF Discontinued meloxicam Discontinued Reason: Doctor's Order 15 mg PO DAILY 30 days 30 tabs 1RF triamcinolone acetonide 0.5% Discontinued Reason: Doctor's Order 1 appl topical BID 10 days 30 grams 1RF
[2025-06-20 14:39] VITALS: BP 118/84; PULSE 73; RESP 16; O2SAT 95; BMI 40.3
--- OUTSIDE RECORDS SUMMARY | 2025-06-20 17:12 | XMS_ITS | Encounter Summary ---
Author Organization [facility] Address [address] [place] [address] Phone Care Team Providers Care Groundskeeping Maintenance Worker Name Role Phone Latosha Burgos MD Primary Care Provider + Encounter Details Date Type Department Care Team (Late st Contact Info) Description 07/29/2018 Procedure Pass OR Admitting Dept - Virtual Department [address] [place] [address] Social History Tobacco Use Types Packs/Day Years [...] on filedocumented in this encounter Care Teams Groundskeeping Maintenance Worker Relationship Specialty Start Date End Date Latosha Burgos MD [address] [place] [address] PCP - General Pediatrics 09/28/17 documented as of this encounter Additional Source Comments The information contained in this document represents components of the legal health record. It is not the complete legal health record.[facility]
--- OUTSIDE RECORDS SUMMARY | 2025-06-20 17:12 | XMS_ITS | Encounter Summary ---
Author Organization [facility] Address [address] [facility] [address] [place] [address] Phone Care Team Providers Care Surgery Teacher Name Role Phone Latosha Burgos MD Primary Care Provider + Encounter Details Date Type Department Care Team (Late st Contact Info) Description 02/22/2018 Prep for Surgery [facility] Orthopedics & Sports Medicine [address] [place] [address] Rosalia Handley MD [address] [place] [address] Orthopedics & Sports Medicine, [facility] [place] [address] Social History Tobacco Use Types Packs/Day Years [...] on filedocumented in this encounter Care Teams Surgery Teacher Relationship Specialty Start Date End Date Latosha Burgos MD [address] [place] [address] PCP - General Pediatrics 09/28/17 documented as of this encounter Additional Source Comments The information contained in this document represents components of the legal health record. It is not the complete legal health record.[facility]
--- OUTSIDE RECORDS SUMMARY | 2025-06-20 17:12 | XMS_ITS | Data Portability ---
Author Organization [employer] [facility], [facility] Address [address] [place] [address] Care Team Providers Care Party Plan Selling Distributor Name Role Phone HIM CCA OTHER Assessment No assessment recorded. Plan of Treatment Reminders Order Date Submit Date Provider Last Modified By Organization Details Last Modified Time Details Appointments None recorded. Lab None recorded. Referral None recorded. Procedures None recorded. Surgeries None recorded. Imaging None recorded. Medication Orders levofloxaci n 500 mg tablet 2023 024 [facility]acy #[id number], [address] [place], [address], 4 14:07:54 levofloxaci n 500 mg tablet 2023 024 [facility]armacy #[id number], [address] [place], [address], 4 14:07:56 Flonase Allergy Relief 50 mcg/actuati on nasal spray,suspe nsion 2023 024 [facility] #[id number], [address] [place], [address], 4 14:07:56 ketorolac 30 mg/mL (1 mL) injection solution 2022 023 [email or web address] Not available 3 12:40:55 Patient TargetsNo targets recorded. Patient InstructionsNo instructions recorded. Reason for Referral None Reported. Medical Equipment None Reported. Allergies Allergen ID Allergen Name Allergen Category Reaction Reaction Severity Criticality Documentation Date Start Date Code Code System Note Provider Name and Address Organization Details Recorded Time 50407 azithromy jeovany medicatio n Not available Not available Not available 07/15/2024 39824 RxNorm Not Available [facility] 4 12:23:58 7433 prednison e medicatio n Not available Not available Not available 05/16/2024 8640 RxNorm Not Available [facility] - production 4 03:37:27 Medications Name Sig [...] height Body weight Respiratory rate Oxygen saturation Body temperature Systolic And Diastolic Provider Name and Address Organization Details Last Updated DateTime 3 82 /min 152.4 cm 12910.4 g 14 /min 96 % 97.4 [degF] 143/88 mm[Hg] Not Available [facility] 3 12:26:50 Date Recorded Respiratory rate Body temperature Oxygen saturation Body weight Heart rate Systolic And Diastolic Provider Name and Address Organization Details Last Updated DateTime 4 16 /min 98.5 [degF] 98 % 13137.2 4 g 74 /min 148/98 mm[Hg] Not Available [facility] 4 14:05:02 Social History None recorded. Functional [...] 9362 Daily Gillespie MD Main - [facility] [address] [place] [phone] 10/28/2022 12:26:48 11/03/2022 10:03:40 Chronic pain syndrome 434384723 G89.4 56 year old female with a [...] issues with dispensing her regular pain regimen. [address] BHUMI GAMEZ MD Main - [facility] [address] [place] [phone] 07/15/2024 14:05:00 07/18/2024 20:42:18 Sinusitis [id number] J32.9 Evaluation in the field was performed by my addiction nurse colleague, as noted above, I provided real-time [...] first dose was administer ed by the addiction nurse. Recommende d follow-up with the patient's PCP [...] Sanchez Member ID Guarantor Name 07/15/2024 1 [facility] - DOS PRIOR TO 2022 - DUAL ELIGIBLE (MEDICARE REPLACEMENT/AD VANTAGE - HMO) Radha Duenas [id number] Radha Duenas 07/15/2024 1 [facility] - DOS ON OR AFTER 2022 - DUAL ELIGIBLE - [facility] OPTIONS AND ONE CARE (MEDICARE REPLACEMENT/AD VANTAGE - HMO) Radha Duenas [id number] Radha Duenas Notes Date Note Type Note [...] go to ER and she declined. Offered [facility] and she agreed but also instructed Mbr to call Prescribing Provider to have them order the Lyrica as applicable. Mbr agreed to plan. Confirmed address and phone numbers same as in ECW and GC. Best number to reach Mbr is [phone]. Sent [facility] request in for today and sent GC activity to CP alerting CP about this call and TE. .................. .................. .................. .................. .................. .................. .................. ............... CRC Nursing Assessment: Comments: CRC RN DID NOT NEED FURTHER INFO Daily Gillespie MD [address] [place] [address],[address], [place], [address], [employer] 10/28/2022 12:41:01 07/15/2024 text/html ROS as noted in the HPI CRC Nurse Triage Notes (Ana Pham - RN): Chief Complaints: Common cold symptoms, Headache, Swelling PMH: Fibromyalgia, Chronic Back Pain, Obesity Comments: Slab Stripper verified the member's name//address and phone number. [...] .................. .................. .................. .................. .................. .................. ............... Thermal Cutting Machine Operator Note From Saman Judge: Pt co continued NC and sinus pressure. Pt finished antibiotics amox 2 weeks ago. Pt sts mucus is clear in color. Pt sts has off and on headache as well. Pt denies cough , fever , dizziness, NVD. Baseline vitals assessed WNL, afebrile, lungs clear. [facility] Jesus contacted and 500mg levo po , right med date dose and route , RX called in for levo and Flonase. Pt advised if not symptom free after levo round , to contact pcp to see ENT specialist. Pt education on signs indicating the ER. .................. .................. .................. .................. .................. .................. .................. ............... [facility] Consulted: [employer]humi [employer] .................. .................. .................. .................. .................. .................. .................. ............... Disposition: Fulfilled BHUMI GAMEZ MD [address] [place] [address],[address], [place], [address], [employer] [facility] 07/15/2024 22:42:43 OBGyn Episode No OBEpisode recorded.
--- OUTSIDE RECORDS SUMMARY | 2025-06-20 17:12 | XMS_ITS | Encounter Summary ---
Author Organization [facility] Address [address] [place] [address] Phone Care Team Providers Care Sheriff Name Role Phone Latosha Burgos MD Primary Care Provider + Encounter Details Date Type Department Care Team (Late st Contact Info) Description 07/29/2018 Procedure Pass OR Admitting Dept - Virtual Department [address] [place] [address] Social History Tobacco Use Types Packs/Day Years [...] on filedocumented in this encounter Care Teams Sheriff Relationship Specialty Start Date End Date Latosha Burgos MD [address] [place] [address] PCP - General Pediatrics 09/28/17 documented as of this encounter Additional Source Comments The information contained in this document represents components of the legal health record. It is not the complete legal health record.[facility]
--- OUTSIDE RECORDS SUMMARY | 2025-06-20 17:12 | XMS_ITS | Encounter Summary ---
Author Organization [facility] Address [address] [place] [address] [place] [address] Phone Care Team Providers Care Cook Tortilla Name Role Phone Latosha Burgos MD Primary Care Provider + Encounter Details Date Type Department Care Team (Latest Contact Info) Description 10/19/2017 Prep for Surgery [facility] Orthopedics & Sports Medicine [address] [place] [address] Rosalia Handley MD [address] [place] [address] Orthopedics & Sports Medicine, [facility] [place] [address] [email or web address] Carpal tunnel syndrome of right wrist (Primary [...] Primary documented in this encounter Care Teams Cook Tortilla Relationship Specialty Start Date End Date Latosha Burgos MD [address] [place] [address] PCP - General Pediatrics 09/28/17 documented as of this encounter Additional Source Comments The information contained in this document represents components of the legal health record. It is not the complete legal health record.[facility]
--- OUTSIDE RECORDS SUMMARY | 2025-06-20 17:12 | XMS_ITS | Encounter Summary ---
Author Organization [facility] Address [address] [place] [address] Phone Care Team Providers Care Malt House Kiln Operator Name Role Phone Latosha Burgos MD Primary Care Provider + Encounter Details Date Type Department Care Team (Late st Contact Info) Description 11/05/2017 Procedure Pass OR Admitting Dept - Virtual Department [address] [place] [address] Social History Tobacco Use Types Packs/Day Years [...] on filedocumented in this encounter Care Teams Malt House Kiln Operator Relationship Specialty Start Date End Date Latosha Burgos MD [address] [place] [address] PCP - General Pediatrics 09/28/17 documented as of this encounter Additional Source Comments The information contained in this document represents components of the legal health record. It is not the complete legal health record.[facility]
--- OUTSIDE RECORDS SUMMARY | 2025-06-20 17:12 | XMS_ITS | Clinical Summary ---
Author Organization [facility] Address [address] [facility] [address] [place] [address] Phone Care Team Providers Care Spar Machine Operator Name Role Phone Latosha Burgos MD [...] this topic Medical Devices Not on file Advance Directives For more information, please contact: [phone] (9AM - 5PM Terri/[facility], Wednesday-Wednesday) * Full Code (Presumed) (Latest Code Status on File) Date Activated Date Inactivated Comments 11/05/2017 11:33 AM 11/05/2017 3:53 PM Care Teams Spar Machine Operator Relationship Specialty Start Date End Date Latosha Burgos MD [address] [place] [address] PCP - General Pediatrics 09/28/17 Additional Source Comments The information contained in this document represents components of the legal health record. It is not the complete legal health record.[facility]
== END 2025-06-20 15:19 | disposition home or self-care (01) ==
LOC: HO.HMCFM 14:23
PROVIDERS: PCP Physician Assistant; Visit Provider Physician Assistant
DX: F41.9 Anxiety disorder, unspecified (principal); F32.A Depression, unspecified; E03.9 Hypothyroidism, unspecified; G89.4 Chronic pain syndrome; E78.00 Pure hypercholesterolemia, unspecified; M79.89 Other specified soft tissue disorders; R60.0 Localized edema; L30.9 Dermatitis, unspecified

== ENCOUNTER 2025-07-13 13:22 | Outpatient (REF) | payer OTHER, SELFPAY ==
--- NOTE | ~2025-07-13 | US_ITS ---
EXAMINATION: US TRIPLEX LOWER EXTREMITY, BILATERAL CLINICAL INFORMATION: Pain COMPARISON: None available. TECHNIQUE: Color-flow triplex imaging with spectral analysis and compression Doppler were performed on the bilateral lower extremities. FINDINGS: Respiratory variation, normal compression and augmented flow are noted throughout the bilateral lower extremities. The visualized common femoral vein, superficial femoral vein, profunda femoral vein, popliteal vein and midcalf peroneal and posterior tibial venous segments show no evidence of deep venous thrombosis bilaterally. Normal spectral waveforms are seen. There is no Askew's cyst. US/US venous duplex LE BI IMPRESSION: No evidence of deep venous thrombosis involving the bilateral lower extremities. Electronically signed by: Jhonny Lopez MD 07/13/2025 02:14 PM EST
--- OUTSIDE RECORDS SUMMARY | 2025-07-13 13:26 | XMS_ITS | Data Portability ---
Author Organization [employer] [facility], [facility] Address [address] [place] [address] Care Team Providers Care Vibratory Pile Driver Name Role Phone HIM CCA OTHER Assessment No assessment recorded. Plan of Treatment Reminders Order Date Submit Date Provider Last Modified By Organization Details Last Modified Time Details Appointments None recorded. Lab None recorded. Referral None recorded. Procedures None recorded. Surgeries None recorded. Imaging None recorded. Medication Orders levofloxaci n 500 mg tablet 2023 024 [facility]/Pharmacy #[id number], [address] [place], [address], 4 14:07:54 levofloxaci n 500 mg tablet 2023 024 [facility]/Pharmacy #0838, [address] [place], [address], 4 14:07:56 Flonase Allergy Relief 50 mcg/actuati on nasal spray,suspe nsion 2023 024 [facility]/Pharmacy #0838, [address] [place], [address], 4 14:07:56 ketorolac 30 mg/mL (1 mL) injection solution 2022 023 [email or web address] Not available 3 12:40:55 Patient TargetsNo targets recorded. Patient InstructionsNo instructions recorded. Reason for Referral None Reported. Medical Equipment None Reported. Allergies Allergen ID Allergen Name Allergen Category Reaction Reaction Severity Criticality Documentation Date Start Date Code Code System Note Provider Name and Address Organization Details Recorded Time 12308 azithromy jeovany medicatio n Not available Not available Not available 07/15/2024 13507 RxNorm Not Available [facility] 4 12:23:58 7433 prednison e medicatio n Not available Not available Not available 05/16/2024 8640 RxNorm Not Available [facility] - production 4 03:37:27 Medications Name Sig [...] Updated DateTime 3 82 /min 152.4 cm 64521.4 g 14 /min 96 % 97.4 [degF] 143/88 mm[Hg] Not Available [employer] 3 12:26:50 Date Recorded Respiratory rate Body temperature Oxygen saturation Body weight Heart rate Systolic And Diastolic Provider Name and Address Organization Details Last Updated DateTime 4 16 /min 98.5 [degF] 98 % 46231.2 4 g 74 /min 148/98 mm[Hg] Not Available [facility] [employer] 4 14:05:02 Social History None recorded. Functional [...] 9362 Daily Gillespie MD Main - [facility] [address] [place] [phone] 10/28/2022 12:26:48 11/03/2022 10:03:40 Chronic pain syndrome 218156922 G89.4 56 year old female with a [...] issues with dispensing her regular pain regimen. 48154 BHUMI GAMEZ MD Main - [facility] [address] [place] [phone] 07/15/2024 14:05:00 07/18/2024 20:42:18 Sinusitis 47167003 J32.9 Evaluation in the field was performed by my special warfare operator colleague, as noted above, I provided [...] first dose was administer ed by the special warfare operator. Recommende d follow-up with the patient's [...] Sanchez Member ID Guarantor Name 07/15/2024 1 [facility] - DOS PRIOR TO 2022 - DUAL ELIGIBLE (MEDICARE REPLACEMENT/AD VANTAGE - HMO) Radha Duenas [id number] Radha Duenas 07/15/2024 1 [facility] - DOS ON OR AFTER 2022 - DUAL ELIGIBLE - LONG-TERM OPTIONS AND ONE CARE (MEDICARE REPLACEMENT/AD VANTAGE - HMO) Radha Duenas [id number] Radha Duenas Notes Date Note Type Note [...] go to ER and she declined. Offered [facility] and she agreed but also instructed Mbr to call Prescribing Provider to have them order the Lyrica as applicable. Mbr agreed to plan. Confirmed address and phone numbers same as in ECW and GC. Best number to reach Mbr is [phone]. Sent [facility] request in for today and sent GC activity to CP alerting CP about this call and TE. .................. .................. .................. .................. .................. .................. .................. ............... CRC Nursing Assessment: Comments: CRC RN DID NOT NEED FURTHER INFO Daily Gillespie MD [address] [place] [address],[address], [place], [address], [employer] 10/28/2022 12:41:01 07/15/2024 text/html ROS as noted in the HPI CRC Nurse Triage Notes (Ana Pham - RN): Chief Complaints: Common cold symptoms, Headache, Swelling PMH: Fibromyalgia, Chronic Back Pain, Obesity Comments: Bus Steward verified the member's name//address and phone number. [...] .................. .................. .................. .................. .................. .................. ............... Timber Mill Worker Note From Saman Judge: Pt co continued NC and sinus pressure. Pt finished antibiotics amox 2 weeks ago. Pt sts mucus is clear in color. Pt sts has off and on headache as well. Pt denies cough , fever , dizziness, NVD. Baseline vitals assessed WNL, afebrile, lungs clear. [facility] Jesus contacted and 500mg levo po , right med date dose and route , RX called in for levo and Flonase. Pt advised if not symptom free after levo round , to contact pcp to see ENT specialist. Pt education on signs indicating the ER. .................. .................. .................. .................. .................. .................. .................. ............... [facility] Consulted: Bhumi Gamez .................. .................. .................. .................. .................. .................. .................. ............... Disposition: Fulfilled BHUMI GAMEZ MD [address] [place] [address],[address], [place], [address], [employer] [facility] 07/15/2024 22:42:43 OBGyn Episode No OBEpisode recorded.
--- OUTSIDE RECORDS SUMMARY | 2025-07-13 13:26 | XMS_ITS | Encounter Summary ---
Author Organization [facility] Address [address] [place] [address] Phone Care Team Providers Care Physicians And Surgeons Name Role Phone Latosha Burgos MD Primary Care Provider + Encounter Details Date Type Department Care Team (Late st Contact Info) Description 07/29/2018 Procedure Pass OR Admitting Dept - Virtual Department [address] [place] [address] Social History Tobacco Use Types Packs/Day Years [...] on filedocumented in this encounter Care Teams Physicians And Surgeons Relationship Specialty Start Date End Date Latosha Burgos MD [address] [place] [address] PCP - General Pediatrics 09/28/17 documented as of this encounter Additional Source Comments The information contained in this document represents components of the legal health record. It is not the complete legal health record.[facility]
--- OUTSIDE RECORDS SUMMARY | 2025-07-13 13:26 | XMS_ITS | Encounter Summary ---
Author Organization [facility] Address [address] [facility] [address] [place] [address] Phone Care Team Providers Care Hydroblaster Name Role Phone Latosha Burgos MD Primary Care Provider + Encounter Details Date Type Department Care Team (Late st Contact Info) Description 02/22/2018 Prep for Surgery [facility] [address] [place] [address] Rosalia Handley MD [address] [place] [address] Orthopedics & Sports Medicine, [place] [address] [email or web address] Social History Tobacco Use Types Packs/Day Years [...] on filedocumented in this encounter Care Teams Hydroblaster Relationship Specialty Start Date End Date Latosha Burgos MD [address] [place] [address] PCP - General Pediatrics 09/28/17 documented as of this encounter Additional Source Comments The information contained in this document represents components of the legal health record. It is not the complete legal health record.[facility]
--- OUTSIDE RECORDS SUMMARY | 2025-07-13 13:26 | XMS_ITS | Encounter Summary ---
Author Organization [facility] Address [address] [place] [address] Phone Care Team Providers Care Concrete Boom Operator Name Role Phone Latosha Burgos MD Primary Care Provider + Encounter Details Date Type Department Care Team (Late st Contact Info) Description 07/29/2018 Procedure Pass OR Admitting Dept - Virtual Department [address] [place] [address] Social History Tobacco Use Types Packs/Day Years [...] on filedocumented in this encounter Care Teams Concrete Boom Operator Relationship Specialty Start Date End Date Latosha Burgos MD [address] [place] [address] PCP - General Pediatrics 09/28/17 documented as of this encounter Additional Source Comments The information contained in this document represents components of the legal health record. It is not the complete legal health record.[facility]
--- OUTSIDE RECORDS SUMMARY | 2025-07-13 13:26 | XMS_ITS | Clinical Summary ---
Author Organization [facility] Address [address] [facility] [address] [place] [address] Phone Care Team Providers Care Dieing Out Machine Operator Name Role Phone Latosha Burgos [...] Advance Directives For more information, please contact: [phone] (9AM - 5PM Terri/[facility], Wednesday-Wednesday) * Full Code (Presumed) (Latest Code Status on File) Date Activated Date Inactivated Comments 11/05/2017 11:33 AM 11/05/2017 3:53 PM Care Teams Dieing Out Machine Operator Relationship Specialty Start Date End Date Latosha Burgos MD [address] [place] [address] PCP - General Pediatrics 09/28/17 Additional Source Comments The information contained in this document represents components of the legal health record. It is not the complete legal health record.[facility]
--- OUTSIDE RECORDS SUMMARY | 2025-07-13 13:26 | XMS_ITS | Encounter Summary ---
Author Organization [facility] Address [address] [place] [address] Phone Care Team Providers Care Enamel Finisher Name Role Phone Latosha Burgos MD Primary Care Provider + Encounter Details Date Type Department Care Team (Late st Contact Info) Description 11/05/2017 Procedure Pass OR Admitting Dept - Virtual Department [address] [place] [address] Social History Tobacco Use Types Packs/Day Years [...] on filedocumented in this encounter Care Teams Enamel Finisher Relationship Specialty Start Date End Date Latosha Burgos MD [address] [place] [address] PCP - General Pediatrics 09/28/17 documented as of this encounter Additional Source Comments The information contained in this document represents components of the legal health record. It is not the complete legal health record.[facility]
--- OUTSIDE RECORDS SUMMARY | 2025-07-13 13:26 | XMS_ITS | Encounter Summary ---
Author Organization [facility] Address [address] [facility] [facility] [address] [place] [phone] Phone Care Team Providers Care Jewel Oliving Machine Operator Name Role Phone Latosha Burgos MD Primary Care Provider + Encounter Details Date Type Department Care Team (Latest Contact Info) Description 10/19/2017 Prep for Surgery [facility] [address] [place] [id number] Rosalia Handley MD [address] [place] [address] Orthopedics [facility] Sports Medicine, [place] [address] [email or web address] Carpal tunnel syndrome of right wrist (Primary [...] Primary documented in this encounter Care Teams Jewel Oliving Machine Operator Relationship Specialty Start Date End Date Latosha Burgos MD [address] [place] [id number] PCP - General Pediatrics 09/28/17 documented as of this encounter Additional Source Comments The information contained in this document represents components of the legal health record. It is not the complete legal health record.[facility]
== END 2025-07-13 13:23 | disposition home or self-care (01) ==
LOC: HO.US 13:22
PROVIDERS: PCP Physician Assistant; Visit Provider Physician Assistant
DX: M79.669 Pain in unspecified lower leg (principal); M79.89 Other specified soft tissue disorders
CPT/HCPCS: 93970

== ENCOUNTER → 2025-07-13 13:26 | Outpatient (BNV) | payer OTHER, SELFPAY | PROVIDERS: PCP Physician Assistant; Visit Provider Radiology Diagnostic Ultrasound | DX: M79.661 Pain in right lower leg (principal); M79.662 Pain in left lower leg | CPT/HCPCS: 93970 ==